=== PATIENT | female | born 1995 | race Caucasian/White ===

== ENCOUNTER → 2016-12-17 | Outpatient (REF) ==
[~2016-12-17] MED LIST: ALBUTEROL 90 MCG; ATARAX50 MG PO; CATAPRES0.2 MG PO; COLACE 100100 MG/CAP PO; COMPAZINE 110 MG/TAB PO; COREG 6.256.25 MG/TA PO; DESYREL 100MG100 MG PO; DESYREL 50MG50 MG PO; INVEGA INJ; INVEGA6 MG PO; LATUDA40 MG PO; LATUDA60 MG PO; LITHIUM 30300 MG/CAP PO; LITHIUM 60600 MG/CAP PO; LOXAPINE PO; MINIPRESS2 MG PO; NICORETTE GUM2 MG PO; PERI-COLACE 501 TAB PO; PRILOSEC 20MG20 MG PO; PROAIR HFA0.09 MG/AC IH; PROPYLTHIOURACI50 M1 PO; PROTONIX 40MG T40 MG PO; PROZAC40 MG PO; THORAZINE 550 MG/TAB PO; TRILAFON4 MG PO; TRILEPTAL 300M300 MG PO; VISTARIL 2525 MG/CAP PO; ZANTAC 150MG T150 MG PO
[2016-12-17 09:26] LABS: THYROID STIMULATING HORMONE < 0.015 uIU/mL (0.465-4.680)
== END ==
LOC: ZLAB.WCH 08:35
DX: Z01.89 Encounter for other specified special examinations (principal)

== ENCOUNTER 2016-12-18 12:25 | Emergency (ER) | payer MEDICAID ==
[~2016-12-18] VITALS: Ht 160 cm; Wt 104.5 kg
[~2016-12-18 12:25] MED LIST changes: -ATARAX50 MG PO; -CATAPRES0.2 MG PO; -COREG 6.256.25 MG/TA PO; -INVEGA INJ; -INVEGA6 MG PO; -PROAIR HFA0.09 MG/AC IH; -PROPYLTHIOURACI50 M1 PO; -PROTONIX 40MG T40 MG PO; -VISTARIL 2525 MG/CAP PO
[2016-12-18 12:26] VITALS: TEMP 97.9
[2016-12-18 13:42] LABS: BASO % 0.5 % (0.0-2.0); EOS # 0.5 (0.0-0.7); EOS % 6.5 % (0-4.0); GRAN # 3.9 (1.4-6.5); LYMPH # 2.8 (1.2-3.4); LYMPH % 36.2 % (20.0-51.0); MEAN CELL VOLUME 78 fl (80.0-100.0); MEAN CORPUSCULAR HGB CONC 31 g/dl (33.0-37.0); MEAN PLATELET VOLUME 9.1 fl (7.4-10.4); MONO # 0.5 (0.1-0.6); MONO % 6.5 % (1.7-9.3); PLATELET COUNT 395 K/mm3 (130-400); RED BLOOD COUNT 4.41 M/mm3 (4.10-5.30); REDCELL DISTRIBUTION WIDTH-CV 16.5 % (11.5-14.5); WHITE BLOOD COUNT 7.8 K/mm3 (4.8-10.8)
[2016-12-18 13:46] LABS: HEMATOCRIT 34.4 % (37.0-47.0); HEMOGLOBIN 10.8 g/dl (12.5-16.0); MEAN CORPUSCULAR HEMOGLOBIN 24 pg (27.0-31.0)
[2016-12-18 13:52] LABS: ADJUSTED CALCIUM 9.5 mg/dL (8.4-10.2); ALANINE AMINOTRANSFERASE 55 U/L (9-52); ALBUMIN 3.8 gm/dL (3.5-5.0); ALKALINE PHOSPHATASE 135 U/L (50-136); ANION GAP 10 mmol/L (7-16); BILIRUBIN,TOTAL 0.5 mg/dL (0.0-1.0); BLOOD UREA NITROGEN 8 mg/dL (7-17); CALCIUM 9.3 mg/dL (8.4-10.2); CARBON DIOXIDE 23 mmol/L (22-30); CHLORIDE 107 mmol/L (98-107); CREATININE, serum 0.53 mg/dL (0.52-1.25); GLUCOSE 81 mg/dL (74-106); POTASSIUM 4.1 mmol/L (3.4-5.0); SODIUM 139 mmol/L (137-145); TOTAL PROTEIN 6.7 gm/dL (6.4-8.2)
[2016-12-18 14:05] LABS: TROPONIN-I < 0.012 ng/mL (0.000-0.034)
[2016-12-18 14:08] LABS: PROLACTIN 34.4 ng/mL (3.0-18.6)
[2016-12-18 16:52] VITALS: BP 107/74; PULSE 87
[2016-12-19] MEDS ORDERED: DESYREL 100MG100 MG PO (04:22)
[2016-12-19] MEDS ORDERED: VISTARIL 2525 MG/CAP PO (04:24)
[2016-12-19] MEDS ORDERED: CATAPRES0.2 MG PO (04:25)
[2016-12-19] MEDS ORDERED: INVEGA INJ (04:26)
== END 2016-12-18 16:48 | disposition home or self-care (01) ==
LOC: COL.ER 12:25
PROVIDERS: Emergency Medicine
DX: R55 Syncope and collapse (principal); S09.90XA Unspecified injury of head, initial encounter; S19.9XXA Unspecified injury of neck, initial encounter; W18.39XA Other fall on same level, initial encounter; Y92.009 Unspecified place in unspecified non-institutional (private) residence as the place of occurrence of the external cause
CPT/HCPCS: J7030

== ENCOUNTER 2016-12-18 23:05 | Observation (INO) | payer MEDICAID ==
[~2016-12-18] VITALS: Ht 154.9 cm; Wt 104.8 kg
[2016-12-19 00:27] LABS: INR 0.9 (0.8-3.0); PROTHROMBIN TIME 10.3 SECONDS (9.7-12.8)
[2016-12-19 00:29] LABS: PARTIAL THROMBOPLASTIN TIME 17.7 SECONDS (26.0-37.0)
[2016-12-19 00:33] LABS: ADJUSTED CALCIUM 9.5 mg/dL (8.4-10.2); ALANINE AMINOTRANSFERASE 51 U/L (9-52); ALBUMIN 3.7 gm/dL (3.5-5.0); ALKALINE PHOSPHATASE 120 U/L (50-136); ANION GAP 9 mmol/L (7-16); BILIRUBIN,TOTAL 0.3 mg/dL (0.0-1.0); BLOOD UREA NITROGEN 12 mg/dL (7-17); CALCIUM 9.3 mg/dL (8.4-10.2); CARBON DIOXIDE 24 mmol/L (22-30); CHLORIDE 108 mmol/L (98-107); GLUCOSE 82 mg/dL (74-106); LIPASE 86 U/L (23-300); POTASSIUM 3.9 mmol/L (3.4-5.0); SODIUM 141 mmol/L (137-145); TOTAL PROTEIN 6.5 gm/dL (6.4-8.2)
[2016-12-19 00:37] LABS: ACETAMINOPHEN < 10 ug/mL (10-30); SALICYLATE < 1.0 mg/dL
[2016-12-19 00:49] LABS: BASO # 0.1 (0.0-0.2); BASO % 0.7 % (0.0-2.0); EOS # 0.5 (0.0-0.7); EOS % 5.3 % (0-4.0); GRAN # 4.4 (1.4-6.5); GRAN % 44.4 % (42.2-75.2); HEMATOCRIT 34.9 % (37.0-47.0); HEMOGLOBIN 10.8 g/dl (12.5-16.0); LYMPH # 4.3 (1.2-3.4); LYMPH % 43.3 % (20.0-51.0); MEAN CELL VOLUME 78 fl (80.0-100.0); MEAN CORPUSCULAR HEMOGLOBIN 24 pg (27.0-31.0); MEAN CORPUSCULAR HGB CONC 31 g/dl (33.0-37.0); MEAN PLATELET VOLUME 9.2 fl (7.4-10.4); MONO # 0.6 (0.1-0.6); PLATELET COUNT 425 K/mm3 (130-400); RED BLOOD COUNT 4.46 M/mm3 (4.10-5.30); REDCELL DISTRIBUTION WIDTH-CV 16.6 % (11.5-14.5)
[2016-12-19] MEDS ORDERED: DESYREL 100MG100 MG PO (04:22)
[2016-12-19] MEDS ORDERED: VISTARIL 2525 MG/CAP PO (04:24)
[2016-12-19] MEDS ORDERED: CATAPRES0.2 MG PO (04:25)
[2016-12-19] MEDS ORDERED: INVEGA INJ (04:26)
[2016-12-19 04:37] VITALS: BP 113/50; PULSE 83; TEMP 98.1
[2016-12-19 09:57] VITALS: BP 119/36; PULSE 91; TEMP 98.2
[2016-12-19 13:59] VITALS: BP 149/75; PULSE 75; TEMP 98.8
[2016-12-19 14:00] VITALS: BP 129/71; PULSE 103; TEMP 98.9
[2016-12-19 15:37] LABS: AMPHETAMINE URINE NEGATIVE; BARBITURATES URINE NEGATIVE; BENZODIAZEPINES URINE NEGATIVE; BUPRENORPHINE URINE NEGATIVE; METHADONE URINE NEGATIVE; OPIATES URINE NEGATIVE; OXYCODONE URINE NEGATIVE; PHENCYCLIDINE URINE NEGATIVE; PROPOXYPHENE URINE NEGATIVE; THC CANNABINOIDS URINE NEGATIVE
[2016-12-19 18:20] VITALS: BP 108/47; PULSE 99; TEMP 98.4
[2016-12-19 20:31] VITALS: BP 121/55; PULSE 96; TEMP 98.7
[2016-12-20 00:21] VITALS: BP 87/39; PULSE 96; TEMP 97.5
[2016-12-20 05:23] VITALS: BP 99/43; PULSE 76; TEMP 98.1
[2016-12-20 09:58] VITALS: BP 123/68; PULSE 77
[2016-12-20 14:31] VITALS: BP 104/51; PULSE 89; TEMP 98.7
[2016-12-20 18:07] VITALS: BP 144/66; PULSE 98; TEMP 98.5
[2016-12-21 00:11] VITALS: BP 108/67; PULSE 108; TEMP 98.4
[2016-12-21 06:15] VITALS: BP 94/41; PULSE 0
[2016-12-21 10:31] VITALS: BP 91/45; PULSE 83; TEMP 98.6
[2016-12-21 14:15] VITALS: BP 139/78; PULSE 100; TEMP 98.5
== END 2016-12-21 17:55 | disposition home or self-care (01) ==
LOC: COL.ER 23:05 → SDCO 12-19 00:38 → SURG 12-19 02:49
PROVIDERS: Emergency Medicine
DX: T18.4XXA Foreign body in colon, initial encounter (principal); K31.89 Other diseases of stomach and duodenum; K21.9 Gastro-esophageal reflux disease without esophagitis; F29 Unspecified psychosis not due to a substance or known physiological condition; E28.2 Polycystic ovarian syndrome; J45.909 Unspecified asthma, uncomplicated; F17.210 Nicotine dependence, cigarettes, uncomplicated; Z90.49 Acquired absence of other specified parts of digestive tract; Z86.59 Personal history of other mental and behavioral disorders; Z81.8 Family history of other mental and behavioral disorders
CPT/HCPCS: G0378; J2250; J3010; J7120

== ENCOUNTER 2017-01-08 15:20 | Observation (INO) | payer MEDICAID ==
[~2017-01-08] VITALS: Ht 157.5 cm; Wt 104.2 kg
[~2017-01-08 15:20] MED LIST changes: +CATAPRES0.2 MG PO; +INVEGA INJ; +VISTARIL 2525 MG/CAP PO
[2017-01-08 17:18] LABS: BASO # 0.1 (0.0-0.2); BASO % 0.6 % (0.0-2.0); EOS # 0.3 (0.0-0.7); EOS % 2.9 % (0-4.0); GRAN # 6.4 (1.4-6.5); GRAN % 60.3 % (42.2-75.2); HEMATOCRIT 37.9 % (37.0-47.0); LYMPH # 3.2 (1.2-3.4); LYMPH % 30.4 % (20.0-51.0); MEAN CELL VOLUME 78 fl (80.0-100.0); MEAN CORPUSCULAR HEMOGLOBIN 25 pg (27.0-31.0); MEAN CORPUSCULAR HGB CONC 31 g/dl (33.0-37.0); MEAN PLATELET VOLUME 9.3 fl (7.4-10.4); MONO # 0.6 (0.1-0.6); MONO % 5.6 % (1.7-9.3); PLATELET COUNT 407 K/mm3 (130-400); RED BLOOD COUNT 4.85 M/mm3 (4.10-5.30); REDCELL DISTRIBUTION WIDTH-CV 16.6 % (11.5-14.5); WHITE BLOOD COUNT 10.6 K/mm3 (4.8-10.8)
[2017-01-08 17:19] LABS: HEMOGLOBIN 11.9 g/dl (12.5-16.0)
[2017-01-08 17:38] LABS: PH 5 (5-8); URINE APPEARANCE Cloudy; URINE BACTERIA Rare /hpf; URINE BILIRUBIN Negative (NEGATIVE); URINE BLOOD Negative (NEGATIVE); URINE COLOR Yellow; URINE GLUCOSE Negative (NEGATIVE); URINE KETONE Negative (NEGATIVE); URINE UROBILINOGEN Negative (NEGATIVE)
[2017-01-08 17:42] LABS: ADJUSTED CALCIUM 9.6 mg/dL (8.4-10.2); ALANINE AMINOTRANSFERASE 25 U/L (9-52); ALBUMIN 4.5 gm/dL (3.5-5.0); ALKALINE PHOSPHATASE 135 U/L (50-136); ANION GAP 12 mmol/L (7-16); BILIRUBIN,TOTAL 0.5 mg/dL (0.0-1.0); BLOOD UREA NITROGEN 14 mg/dL (7-17); CARBON DIOXIDE 25 mmol/L (22-30); CHLORIDE 104 mmol/L (98-107); GLUCOSE 83 mg/dL (74-106); LIPASE 49 U/L (23-300); POTASSIUM 3.8 mmol/L (3.4-5.0); SODIUM 141 mmol/L (137-145)
[2017-01-08 17:43] LABS: ACETAMINOPHEN < 10 ug/mL (10-30); SALICYLATE < 1.0 mg/dL
[2017-01-08 17:47] LABS: AMPHETAMINE URINE NEGATIVE; BARBITURATES URINE NEGATIVE; BENZODIAZEPINES URINE NEGATIVE; BUPRENORPHINE URINE NEGATIVE; METHADONE URINE NEGATIVE; OPIATES URINE NEGATIVE; OXYCODONE URINE NEGATIVE; PHENCYCLIDINE URINE NEGATIVE; PROPOXYPHENE URINE NEGATIVE; THC CANNABINOIDS URINE NEGATIVE
[2017-01-08 20:58] LABS: CHLAMYDIA/TRACH by PCR Female NOT DETECTED; NEISSERIA GON by PCR Female NOT DETECTED
[2017-01-08] MEDS ORDERED: COREG 6.256.25 MG/TA PO (23:03)
[2017-01-09 00:36] VITALS: BP 114/66; PULSE 81; TEMP 98.4
[2017-01-09 01:18] VITALS: BP 114/66; PULSE 81; TEMP 98.4
[2017-01-09 07:46] VITALS: BP 99/52; PULSE 56; TEMP 97.9
[2017-01-09 20:45] VITALS: BP 106/54; PULSE 86; TEMP 99.6
== END 2017-01-10 16:55 ==
LOC: COL.ER 15:20 → ICU 23:35
PROVIDERS: Emergency Medicine
DX: F43.10 Post-traumatic stress disorder, unspecified (principal); F32.9 Major depressive disorder, single episode, unspecified; R45.851 Suicidal ideations; F51.04 Psychophysiologic insomnia; K21.9 Gastro-esophageal reflux disease without esophagitis; J45.909 Unspecified asthma, uncomplicated; E28.2 Polycystic ovarian syndrome; R10.30 Lower abdominal pain, unspecified; Z90.49 Acquired absence of other specified parts of digestive tract
CPT/HCPCS: 90791-AI; G0378

== ENCOUNTER 2017-01-13 17:26 | Emergency (ER) | payer MEDICAID ==
[~2017-01-13] VITALS: Ht 157.5 cm; Wt 104.5 kg
[~2017-01-13 17:26] MED LIST changes: +COREG 6.256.25 MG/TA PO
[2017-01-13 17:28] VITALS: TEMP 98.1
[2017-01-13 18:15] LABS: BASO % 0.4 % (0.0-2.0); EOS # 0.4 (0.0-0.7); EOS % 3.5 % (0-4.0); GRAN # 6.5 (1.4-6.5); GRAN % 58.8 % (42.2-75.2); LYMPH # 3.4 (1.2-3.4); LYMPH % 30.7 % (20.0-51.0); MEAN CELL VOLUME 78 fl (80.0-100.0); MEAN CORPUSCULAR HGB CONC 32 g/dl (33.0-37.0); MEAN PLATELET VOLUME 9.1 fl (7.4-10.4); MONO # 0.7 (0.1-0.6); MONO % 6.4 % (1.7-9.3); PLATELET COUNT 358 K/mm3 (130-400); RED BLOOD COUNT 4.55 M/mm3 (4.10-5.30); REDCELL DISTRIBUTION WIDTH-CV 16.8 % (11.5-14.5)
[2017-01-13 18:16] LABS: HEMATOCRIT 35.4 % (37.0-47.0); HEMOGLOBIN 11.2 g/dl (12.5-16.0); MEAN CORPUSCULAR HEMOGLOBIN 25 pg (27.0-31.0)
[2017-01-13 18:23] LABS: ADJUSTED CALCIUM 9.4 mg/dL (8.4-10.2); ALBUMIN 4.2 gm/dL (3.5-5.0); BILIRUBIN,TOTAL 0.4 mg/dL (0.0-1.0); CALCIUM 9.6 mg/dL (8.4-10.2); CREATININE, serum 0.61 mg/dL (0.52-1.25); TOTAL PROTEIN 7.3 gm/dL (6.4-8.2)
[2017-01-13] MEDS ORDERED: INVEGA6 MG PO (19:13)
[2017-01-13 19:14] VITALS: BP 117/67; PULSE 101
[2017-01-14] MEDS ORDERED: ATARAX50 MG PO (15:17)
[2017-01-14] MEDS ORDERED: PROPYLTHIOURACI50 M1 PO (15:24)
== END 2017-01-13 19:47 | disposition home or self-care (01) ==
LOC: COL.ER 17:26
PROVIDERS: Nurse Practitioner
DX: S99.912A Unspecified injury of left ankle, initial encounter (principal); S93.402A Sprain of unspecified ligament of left ankle, initial encounter; S83.92XA Sprain of unspecified site of left knee, initial encounter; R42 Dizziness and giddiness; F31.9 Bipolar disorder, unspecified; F43.10 Post-traumatic stress disorder, unspecified; F41.9 Anxiety disorder, unspecified; J45.909 Unspecified asthma, uncomplicated; F17.210 Nicotine dependence, cigarettes, uncomplicated; W18.39XA Other fall on same level, initial encounter; Y92.009 Unspecified place in unspecified non-institutional (private) residence as the place of occurrence of the external cause

== ENCOUNTER 2017-01-14 13:36 | Observation (INO) | payer MEDICAID ==
[~2017-01-14] VITALS: Ht 157.5 cm; Wt 102.7 kg
[~2017-01-14 13:36] MED LIST changes: +INVEGA6 MG PO
[2017-01-14 14:45] LABS: PH 6 (5-8); SQUAMOUS EPITHELIAL 0-2 /hpf; URINE APPEARANCE Clear; URINE BACTERIA None Seen /hpf; URINE BILIRUBIN Negative (NEGATIVE); URINE BLOOD Negative (NEGATIVE); URINE COLOR Yellow; URINE GLUCOSE Negative (NEGATIVE); URINE KETONE Negative (NEGATIVE); URINE RBC 0-2 /hpf; URINE UROBILINOGEN Negative (NEGATIVE)
[2017-01-14 15:01] LABS: AMPHETAMINE URINE NEGATIVE; BARBITURATES URINE NEGATIVE; BENZODIAZEPINES URINE NEGATIVE; BUPRENORPHINE URINE NEGATIVE; METHADONE URINE NEGATIVE; OPIATES URINE NEGATIVE; OXYCODONE URINE NEGATIVE; PHENCYCLIDINE URINE NEGATIVE; PROPOXYPHENE URINE NEGATIVE; THC CANNABINOIDS URINE NEGATIVE
[2017-01-14 15:03] LABS: BASO # 0.1 (0.0-0.2); BASO % 0.5 % (0.0-2.0); EOS # 0.4 (0.0-0.7); GRAN # 8.4 (1.4-6.5); GRAN % 65.1 % (42.2-75.2); LYMPH # 3.2 (1.2-3.4); MEAN CELL VOLUME 78 fl (80.0-100.0); MEAN CORPUSCULAR HGB CONC 32 g/dl (33.0-37.0); MEAN PLATELET VOLUME 9.2 fl (7.4-10.4); MONO # 0.8 (0.1-0.6); MONO % 6.2 % (1.7-9.3); PLATELET COUNT 366 K/mm3 (130-400); REDCELL DISTRIBUTION WIDTH-CV 17.2 % (11.5-14.5); WHITE BLOOD COUNT 12.9 K/mm3 (4.8-10.8)
[2017-01-14 15:04] LABS: HEMOGLOBIN 11.4 g/dl (12.5-16.0); MEAN CORPUSCULAR HEMOGLOBIN 25 pg (27.0-31.0)
[2017-01-14] MEDS ORDERED: ATARAX50 MG PO (15:17)
[2017-01-14 15:24] LABS: ADJUSTED CALCIUM 9.3 mg/dL (8.4-10.2); ALANINE AMINOTRANSFERASE 27 U/L (9-52); ALBUMIN 4.3 gm/dL (3.5-5.0); ALKALINE PHOSPHATASE 119 U/L (50-136); ANION GAP 10 mmol/L (7-16); BILIRUBIN,TOTAL 0.4 mg/dL (0.0-1.0); BLOOD UREA NITROGEN 17 mg/dL (7-17); CALCIUM 9.5 mg/dL (8.4-10.2); CARBON DIOXIDE 24 mmol/L (22-30); CHLORIDE 105 mmol/L (98-107); CREATININE, serum 0.66 mg/dL (0.52-1.25); GLUCOSE 68 mg/dL (74-106); LIPASE 78 U/L (23-300); POTASSIUM 3.6 mmol/L (3.4-5.0); SODIUM 139 mmol/L (137-145); TOTAL PROTEIN 7.4 gm/dL (6.4-8.2)
[2017-01-14] MEDS ORDERED: PROPYLTHIOURACI50 M1 PO (15:24)
[2017-01-14 15:29] LABS: ACETAMINOPHEN < 10 ug/mL (10-30); SALICYLATE < 1.0 mg/dL
[2017-01-14 15:35] LABS: TROPONIN-I < 0.012 ng/mL (0.000-0.034)
[2017-01-14 23:56] VITALS: BP 109/57; PULSE 77; TEMP 98.4
[2017-01-15 00:26] VITALS: BP 109/57; PULSE 77; TEMP 98.4
[2017-01-15 18:08] LABS: PH 7 (5-8); SQUAMOUS EPITHELIAL 0-2 /hpf; URINE APPEARANCE Cloudy; URINE BACTERIA Rare /hpf; URINE BILIRUBIN Negative (NEGATIVE); URINE BLOOD Negative (NEGATIVE); URINE COLOR Yellow; URINE GLUCOSE Negative (NEGATIVE); URINE KETONE Negative (NEGATIVE); URINE RBC 0-2 /hpf; URINE UROBILINOGEN Negative (NEGATIVE)
[2017-01-15 20:19] VITALS: BP 129/74; PULSE 95; TEMP 99.2
[2017-01-16 10:35] VITALS: BP 122/69; PULSE 82; TEMP 98.6
[2017-01-16 15:12] LABS: BASO # 0.1 (0.0-0.2); BASO % 0.5 % (0.0-2.0); EOS # 0.6 (0.0-0.7); EOS % 4.5 % (0-4.0); GRAN # 7.4 (1.4-6.5); GRAN % 59.6 % (42.2-75.2); LYMPH # 3.6 (1.2-3.4); LYMPH % 28.8 % (20.0-51.0); MEAN CELL VOLUME 77 fl (80.0-100.0); MEAN CORPUSCULAR HGB CONC 32 g/dl (33.0-37.0); MEAN PLATELET VOLUME 9.3 fl (7.4-10.4); MONO # 0.8 (0.1-0.6); MONO % 6.4 % (1.7-9.3); PLATELET COUNT 344 K/mm3 (130-400); WHITE BLOOD COUNT 12.4 K/mm3 (4.8-10.8)
[2017-01-16 15:19] LABS: HEMATOCRIT 36.4 % (37.0-47.0); HEMOGLOBIN 11.6 g/dl (12.5-16.0); MEAN CORPUSCULAR HEMOGLOBIN 25 pg (27.0-31.0)
== END 2017-01-16 21:05 ==
LOC: COL.ER 13:36 → ICU 23:07
PROVIDERS: Physician Assistant; Psychiatry & Neurology Psychiatry
DX: F31.9 Bipolar disorder, unspecified (principal); F43.10 Post-traumatic stress disorder, unspecified; F60.3 Borderline personality disorder; R41.83 Borderline intellectual functioning; R45.1 Restlessness and agitation; R07.9 Chest pain, unspecified
CPT/HCPCS: 90791-AI; G0378

== ENCOUNTER 2017-01-24 23:17 | Emergency (ER) | payer MEDICAID ==
[~2017-01-24] VITALS: Ht 157.5 cm; Wt 109.1 kg
[~2017-01-24 23:17] MED LIST changes: +ATARAX50 MG PO; +PROPYLTHIOURACI50 M1 PO
[2017-01-24 23:18] VITALS: TEMP 99.3
[2017-01-24] MEDS ORDERED: PROAIR HFA0.09 MG/AC IH (23:24)
[2017-01-24 23:47] LABS: BASO # 0.1 (0.0-0.2); BASO % 0.5 % (0.0-2.0); EOS # 0.5 (0.0-0.7); EOS % 3.5 % (0-4.0); GRAN # 7.6 (1.4-6.5); GRAN % 58.9 % (42.2-75.2); LYMPH % 30.9 % (20.0-51.0); MEAN CELL VOLUME 77 fl (80.0-100.0); MEAN CORPUSCULAR HGB CONC 32 g/dl (33.0-37.0); MEAN PLATELET VOLUME 9.1 fl (7.4-10.4); MONO # 0.7 (0.1-0.6); MONO % 5.6 % (1.7-9.3); PLATELET COUNT 384 K/mm3 (130-400); RED BLOOD COUNT 4.31 M/mm3 (4.10-5.30)
[2017-01-24 23:50] LABS: HEMATOCRIT 33.3 % (37.0-47.0); HEMOGLOBIN 10.6 g/dl (12.5-16.0); MEAN CORPUSCULAR HEMOGLOBIN 25 pg (27.0-31.0)
[2017-01-24 23:59] LABS: ALANINE AMINOTRANSFERASE 49 U/L (9-52); ALKALINE PHOSPHATASE 141 U/L (50-136); ANION GAP 13 mmol/L (7-16); AST,SGOT 54 U/L (15-37); BILIRUBIN,TOTAL 0.3 mg/dL (0.0-1.0); BLOOD UREA NITROGEN 14 mg/dL (7-17); CALCIUM 9.3 mg/dL (8.4-10.2); CARBON DIOXIDE 19 mmol/L (22-30); CHLORIDE 110 mmol/L (98-107); CREATININE, serum 0.59 mg/dL (0.52-1.25); GLUCOSE 118 mg/dL (74-106); LIPASE 125 U/L (23-300); POTASSIUM 3.9 mmol/L (3.4-5.0); SODIUM 143 mmol/L (137-145); TOTAL PROTEIN 7.1 gm/dL (6.4-8.2)
[2017-01-25] LABS: C-REACTIVE PROTEIN < 0.5 mg/dL (0.0-0.9)
[2017-01-25 00:08] LABS: TROPONIN-I < 0.012 ng/mL (0.000-0.034)
[2017-01-25 00:09] LABS: COLLECTION METHOD CLEAN CATCH
[2017-01-25 00:14] LABS: MUCOUS Present /lpf; PH 5 (5-8); SQUAMOUS EPITHELIAL 0-2 /hpf; URINE APPEARANCE Clear; URINE BACTERIA None Seen /hpf; URINE BILIRUBIN Negative (NEGATIVE); URINE BLOOD 2+ (NEGATIVE); URINE COLOR Yellow; URINE GLUCOSE Negative (NEGATIVE); URINE KETONE Trace (NEGATIVE); URINE LEUKOCYTE ESTERASE Negative (NEGATIVE); URINE NITRATE Negative (NEGATIVE); URINE PROTEIN(semi-quant) Negative (NEGATIVE); URINE RBC 0-2 /hpf; URINE UROBILINOGEN Negative (NEGATIVE)
[2017-01-25 00:21] LABS: TRICYCLIC ANTIDEPRESS URINE NEGATIVE
[2017-01-25 02:36] VITALS: BP 129/59
[2017-01-25] MEDS ORDERED: PROTONIX 40MG T40 MG PO (02:37)
[2017-01-25 02:55] VITALS: PULSE 103
[2017-05-20] MEDS ORDERED: COREG 25MG25 MG/TAB PO (18:20)
[2017-07-27] MEDS ORDERED: FLEXERIL 1010 MG/TAB PO (03:35)
[2018-10-03] MEDS ORDERED: BUSPAR DIVIDOSE15 MG PO (00:22)
== END 2017-01-25 02:56 | disposition home or self-care (01) ==
LOC: COL.ER 23:17
PROVIDERS: Emergency Medicine
DX: K21.9 Gastro-esophageal reflux disease without esophagitis (principal); K59.00 Constipation, unspecified; F17.210 Nicotine dependence, cigarettes, uncomplicated; Z90.49 Acquired absence of other specified parts of digestive tract
CPT/HCPCS: J7030

== ENCOUNTER 2017-02-02 18:20 | Emergency (ER) | payer MEDICAID ==
[~2017-02-02] VITALS: Ht 157.5 cm; Wt 104.5 kg
[~2017-02-02 18:20] MED LIST changes: +PROAIR HFA0.09 MG/AC IH; +PROTONIX 40MG T40 MG PO
[2017-02-02 18:21] VITALS: TEMP 100.1
[2017-02-02 19:16] LABS: BASO # 0.1 (0.0-0.2); BASO % 0.5 % (0.0-2.0); EOS # 0.2 (0.0-0.7); EOS % 2.5 % (0-4.0); GRAN # 5.6 (1.4-6.5); GRAN % 58.7 % (42.2-75.2); LYMPH % 31.9 % (20.0-51.0); MEAN CELL VOLUME 79 fl (80.0-100.0); MEAN CORPUSCULAR HGB CONC 32 g/dl (33.0-37.0); MEAN PLATELET VOLUME 8.7 fl (7.4-10.4); MONO # 0.6 (0.1-0.6); MONO % 6.2 % (1.7-9.3); PLATELET COUNT 416 K/mm3 (130-400); RED BLOOD COUNT 4.58 M/mm3 (4.10-5.30); REDCELL DISTRIBUTION WIDTH-CV 18.3 % (11.5-14.5); WHITE BLOOD COUNT 9.5 K/mm3 (4.8-10.8)
[2017-02-02 19:20] LABS: HEMATOCRIT 36.1 % (37.0-47.0); HEMOGLOBIN 11.4 g/dl (12.5-16.0); MEAN CORPUSCULAR HEMOGLOBIN 25 pg (27.0-31.0)
[2017-02-02 19:33] LABS: ADJUSTED CALCIUM 9.5 mg/dL (8.4-10.2); ALBUMIN 4.4 gm/dL (3.5-5.0); BILIRUBIN,TOTAL 0.5 mg/dL (0.0-1.0); CALCIUM 9.8 mg/dL (8.4-10.2); CREATININE, serum 0.59 mg/dL (0.52-1.25); POTASSIUM 4.1 mmol/L (3.4-5.0); TOTAL PROTEIN 7.8 gm/dL (6.4-8.2)
[2017-02-02 20:51] VITALS: BP 134/89; PULSE 95
== END 2017-02-02 20:52 | disposition home or self-care (01) ==
LOC: COL.ER 18:20
PROVIDERS: Emergency Medicine
DX: E05.90 Thyrotoxicosis, unspecified without thyrotoxic crisis or storm (principal); F41.9 Anxiety disorder, unspecified; R06.00 Dyspnea, unspecified; R10.9 Unspecified abdominal pain; R07.9 Chest pain, unspecified; F31.9 Bipolar disorder, unspecified; F43.10 Post-traumatic stress disorder, unspecified; I10 Essential (primary) hypertension; F17.210 Nicotine dependence, cigarettes, uncomplicated
CPT/HCPCS: J7030

== ENCOUNTER → 2017-02-25 | Outpatient (REF) | LOC: ZLAB.WCH 08:37 | DX: Z01.89 Encounter for other specified special examinations (principal) ==

== ENCOUNTER 2017-03-02 21:46 | Emergency (ER) | payer MEDICAID ==
[~2017-03-02] VITALS: Ht 157.5 cm; Wt 109.1 kg
[2017-03-02 21:50] VITALS: TEMP 98.4
[2017-03-02 22:13] LABS: BASO # 0.1 (0.0-0.2); BASO % 0.5 % (0.0-2.0); EOS # 0.3 (0.0-0.7); EOS % 3.5 % (0-4.0); GRAN # 5.5 (1.4-6.5); GRAN % 59.1 % (42.2-75.2); HEMATOCRIT 41.4 % (37.0-47.0); HEMOGLOBIN 12.8 g/dl (12.5-16.0); LYMPH # 2.9 (1.2-3.4); LYMPH % 31.6 % (20.0-51.0); MEAN CELL VOLUME 82 fl (80.0-100.0); MEAN CORPUSCULAR HEMOGLOBIN 25 pg (27.0-31.0); MEAN CORPUSCULAR HGB CONC 31 g/dl (33.0-37.0); MONO # 0.5 (0.1-0.6); MONO % 5.1 % (1.7-9.3); PLATELET COUNT 373 K/mm3 (130-400); RED BLOOD COUNT 5.05 M/mm3 (4.10-5.30); WHITE BLOOD COUNT 9.2 K/mm3 (4.8-10.8)
[2017-03-02 22:28] LABS: ADJUSTED CALCIUM 9.7 mg/dL (8.4-10.2); ALANINE AMINOTRANSFERASE 33 U/L (9-52); ALBUMIN 4.4 gm/dL (3.5-5.0); ALKALINE PHOSPHATASE 138 U/L (50-136); ANION GAP 13 mmol/L (7-16); BILIRUBIN,TOTAL 0.5 mg/dL (0.0-1.0); BLOOD UREA NITROGEN 7 mg/dL (7-17); C-REACTIVE PROTEIN 0.6 mg/dL (0.0-0.9); CARBON DIOXIDE 23 mmol/L (22-30); CHLORIDE 106 mmol/L (98-107); CREATININE, serum 0.59 mg/dL (0.52-1.25); GLUCOSE 91 mg/dL (74-106); POTASSIUM 3.7 mmol/L (3.4-5.0); SODIUM 142 mmol/L (137-145); TOTAL PROTEIN 7.8 gm/dL (6.4-8.2)
[2017-03-02 22:48] LABS: TROPONIN-I < 0.012 ng/mL (0.000-0.034)
[2017-03-02 23:30] VITALS: BP 127/92; PULSE 104
== END 2017-03-02 23:30 | disposition home or self-care (01) ==
LOC: COL.ER 21:46
PROVIDERS: Emergency Medicine
DX: R07.89 Other chest pain (principal); R00.0 Tachycardia, unspecified; E05.00 Thyrotoxicosis with diffuse goiter without thyrotoxic crisis or storm
CPT/HCPCS: J1885

== ENCOUNTER 2017-03-03 23:51 | Emergency (ER) | payer MEDICAID ==
[2017-03-03 23:55] VITALS: TEMP 98.7
[2017-03-04 00:28] LABS: BASO # 0.1 (0.0-0.2); BASO % 0.9 % (0.0-2.0); EOS # 0.3 (0.0-0.7); EOS % 3.7 % (0-4.0); GRAN # 4.1 (1.4-6.5); GRAN % 49.7 % (42.2-75.2); HEMATOCRIT 38.3 % (37.0-47.0); HEMOGLOBIN 12.1 g/dl (12.5-16.0); LYMPH # 3.2 (1.2-3.4); LYMPH % 39.1 % (20.0-51.0); MEAN CELL VOLUME 82 fl (80.0-100.0); MEAN CORPUSCULAR HEMOGLOBIN 26 pg (27.0-31.0); MEAN CORPUSCULAR HGB CONC 32 g/dl (33.0-37.0); MEAN PLATELET VOLUME 8.9 fl (7.4-10.4); MONO # 0.5 (0.1-0.6); MONO % 6.4 % (1.7-9.3); PLATELET COUNT 380 K/mm3 (130-400); WHITE BLOOD COUNT 8.2 K/mm3 (4.8-10.8)
[2017-03-04 00:40] LABS: ADJUSTED CALCIUM 9.6 mg/dL (8.4-10.2); ALBUMIN 4.1 gm/dL (3.5-5.0); BILIRUBIN,TOTAL 0.4 mg/dL (0.0-1.0); CALCIUM 9.7 mg/dL (8.4-10.2); CREATININE, serum 0.66 mg/dL (0.52-1.25); POTASSIUM 3.9 mmol/L (3.4-5.0); TOTAL PROTEIN 7.6 gm/dL (6.4-8.2)
[2017-03-04 02:59] VITALS: BP 136/89; PULSE 93
[2017-03-04] MEDS ORDERED: PROPYLTHIOURACI50 M1 (22:16)
[2017-03-04] MEDS ORDERED: REVIA 50MG TABL50 MG PO (22:18)
[2017-03-04] MEDS ORDERED: FIORICET 325 MG1 TA1 PO (22:44)
== END 2017-03-04 03:03 | disposition home or self-care (01) ==
LOC: COL.ER 23:51
PROVIDERS: Emergency Medicine
DX: R00.2 Palpitations (principal); R51 Headache; R11.12 Projectile vomiting; F31.9 Bipolar disorder, unspecified; F41.9 Anxiety disorder, unspecified; F43.10 Post-traumatic stress disorder, unspecified; E05.00 Thyrotoxicosis with diffuse goiter without thyrotoxic crisis or storm
CPT/HCPCS: J1200; J3230; J7030

== ENCOUNTER 2017-03-04 19:08 | Emergency (ER) | payer MEDICAID ==
[~2017-03-04] VITALS: Ht 157.5 cm; Wt 110.9 kg
[2017-03-04 19:13] VITALS: TEMP 98.9
[2017-03-04 20:46] LABS: BASO # 0.1 (0.0-0.2); BASO % 0.6 % (0.0-2.0); EOS # 0.3 (0.0-0.7); EOS % 3.1 % (0-4.0); GRAN # 6.5 (1.4-6.5); GRAN % 63.3 % (42.2-75.2); HEMATOCRIT 39.8 % (37.0-47.0); HEMOGLOBIN 12.5 g/dl (12.5-16.0); LYMPH # 2.8 (1.2-3.4); LYMPH % 27.4 % (20.0-51.0); MEAN CELL VOLUME 82 fl (80.0-100.0); MEAN CORPUSCULAR HEMOGLOBIN 26 pg (27.0-31.0); MEAN CORPUSCULAR HGB CONC 31 g/dl (33.0-37.0); MEAN PLATELET VOLUME 9.1 fl (7.4-10.4); MONO # 0.6 (0.1-0.6); MONO % 5.4 % (1.7-9.3); PLATELET COUNT 390 K/mm3 (130-400); RED BLOOD COUNT 4.86 M/mm3 (4.10-5.30); WHITE BLOOD COUNT 10.3 K/mm3 (4.8-10.8)
[2017-03-04 20:56] LABS: ADJUSTED CALCIUM 9.7 mg/dL (8.4-10.2); ALANINE AMINOTRANSFERASE 39 U/L (9-52); ALBUMIN 4.3 gm/dL (3.5-5.0); ALKALINE PHOSPHATASE 127 U/L (50-136); ANION GAP 11 mmol/L (7-16); BILIRUBIN,TOTAL 0.5 mg/dL (0.0-1.0); BLOOD UREA NITROGEN 12 mg/dL (7-17); CALCIUM 9.9 mg/dL (8.4-10.2); CARBON DIOXIDE 26 mmol/L (22-30); CHLORIDE 105 mmol/L (98-107); CREATININE, serum 0.71 mg/dL (0.52-1.25); GLUCOSE 78 mg/dL (74-106); POTASSIUM 3.9 mmol/L (3.4-5.0); SODIUM 142 mmol/L (137-145)
[2017-03-04 21:01] LABS: ALCOHOL(ethanol),MEDICAL < 10 mg/dL
[2017-03-04] MEDS ORDERED: PROPYLTHIOURACI50 M1 (22:16)
[2017-03-04] MEDS ORDERED: REVIA 50MG TABL50 MG PO (22:18)
[2017-03-04] MEDS ORDERED: FIORICET 325 MG1 TA1 PO (22:44)
[2017-03-04 22:52] VITALS: BP 106/87; PULSE 98
== END 2017-03-04 22:53 | disposition home or self-care (01) ==
LOC: COL.ER 19:08
PROVIDERS: Emergency Medicine
DX: G43.909 Migraine, unspecified, not intractable, without status migrainosus (principal); E05.00 Thyrotoxicosis with diffuse goiter without thyrotoxic crisis or storm; F43.10 Post-traumatic stress disorder, unspecified; F60.9 Personality disorder, unspecified; J45.909 Unspecified asthma, uncomplicated; F17.210 Nicotine dependence, cigarettes, uncomplicated; Z90.49 Acquired absence of other specified parts of digestive tract
CPT/HCPCS: J7030

== ENCOUNTER → 2017-03-06 | Outpatient (REF) ==
[~2017-03-06] MED LIST changes: +FIORICET 325 MG1 TA1 PO; +PROPYLTHIOURACI50 M1; +REVIA 50MG TABL50 MG PO
[2017-03-06 11:56] LABS: CHLAMYDIA/TRACH by PCR Female NOT DETECTED; NEISSERIA GON by PCR Female NOT DETECTED
== END ==
LOC: ZLAB.WCH 08:56
PROVIDERS: Nurse Practitioner Primary Care
DX: Z01.89 Encounter for other specified special examinations (principal)

== ENCOUNTER 2017-05-14 13:51 | Emergency (ER) | payer MEDICAID ==
[~2017-05-14] VITALS: Ht 160 cm; Wt 113.6 kg
[2017-05-14 14:13] VITALS: TEMP 99
[2017-05-14 16:18] LABS: BASO # 0.1 (0.0-0.2); BASO % 0.5 % (0.0-2.0); EOS # 0.5 (0.0-0.7); EOS % 3.8 % (0-4.0); GRAN # 8.6 (1.4-6.5); GRAN % 64.3 % (42.2-75.2); HEMATOCRIT 44.7 % (37.0-47.0); HEMOGLOBIN 14.3 g/dl (12.5-16.0); LYMPH # 3.5 (1.2-3.4); LYMPH % 26.2 % (20.0-51.0); MEAN CELL VOLUME 85 fl (80.0-100.0); MEAN CORPUSCULAR HEMOGLOBIN 27 pg (27.0-31.0); MEAN CORPUSCULAR HGB CONC 32 g/dl (33.0-37.0); MEAN PLATELET VOLUME 9.2 fl (7.4-10.4); MONO # 0.6 (0.1-0.6); MONO % 4.7 % (1.7-9.3); PLATELET COUNT 399 K/mm3 (130-400); RED BLOOD COUNT 5.28 M/mm3 (4.10-5.30); WHITE BLOOD COUNT 13.3 K/mm3 (4.8-10.8)
[2017-05-14 16:30] LABS: ADJUSTED CALCIUM 9.3 mg/dL (8.4-10.2); ALANINE AMINOTRANSFERASE 36 U/L (9-52); ALBUMIN 4.6 gm/dL (3.5-5.0); ALKALINE PHOSPHATASE 128 U/L (50-136); ANION GAP 9 mmol/L (7-16); BILIRUBIN,TOTAL 0.3 mg/dL (0.0-1.0); BLOOD UREA NITROGEN 7 mg/dL (7-17); CALCIUM 9.8 mg/dL (8.4-10.2); CARBON DIOXIDE 26 mmol/L (22-30); CHLORIDE 106 mmol/L (98-107); CREATININE, serum 0.61 mg/dL (0.52-1.25); GLUCOSE 86 mg/dL (74-106); POTASSIUM 4.3 mmol/L (3.4-5.0); SODIUM 141 mmol/L (137-145); TOTAL PROTEIN 8.1 gm/dL (6.4-8.2)
[2017-05-14 16:31] LABS: ACETAMINOPHEN < 10 ug/mL (10-30); ALCOHOL(ethanol),MEDICAL < 10 mg/dL; SALICYLATE < 1.0 mg/dL
[2017-05-14 16:33] LABS: INFLUENZA A NEGATIVE; INFLUENZA B NEGATIVE
[2017-05-14 16:34] LABS: AMPHETAMINE URINE NEGATIVE; BARBITURATES URINE NEGATIVE; BENZODIAZEPINES URINE NEGATIVE; BUPRENORPHINE URINE NEGATIVE; METHADONE URINE NEGATIVE; OPIATES URINE NEGATIVE; OXYCODONE URINE NEGATIVE; PHENCYCLIDINE URINE NEGATIVE; PROPOXYPHENE URINE NEGATIVE; THC CANNABINOIDS URINE NEGATIVE; TRICYCLIC ANTIDEPRESS URINE NEGATIVE
[2017-05-14 17:45] VITALS: BP 119/79
[2017-05-14] MEDS ORDERED: ZITHROMAX Z PA250 MG PO (18:33)
[2017-05-14 19:10] VITALS: PULSE 101
[2017-05-20] MEDS ORDERED: COREG 25MG25 MG/TAB PO (18:20)
== END 2017-05-14 19:10 | disposition home or self-care (01) ==
LOC: COL.ER 13:51
PROVIDERS: Family Medicine
DX: F32.9 Major depressive disorder, single episode, unspecified (principal); J20.9 Acute bronchitis, unspecified

== ENCOUNTER 2017-06-05 13:12 | Emergency (ER) | payer MEDICAID ==
[~2017-06-05] VITALS: Ht 157.5 cm; Wt 115.0 kg
[~2017-06-05 13:12] MED LIST changes: +COREG 25MG25 MG/TAB PO; +ZITHROMAX Z PA250 MG PO
[2017-06-05 13:13] VITALS: TEMP 98.3
[2017-06-05 13:39] LABS: COLLECTION METHOD CLEAN CATCH
[2017-06-05 13:47] LABS: PH 6 (5-8); SQUAMOUS EPITHELIAL 0-2 /hpf; URINE APPEARANCE Clear; URINE BACTERIA None Seen /hpf; URINE BILIRUBIN Negative (NEGATIVE); URINE BLOOD Negative (NEGATIVE); URINE COLOR Straw; URINE GLUCOSE Negative (NEGATIVE); URINE KETONE Negative (NEGATIVE); URINE LEUKOCYTE ESTERASE Negative (NEGATIVE); URINE NITRATE Negative (NEGATIVE); URINE PROTEIN(semi-quant) Negative (NEGATIVE); URINE RBC 0-2 /hpf; URINE UROBILINOGEN Negative (NEGATIVE)
[2017-06-05 13:58] LABS: TRICYCLIC ANTIDEPRESS URINE NEGATIVE
[2017-06-05 14:12] LABS: BASO # 0.1 (0.0-0.2); BASO % 0.6 % (0.0-2.0); EOS # 0.6 (0.0-0.7); EOS % 5.6 % (0-4.0); GRAN # 6.4 (1.4-6.5); GRAN % 56.7 % (42.2-75.2); HEMATOCRIT 38.9 % (37.0-47.0); HEMOGLOBIN 12.7 g/dl (12.5-16.0); LYMPH # 3.5 (1.2-3.4); LYMPH % 31.1 % (20.0-51.0); MEAN CELL VOLUME 83 fl (80.0-100.0); MEAN CORPUSCULAR HEMOGLOBIN 27 pg (27.0-31.0); MEAN CORPUSCULAR HGB CONC 33 g/dl (33.0-37.0); MEAN PLATELET VOLUME 9.3 fl (7.4-10.4); MONO # 0.6 (0.1-0.6); MONO % 5.6 % (1.7-9.3); PLATELET COUNT 360 K/mm3 (130-400); REDCELL DISTRIBUTION WIDTH-CV 14.8 % (11.5-14.5)
[2017-06-05 14:15] LABS: ALANINE AMINOTRANSFERASE 31 U/L (9-52); ALBUMIN 3.9 gm/dL (3.5-5.0); ALKALINE PHOSPHATASE 100 U/L (50-136); ANION GAP 6 mmol/L (7-16); AST,SGOT 17 U/L (15-37); BILIRUBIN,TOTAL 0.2 mg/dL (0.0-1.0); BLOOD UREA NITROGEN 7 mg/dL (7-17); CALCIUM 9.3 mg/dL (8.4-10.2); CARBON DIOXIDE 23 mmol/L (22-30); CHLORIDE 109 mmol/L (98-107); CREATININE, serum 0.53 mg/dL (0.52-1.25); GLUCOSE 100 mg/dL (74-106); POTASSIUM 3.8 mmol/L (3.4-5.0); SODIUM 138 mmol/L (137-145)
[2017-06-05 14:24] LABS: ACETAMINOPHEN < 10 ug/mL (10-30); ALCOHOL(ethanol),MEDICAL < 10 mg/dL; SALICYLATE < 1.0 mg/dL
[2017-06-05 14:58] VITALS: BP 133/94; PULSE 99
== END 2017-06-05 14:59 | disposition other institution (70) ==
LOC: COL.ER 13:12
PROVIDERS: Physician Assistant
DX: T18.2XXA Foreign body in stomach, initial encounter (principal); F31.9 Bipolar disorder, unspecified; E05.00 Thyrotoxicosis with diffuse goiter without thyrotoxic crisis or storm; F17.210 Nicotine dependence, cigarettes, uncomplicated

== ENCOUNTER 2017-06-05 20:12 | Inpatient (IN) | payer MEDICAID ==
[~2017-06-05] VITALS: Ht 157.5 cm; Wt 111.4 kg
[2017-06-05 20:35] LABS: TRICYCLIC ANTIDEPRESS URINE NEGATIVE
[2017-06-05 20:36] LABS: COLLECTION METHOD CLEAN CATCH
[2017-06-05 20:42] LABS: BASO # 0.1 (0.0-0.2); BASO % 0.6 % (0.0-2.0); EOS # 0.5 (0.0-0.7); EOS % 4.2 % (0-4.0); GRAN # 8.3 (1.4-6.5); GRAN % 64.4 % (42.2-75.2); HEMATOCRIT 41.4 % (37.0-47.0); HEMOGLOBIN 13.6 g/dl (12.5-16.0); LYMPH # 3.3 (1.2-3.4); LYMPH % 25.3 % (20.0-51.0); MEAN CELL VOLUME 83 fl (80.0-100.0); MEAN CORPUSCULAR HEMOGLOBIN 27 pg (27.0-31.0); MEAN CORPUSCULAR HGB CONC 33 g/dl (33.0-37.0); MEAN PLATELET VOLUME 10.1 fl (7.4-10.4); MONO # 0.7 (0.1-0.6); RED BLOOD COUNT 4.98 M/mm3 (4.10-5.30)
[2017-06-05 20:46] LABS: PH 6 (5-8); SQUAMOUS EPITHELIAL None Seen /hpf; URINE APPEARANCE Clear; URINE BACTERIA None Seen /hpf; URINE BILIRUBIN Negative (NEGATIVE); URINE BLOOD Negative (NEGATIVE); URINE COLOR Straw; URINE GLUCOSE Negative (NEGATIVE); URINE KETONE Negative (NEGATIVE); URINE LEUKOCYTE ESTERASE Negative (NEGATIVE); URINE NITRATE Negative (NEGATIVE); URINE PROTEIN(semi-quant) Negative (NEGATIVE); URINE RBC None Seen /hpf; URINE UROBILINOGEN Negative (NEGATIVE)
[2017-06-05 20:52] LABS: ACETAMINOPHEN < 10 ug/mL (10-30); ALANINE AMINOTRANSFERASE 30 U/L (9-52); ALBUMIN 4.2 gm/dL (3.5-5.0); ALCOHOL(ethanol),MEDICAL < 10 mg/dL; ALKALINE PHOSPHATASE 103 U/L (50-136); ANION GAP 9 mmol/L (7-16); AST,SGOT 22 U/L (15-37); BILIRUBIN,TOTAL 0.3 mg/dL (0.0-1.0); BLOOD UREA NITROGEN 6 mg/dL (7-17); CALCIUM 9.7 mg/dL (8.4-10.2); CARBON DIOXIDE 24 mmol/L (22-30); CHLORIDE 107 mmol/L (98-107); CREATININE, serum 0.56 mg/dL (0.52-1.25); GLUCOSE 107 mg/dL (74-106); PLATELET COUNT 266 K/mm3 (130-400); POTASSIUM 3.9 mmol/L (3.4-5.0); SALICYLATE < 1.0 mg/dL; SODIUM 140 mmol/L (137-145); TOTAL PROTEIN 7.4 gm/dL (6.4-8.2)
[2017-06-06 11:40] VITALS: BP 113/71; PULSE 81; TEMP 98.2
[2017-06-06 11:48] VITALS: BP 113/71; PULSE 81; TEMP 98.2
[2017-06-06 16:12] VITALS: BP 116/62; PULSE 101; TEMP 98.8
[2017-06-06 20:12] VITALS: BP 118/56; PULSE 97; TEMP 98.1
[2017-06-06 23:53] VITALS: BP 118/58; PULSE 94; TEMP 99.6
[2017-06-07 04:21] VITALS: BP 108/54; PULSE 95; TEMP 97.9
[2017-06-07 08:54] VITALS: BP 110/53; PULSE 81; TEMP 98
[2017-06-07 12:42] VITALS: BP 112/59; PULSE 81; TEMP 79.5
[2017-06-07 16:09] VITALS: BP 114/59; PULSE 115; TEMP 97.6
[2017-06-07 20:21] VITALS: BP 119/67; PULSE 110; TEMP 99
[2017-06-08 03:56] VITALS: BP 114/51; PULSE 101; TEMP 98.3
[2017-06-08 07:21] LABS: BASO # 0.1 (0.0-0.2); BASO % 0.6 % (0.0-2.0); EOS # 0.6 (0.0-0.7); GRAN # 5.7 (1.4-6.5); GRAN % 50.4 % (42.2-75.2); HEMATOCRIT 37.4 % (37.0-47.0); HEMOGLOBIN 12.1 g/dl (12.5-16.0); LYMPH # 4.3 (1.2-3.4); LYMPH % 37.5 % (20.0-51.0); MEAN CELL VOLUME 84 fl (80.0-100.0); MEAN CORPUSCULAR HEMOGLOBIN 27 pg (27.0-31.0); MEAN CORPUSCULAR HGB CONC 32 g/dl (33.0-37.0); MEAN PLATELET VOLUME 9.4 fl (7.4-10.4); MONO # 0.7 (0.1-0.6); MONO % 6.1 % (1.7-9.3); PLATELET COUNT 349 K/mm3 (130-400); RED BLOOD COUNT 4.46 M/mm3 (4.10-5.30); REDCELL DISTRIBUTION WIDTH-CV 15.1 % (11.5-14.5)
[2017-06-08 07:26] LABS: CALCIUM 9.8 mg/dL (8.4-10.2); CREATININE, serum 0.63 mg/dL (0.52-1.25)
[2017-06-08 13:27] VITALS: BP 124/66; PULSE 95; TEMP 98.1
[2017-06-08 17:00] VITALS: BP 108/53; PULSE 101
[2017-06-08 19:45] VITALS: BP 118/70; PULSE 111; TEMP 98.6
[2017-06-08 23:15] VITALS: BP 103/54; PULSE 105; TEMP 98.2
[2017-06-09 06:01] VITALS: BP 93/48; PULSE 90; TEMP 97.5
[2017-06-09 08:04] VITALS: BP 11/58; BP 110/58; PULSE 88; TEMP 97.6
[2017-06-09 11:18] VITALS: BP 116/51; PULSE 79; TEMP 98.5
[2017-06-09 16:13] VITALS: BP 120/66; PULSE 109; TEMP 98.8
[2017-06-09 20:19] VITALS: BP 103/53; PULSE 103; TEMP 98.4
[2017-06-09 23:46] VITALS: BP 119/59; PULSE 106; TEMP 97.4
[2017-06-10 04:41] VITALS: BP 113/55; PULSE 106; TEMP 98.5
[2017-06-10 08:00] VITALS: BP 114/62; PULSE 87; TEMP 98.1
[2017-06-10 11:06] VITALS: BP 113/67; PULSE 102; TEMP 98.2
[2017-06-10 15:38] VITALS: BP 110/60; BP 99/39; PULSE 84; TEMP 98.3
[2017-06-10 20:15] VITALS: BP 94/50; PULSE 100; TEMP 98.1
[2017-06-10 23:52] VITALS: BP 108/68; PULSE 102; TEMP 98
[2017-06-11 03:08] VITALS: BP 100/54; PULSE 90; TEMP 97.7
[2017-06-11 12:04] VITALS: BP 103/48; PULSE 88; TEMP 97.3
[2017-06-11] MEDS ORDERED: RISPERDAL 1M1 MG/TAB PO (15:56)
== END 2017-06-11 16:47 | disposition home or self-care (01) | DRG 394 ==
LOC: COL.ER 20:12 → MEDICAL 06-06 09:37
PROVIDERS: Family Medicine; Nurse Practitioner Family
DX: T18.2XXA Foreign body in stomach, initial encounter (principal); Z68.41 Body mass index [BMI] 40.0-44.9, adult; F31.9 Bipolar disorder, unspecified; F25.9 Schizoaffective disorder, unspecified; M25.562 Pain in left knee; R33.9 Retention of urine, unspecified; F50.89 Other specified eating disorder; F41.9 Anxiety disorder, unspecified; R07.89 Other chest pain; F17.210 Nicotine dependence, cigarettes, uncomplicated; X58.XXXA Exposure to other specified factors, initial encounter
CPT/HCPCS: 99222-AI; 99231-AI; 99232-AI; 99239; J1885; J2405; J7030

== ENCOUNTER → 2017-06-19 | Outpatient (REF) ==
[~2017-06-19] MED LIST changes: +FLAGYL500 MG PO; +RISPERDAL 1M1 MG/TAB PO; +SEROQUEL 2525 MG/TAB PO
== END ==
LOC: ZLAB.WCH 18:03
DX: Z01.89 Encounter for other specified special examinations (principal)

== ENCOUNTER 2017-06-21 00:20 | Emergency (ER) | payer MEDICAID ==
[~2017-06-21] VITALS: Ht 157.5 cm; Wt 116.4 kg
[~2017-06-21 00:20] MED LIST changes: -FLAGYL500 MG PO; -SEROQUEL 2525 MG/TAB PO
[2017-06-21] MEDS ORDERED: SEROQUEL 2525 MG/TAB PO (00:32)
[2017-06-21] MEDS ORDERED: FLAGYL500 MG PO (00:32)
[2017-06-21 00:48] LABS: BASO # 0.1 (0.0-0.2); BASO % 0.7 % (0.0-2.0); EOS # 0.5 (0.0-0.7); EOS % 4.7 % (0-4.0); GRAN # 5.2 (1.4-6.5); GRAN % 49.4 % (42.2-75.2); HEMATOCRIT 38.4 % (37.0-47.0); HEMOGLOBIN 12.6 g/dl (12.5-16.0); LYMPH % 38.5 % (20.0-51.0); MEAN CELL VOLUME 84 fl (80.0-100.0); MEAN CORPUSCULAR HEMOGLOBIN 28 pg (27.0-31.0); MEAN CORPUSCULAR HGB CONC 33 g/dl (33.0-37.0); MEAN PLATELET VOLUME 9.4 fl (7.4-10.4); MONO # 0.7 (0.1-0.6); MONO % 6.4 % (1.7-9.3); PLATELET COUNT 336 K/mm3 (130-400); RED BLOOD COUNT 4.57 M/mm3 (4.10-5.30); REDCELL DISTRIBUTION WIDTH-CV 14.9 % (11.5-14.5)
[2017-06-21 01:19] LABS: ACETAMINOPHEN < 10 ug/mL (10-30); ALANINE AMINOTRANSFERASE 38 U/L (9-52); ALCOHOL(ethanol),MEDICAL < 10 mg/dL; ALKALINE PHOSPHATASE 100 U/L (50-136); ANION GAP 9 mmol/L (7-16); AST,SGOT 26 U/L (15-37); BILIRUBIN,TOTAL 0.4 mg/dL (0.0-1.0); BLOOD UREA NITROGEN 10 mg/dL (7-17); CALCIUM 9.5 mg/dL (8.4-10.2); CARBON DIOXIDE 26 mmol/L (22-30); CHLORIDE 105 mmol/L (98-107); CREATININE, serum 0.65 mg/dL (0.52-1.25); GLUCOSE 97 mg/dL (74-106); POTASSIUM 3.7 mmol/L (3.4-5.0); SALICYLATE < 1.0 mg/dL; SODIUM 140 mmol/L (137-145); TOTAL PROTEIN 7.1 gm/dL (6.4-8.2)
[2017-06-21 01:47] LABS: COLLECTION METHOD CLEAN CATCH
[2017-06-21 02:04] LABS: MUCOUS Present /lpf; PH 5 (5-8); SQUAMOUS EPITHELIAL 0-2 /hpf; URINE APPEARANCE Clear; URINE BACTERIA None Seen /hpf; URINE BILIRUBIN Negative (NEGATIVE); URINE BLOOD Negative (NEGATIVE); URINE COLOR Yellow; URINE GLUCOSE Negative (NEGATIVE); URINE KETONE Negative (NEGATIVE); URINE LEUKOCYTE ESTERASE Negative (NEGATIVE); URINE NITRATE Negative (NEGATIVE); URINE PROTEIN(semi-quant) Negative (NEGATIVE); URINE RBC 0-2 /hpf; URINE UROBILINOGEN Negative (NEGATIVE)
[2017-06-21 02:06] LABS: TRICYCLIC ANTIDEPRESS URINE NEGATIVE
[2017-06-22 08:46] LABS: BASO # 0.1 (0.0-0.2); BASO % 0.5 % (0.0-2.0); EOS # 0.5 (0.0-0.7); GRAN # 4.7 (1.4-6.5); GRAN % 50.1 % (42.2-75.2); HEMATOCRIT 40.4 % (37.0-47.0); HEMOGLOBIN 12.9 g/dl (12.5-16.0); LYMPH # 3.5 (1.2-3.4); MEAN CELL VOLUME 85 fl (80.0-100.0); MEAN CORPUSCULAR HEMOGLOBIN 27 pg (27.0-31.0); MEAN CORPUSCULAR HGB CONC 32 g/dl (33.0-37.0); MEAN PLATELET VOLUME 9.1 fl (7.4-10.4); MONO # 0.6 (0.1-0.6); MONO % 6.1 % (1.7-9.3); PLATELET COUNT 323 K/mm3 (130-400); RED BLOOD COUNT 4.73 M/mm3 (4.10-5.30); REDCELL DISTRIBUTION WIDTH-CV 14.9 % (11.5-14.5)
[2017-06-22 08:58] LABS: BILIRUBIN,TOTAL 0.3 mg/dL (0.0-1.0); CALCIUM 9.6 mg/dL (8.4-10.2); CREATININE, serum 0.64 mg/dL (0.52-1.25); POTASSIUM 4.1 mmol/L (3.4-5.0); TOTAL PROTEIN 7.1 gm/dL (6.4-8.2)
[2017-06-22 16:04] VITALS: TEMP 99.3
[2017-06-23 09:34] LABS: BASO # 0.1 (0.0-0.2); BASO % 0.5 % (0.0-2.0); EOS # 0.5 (0.0-0.7); GRAN # 5.1 (1.4-6.5); HEMATOCRIT 40.4 % (37.0-47.0); LYMPH # 3.7 (1.2-3.4); LYMPH % 37.5 % (20.0-51.0); MEAN CELL VOLUME 86 fl (80.0-100.0); MEAN CORPUSCULAR HEMOGLOBIN 28 pg (27.0-31.0); MEAN CORPUSCULAR HGB CONC 32 g/dl (33.0-37.0); MEAN PLATELET VOLUME 8.9 fl (7.4-10.4); MONO # 0.6 (0.1-0.6); MONO % 5.6 % (1.7-9.3); PLATELET COUNT 336 K/mm3 (130-400); RED BLOOD COUNT 4.69 M/mm3 (4.10-5.30); REDCELL DISTRIBUTION WIDTH-CV 14.7 % (11.5-14.5)
[2017-06-23 09:43] LABS: ALBUMIN 3.7 gm/dL (3.5-5.0); BILIRUBIN,TOTAL 0.2 mg/dL (0.0-1.0); CALCIUM 9.3 mg/dL (8.4-10.2); CREATININE, serum 0.74 mg/dL (0.52-1.25); POTASSIUM 4.4 mmol/L (3.4-5.0); TOTAL PROTEIN 6.7 gm/dL (6.4-8.2)
[2017-06-23 17:49] VITALS: PULSE 128
[2017-06-23 19:50] VITALS: BP 109/74
== END 2017-06-23 19:52 | disposition home or self-care (01) ==
LOC: COL.ER 00:20
PROVIDERS: Emergency Medicine; Family Medicine
DX: T14.91XA Suicide attempt, initial encounter (principal); T18.2XXA Foreign body in stomach, initial encounter; F32.9 Major depressive disorder, single episode, unspecified; I10 Essential (primary) hypertension; F20.9 Schizophrenia, unspecified; X83.8XXA Intentional self-harm by other specified means, initial encounter

== ENCOUNTER 2017-07-22 00:58 | Outpatient (CLI) | payer MEDICAID ==
[~2017-07-22 00:58] MED LIST changes: -ATARAX 25MG25 MG/TAB PO; -CARDIZEM 30MG T30 MG
[2017-07-22] MEDS ORDERED: CARDIZEM 30MG T30 MG (05:40)
[2017-07-22] MEDS ORDERED: DESYREL 100MG100 MG PO (23:20)
[2017-07-27] MEDS ORDERED: FLEXERIL 1010 MG/TAB PO (03:35)
== END 2017-07-22 04:47 | disposition home or self-care (01) ==
LOC: LDRO 00:58
DX: Z04.41 Encounter for examination and observation following alleged adult rape (principal)

== ENCOUNTER 2017-07-22 05:06 | Emergency (ER) | payer MEDICAID ==
[~2017-07-22] VITALS: Ht 160 cm; Wt 116.4 kg
[2017-07-22 05:25] VITALS: BP 129/84; TEMP 97.2
[2017-07-22] MEDS ORDERED: CARDIZEM 30MG T30 MG (05:40)
[2017-07-22 06:26] VITALS: PULSE 120
[2017-07-22] MEDS ORDERED: DESYREL 100MG100 MG PO (23:20)
== END 2017-07-22 06:26 | disposition home or self-care (01) ==
LOC: COL.ER 05:06
DX: S10.93XA Contusion of unspecified part of neck, initial encounter (principal); J45.909 Unspecified asthma, uncomplicated; F29 Unspecified psychosis not due to a substance or known physiological condition; F17.210 Nicotine dependence, cigarettes, uncomplicated; Y04.8XXA Assault by other bodily force, initial encounter; Y92.039 Unspecified place in apartment as the place of occurrence of the external cause

== ENCOUNTER 2017-07-22 21:09 | Emergency (ER) | payer MEDICAID ==
[~2017-07-22] VITALS: Ht 160 cm; Wt 116.4 kg
[~2017-07-22 21:09] MED LIST changes: +CARDIZEM 30MG T30 MG
[2017-07-22 21:11] VITALS: BP 123/66; TEMP 98.8
[2017-07-22] MEDS ORDERED: DESYREL 100MG100 MG PO (23:20)
[2017-07-22 23:39] VITALS: PULSE 87
== END 2017-07-22 23:39 | disposition home or self-care (01) ==
LOC: COL.ER 21:09
DX: F43.0 Acute stress reaction (principal)
CPT/HCPCS: J1885

== ENCOUNTER → 2017-07-22 | Outpatient (REF) ==
[~2017-07-22] MED LIST changes: +ATARAX 25MG25 MG/TAB PO; +CARDIZEM 30MG T30 MG; +FLAGYL500 MG PO; +SEROQUEL 2525 MG/TAB PO
== END ==
LOC: LDRO 01:07
DX: Z04.41 Encounter for examination and observation following alleged adult rape (principal)

== ENCOUNTER 2017-07-24 14:28 | Emergency (ER) | payer MEDICAID ==
[~2017-07-24] VITALS: Ht 160 cm; Wt 116.4 kg
[2017-07-24 14:31] VITALS: TEMP 99.1
[2017-07-24 15:29] LABS: BASO # 0.1 (0.0-0.2); BASO % 0.5 % (0.0-2.0); EOS # 0.5 (0.0-0.7); EOS % 4.5 % (0-4.0); GRAN # 6.9 (1.4-6.5); HEMATOCRIT 40.5 % (37.0-47.0); HEMOGLOBIN 13.1 g/dl (12.5-16.0); LYMPH # 3.5 (1.2-3.4); LYMPH % 30.2 % (20.0-51.0); MEAN CELL VOLUME 86 fl (80.0-100.0); MEAN CORPUSCULAR HEMOGLOBIN 28 pg (27.0-31.0); MEAN CORPUSCULAR HGB CONC 32 g/dl (33.0-37.0); MEAN PLATELET VOLUME 9.1 fl (7.4-10.4); MONO # 0.5 (0.1-0.6); MONO % 4.5 % (1.7-9.3); PLATELET COUNT 348 K/mm3 (130-400); RED BLOOD COUNT 4.73 M/mm3 (4.10-5.30); REDCELL DISTRIBUTION WIDTH-CV 14.9 % (11.5-14.5)
[2017-07-24 15:36] LABS: ALANINE AMINOTRANSFERASE 32 U/L (9-52); ALKALINE PHOSPHATASE 91 U/L (50-136); ANION GAP 9 mmol/L (7-16); AST,SGOT 25 U/L (15-37); BILIRUBIN,TOTAL 0.2 mg/dL (0.0-1.0); BLOOD UREA NITROGEN 8 mg/dL (7-17); CALCIUM 9.4 mg/dL (8.4-10.2); CARBON DIOXIDE 28 mmol/L (22-30); CHLORIDE 108 mmol/L (98-107); CREATININE, serum 0.74 mg/dL (0.52-1.25); GLUCOSE 101 mg/dL (74-106); SODIUM 145 mmol/L (137-145); TOTAL PROTEIN 7.2 gm/dL (6.4-8.2)
[2017-07-24 15:37] LABS: ACETAMINOPHEN < 10 ug/mL (10-30); ALCOHOL(ethanol),MEDICAL < 10 mg/dL; SALICYLATE < 1.0 mg/dL
[2017-07-24 16:05] LABS: COLLECTION METHOD CLEAN CATCH
[2017-07-24 16:35] LABS: AMORPHOUS CRYSTAL Present /uL; MUCOUS Present /lpf; PH 8 (5-8); URINE APPEARANCE Cloudy; URINE BACTERIA None Seen /hpf; URINE BILIRUBIN Negative (NEGATIVE); URINE BLOOD Negative (NEGATIVE); URINE COLOR Yellow; URINE GLUCOSE Negative (NEGATIVE); URINE KETONE Negative (NEGATIVE); URINE LEUKOCYTE ESTERASE Negative (NEGATIVE); URINE NITRATE Negative (NEGATIVE); URINE PROTEIN(semi-quant) Negative (NEGATIVE); URINE UROBILINOGEN Negative (NEGATIVE)
[2017-07-24 16:36] LABS: TRICYCLIC ANTIDEPRESS URINE NEGATIVE
[2017-07-24] MEDS ORDERED: ATARAX 25MG25 MG/TAB PO (17:28)
[2017-07-24] MEDS ORDERED: ATARAX50 MG PO (17:39)
[2017-07-24 17:53] VITALS: BP 122/67; PULSE 94
[2017-07-25] MEDS ORDERED: ATIVAN 0.50.5 MG/TAB PO (22:27)
[2017-07-25] MEDS ORDERED: VISTARIL50 MG PO (22:28)
[2017-07-25] MEDS ORDERED: ASPERCREME1 EACH TP (22:52)
[2017-07-27] MEDS ORDERED: FLEXERIL 1010 MG/TAB PO (03:35)
== END 2017-07-24 18:42 | disposition home or self-care (01) ==
LOC: COL.ER 14:28
PROVIDERS: Emergency Medicine
DX: F41.9 Anxiety disorder, unspecified (principal); R45.851 Suicidal ideations; F31.9 Bipolar disorder, unspecified; F25.9 Schizoaffective disorder, unspecified; Z91.410 Personal history of adult physical and sexual abuse

== ENCOUNTER 2017-07-25 22:24 | Emergency (ER) | payer MEDICAID ==
[~2017-07-25] VITALS: Ht 160 cm; Wt 116.4 kg
[~2017-07-25 22:24] MED LIST changes: +ATARAX 25MG25 MG/TAB PO
[2017-07-25] MEDS ORDERED: ATIVAN 0.50.5 MG/TAB PO (22:27)
[2017-07-25] MEDS ORDERED: VISTARIL50 MG PO (22:28)
[2017-07-25] MEDS ORDERED: ASPERCREME1 EACH TP (22:52)
[2017-07-25 23:14] VITALS: BP 129/78; PULSE 117
[2017-07-26] MEDS ORDERED: FLEXERIL 1010 MG/TAB PO (23:29)
[2017-07-27] MEDS ORDERED: FLEXERIL 1010 MG/TAB PO (03:35)
== END 2017-07-26 00:01 | disposition home or self-care (01) ==
LOC: COL.ER 22:24
DX: S16.1XXA Strain of muscle, fascia and tendon at neck level, initial encounter (principal); F43.10 Post-traumatic stress disorder, unspecified; Y09 Assault by unspecified means

== ENCOUNTER 2017-07-26 20:35 | Emergency (ER) | payer MEDICAID ==
[~2017-07-26] VITALS: Ht 160 cm; Wt 116.4 kg
[~2017-07-26 20:35] MED LIST changes: +ASPERCREME1 EACH TP; +ATIVAN 0.50.5 MG/TAB PO; +VISTARIL50 MG PO
[2017-07-26 20:36] VITALS: TEMP 97.9
[2017-07-26] MEDS ORDERED: FLEXERIL 1010 MG/TAB PO (23:29)
[2017-07-27 00:12] VITALS: BP 100/74; PULSE 98
[2017-07-27] MEDS ORDERED: FLEXERIL 1010 MG/TAB PO (03:35)
== END 2017-07-26 23:45 | disposition home or self-care (01) ==
LOC: COL.ER 20:35
DX: M54.2 Cervicalgia (principal); F25.9 Schizoaffective disorder, unspecified; Y04.8XXA Assault by other bodily force, initial encounter

== ENCOUNTER 2017-07-28 23:49 | Emergency (ER) | payer MEDICAID ==
[~2017-07-28] VITALS: Ht 160 cm; Wt 116.4 kg
[~2017-07-28 23:49] MED LIST changes: +FLEXERIL 1010 MG/TAB PO
[2017-07-28 23:51] VITALS: BP 129/96; TEMP 99
[2017-07-29 02:11] VITALS: PULSE 113
== END 2017-07-29 02:10 | disposition home or self-care (01) ==
LOC: COL.ER 23:49
DX: F60.3 Borderline personality disorder (principal); R45.851 Suicidal ideations; F31.9 Bipolar disorder, unspecified; F17.210 Nicotine dependence, cigarettes, uncomplicated

== ENCOUNTER 2017-08-07 21:43 | Emergency (ER) | payer MEDICAID ==
[~2017-08-07] VITALS: Ht 157.5 cm; Wt 120.9 kg
[2017-08-07 21:46] VITALS: TEMP 99.5
[2017-08-07 21:59] LABS: BASO # 0.1 (0.0-0.2); BASO % 0.7 % (0.0-2.0); EOS # 0.4 (0.0-0.7); EOS % 2.9 % (0-4.0); GRAN # 9.7 (1.4-6.5); GRAN % 64.6 % (42.2-75.2); HEMATOCRIT 40.3 % (37.0-47.0); HEMOGLOBIN 13.6 g/dl (12.5-16.0); LYMPH # 4.1 (1.2-3.4); MEAN CELL VOLUME 84 fl (80.0-100.0); MEAN CORPUSCULAR HEMOGLOBIN 28 pg (27.0-31.0); MEAN CORPUSCULAR HGB CONC 34 g/dl (33.0-37.0); MEAN PLATELET VOLUME 8.8 fl (7.4-10.4); MONO # 0.7 (0.1-0.6); MONO % 4.5 % (1.7-9.3); PLATELET COUNT 347 K/mm3 (130-400); RED BLOOD COUNT 4.81 M/mm3 (4.10-5.30); REDCELL DISTRIBUTION WIDTH-CV 14.4 % (11.5-14.5)
[2017-08-07] MEDS ORDERED: CARDIZEM CD 12120 MG PO (22:08)
[2017-08-07 22:09] LABS: ACETAMINOPHEN < 10 ug/mL (10-30); ALANINE AMINOTRANSFERASE 35 U/L (9-52); ALBUMIN 3.9 gm/dL (3.5-5.0); ALCOHOL(ethanol),MEDICAL < 10 mg/dL; ALKALINE PHOSPHATASE 106 U/L (50-136); ANION GAP 14 mmol/L (7-16); AST,SGOT 23 U/L (15-37); BILIRUBIN,TOTAL 0.2 mg/dL (0.0-1.0); BLOOD UREA NITROGEN 13 mg/dL (7-17); CALCIUM 9.7 mg/dL (8.4-10.2); CARBON DIOXIDE 24 mmol/L (22-30); CHLORIDE 105 mmol/L (98-107); CREATININE, serum 0.68 mg/dL (0.52-1.25); GLUCOSE 145 mg/dL (74-106); POTASSIUM 3.4 mmol/L (3.4-5.0); SALICYLATE < 1.0 mg/dL; SODIUM 144 mmol/L (137-145); TOTAL PROTEIN 7.3 gm/dL (6.4-8.2)
[2017-08-07] MEDS ORDERED: CARDIZEM CD 18180 MG PO (23:21)
[2017-08-07 23:25] VITALS: BP 108/80; PULSE 99
== END 2017-08-07 23:45 | disposition home or self-care (01) ==
LOC: COL.ER 21:43
PROVIDERS: Emergency Medicine
DX: R00.0 Tachycardia, unspecified (principal); R00.2 Palpitations
CPT/HCPCS: J7030

== ENCOUNTER → 2017-08-18 | Outpatient (CLI) | payer MEDICAID ==
[~2017-08-18] MED LIST changes: +CARDIZEM CD 12120 MG PO; +CARDIZEM CD 18180 MG PO
== END ==
LOC: COL.LAB 16:17
DX: J02.9 Acute pharyngitis, unspecified (principal)

== ENCOUNTER 2017-08-19 16:09 | Emergency (ER) | payer MEDICAID ==
[~2017-08-19] VITALS: Ht 160 cm; Wt 119.1 kg
[2017-08-19 16:41] LABS: BASO # 0.1 (0.0-0.2); BASO % 0.5 % (0.0-2.0); EOS # 0.4 (0.0-0.7); GRAN # 8.3 (1.4-6.5); GRAN % 64.5 % (42.2-75.2); HEMATOCRIT 43.9 % (37.0-47.0); HEMOGLOBIN 14.5 g/dl (12.5-16.0); LYMPH # 3.6 (1.2-3.4); LYMPH % 28.1 % (20.0-51.0); MEAN CELL VOLUME 85 fl (80.0-100.0); MEAN CORPUSCULAR HEMOGLOBIN 28 pg (27.0-31.0); MEAN CORPUSCULAR HGB CONC 33 g/dl (33.0-37.0); MONO # 0.5 (0.1-0.6); MONO % 3.7 % (1.7-9.3); PLATELET COUNT 364 K/mm3 (130-400); RED BLOOD COUNT 5.16 M/mm3 (4.10-5.30)
[2017-08-19 16:44] VITALS: TEMP 98.6
[2017-08-19 16:51] LABS: ALANINE AMINOTRANSFERASE 37 U/L (9-52); ALBUMIN 4.2 gm/dL (3.5-5.0); ALKALINE PHOSPHATASE 112 U/L (50-136); ANION GAP 14 mmol/L (7-16); AST,SGOT 23 U/L (15-37); BILIRUBIN,TOTAL 0.3 mg/dL (0.0-1.0); BLOOD UREA NITROGEN 8 mg/dL (7-17); CALCIUM 9.2 mg/dL (8.4-10.2); CARBON DIOXIDE 24 mmol/L (22-30); CHLORIDE 103 mmol/L (98-107); CREATININE, serum 0.56 mg/dL (0.52-1.25); GLUCOSE 102 mg/dL (74-106); POTASSIUM 3.7 mmol/L (3.4-5.0); SODIUM 141 mmol/L (137-145); TOTAL PROTEIN 8.4 gm/dL (6.4-8.2)
[2017-08-19 16:53] LABS: ACETAMINOPHEN < 10 ug/mL (10-30); ALCOHOL(ethanol),MEDICAL < 10 mg/dL; SALICYLATE < 1.0 mg/dL
[2017-08-19 17:11] LABS: TRICYCLIC ANTIDEPRESS URINE NEGATIVE
[2017-08-19 19:44] VITALS: BP 135/69
[2017-08-19 21:01] VITALS: PULSE 110
== END 2017-08-19 21:10 | disposition home or self-care (01) ==
LOC: COL.ER 16:09
PROVIDERS: Emergency Medicine
DX: R45.851 Suicidal ideations (principal); F32.9 Major depressive disorder, single episode, unspecified; I10 Essential (primary) hypertension

== ENCOUNTER → 2017-08-19 | Outpatient (CLI) | payer MEDICAID | LOC: COL.LAB 10:21 | DX: J02.9 Acute pharyngitis, unspecified (principal) ==

== ENCOUNTER 2017-08-20 16:54 | Emergency (ER) | payer MEDICAID ==
[~2017-08-20] VITALS: Ht 157.5 cm; Wt 119.1 kg
[2017-08-20 17:23] VITALS: BP 133/87; TEMP 98.8
[2017-08-20 17:31] LABS: BASO # 0.1 (0.0-0.2); BASO % 0.5 % (0.0-2.0); EOS # 0.5 (0.0-0.7); EOS % 4.8 % (0-4.0); GRAN # 5.3 (1.4-6.5); GRAN % 57.4 % (42.2-75.2); HEMATOCRIT 41.4 % (37.0-47.0); HEMOGLOBIN 13.9 g/dl (12.5-16.0); LYMPH # 3.1 (1.2-3.4); LYMPH % 32.7 % (20.0-51.0); MEAN CELL VOLUME 84 fl (80.0-100.0); MEAN CORPUSCULAR HEMOGLOBIN 28 pg (27.0-31.0); MEAN CORPUSCULAR HGB CONC 34 g/dl (33.0-37.0); MEAN PLATELET VOLUME 8.9 fl (7.4-10.4); MONO # 0.4 (0.1-0.6); MONO % 4.5 % (1.7-9.3); PLATELET COUNT 364 K/mm3 (130-400); RED BLOOD COUNT 4.95 M/mm3 (4.10-5.30)
[2017-08-20 17:41] LABS: ALANINE AMINOTRANSFERASE 32 U/L (9-52); ALBUMIN 3.9 gm/dL (3.5-5.0); ALKALINE PHOSPHATASE 109 U/L (50-136); ANION GAP 13 mmol/L (7-16); AST,SGOT 23 U/L (15-37); BILIRUBIN,TOTAL 0.4 mg/dL (0.0-1.0); BLOOD UREA NITROGEN 7 mg/dL (7-17); CALCIUM 9.3 mg/dL (8.4-10.2); CARBON DIOXIDE 25 mmol/L (22-30); CHLORIDE 104 mmol/L (98-107); GLUCOSE 120 mg/dL (74-106); POTASSIUM 3.6 mmol/L (3.4-5.0); SODIUM 142 mmol/L (137-145)
[2017-08-20 17:50] LABS: ACETAMINOPHEN < 10 ug/mL (10-30); ALCOHOL(ethanol),MEDICAL < 10 mg/dL; SALICYLATE < 1.0 mg/dL
[2017-08-20 18:06] LABS: COLLECTION METHOD CLEAN CATCH
[2017-08-20 18:18] LABS: MUCOUS Present /lpf; PH 5 (5-8); SQUAMOUS EPITHELIAL None Seen /hpf; URINE APPEARANCE Clear; URINE BACTERIA None Seen /hpf; URINE BILIRUBIN Negative (NEGATIVE); URINE BLOOD 2+ (NEGATIVE); URINE COLOR Yellow; URINE GLUCOSE Negative (NEGATIVE); URINE KETONE Negative (NEGATIVE); URINE LEUKOCYTE ESTERASE Negative (NEGATIVE); URINE NITRATE Negative (NEGATIVE); URINE PROTEIN(semi-quant) Negative (NEGATIVE); URINE RBC 0-2 /hpf; URINE UROBILINOGEN Negative (NEGATIVE)
[2017-08-20 18:23] LABS: TRICYCLIC ANTIDEPRESS URINE NEGATIVE
[2017-08-20 22:54] VITALS: PULSE 96
== END 2017-08-20 22:56 ==
LOC: COL.ER 16:54
PROVIDERS: Emergency Medicine
DX: F32.9 Major depressive disorder, single episode, unspecified (principal); R45.851 Suicidal ideations

== ENCOUNTER 2017-08-26 19:02 | Emergency (ER) | payer MEDICAID ==
[~2017-08-26] VITALS: Ht 157.5 cm; Wt 118.2 kg
[2017-08-26 19:10] VITALS: BP 145/73; TEMP 98.8
[2017-08-26 20:25] LABS: BASO # 0.1 (0.0-0.2); BASO % 0.5 % (0.0-2.0); EOS # 0.5 (0.0-0.7); EOS % 4.5 % (0-4.0); GRAN # 5.9 (1.4-6.5); GRAN % 51.4 % (42.2-75.2); HEMATOCRIT 40.6 % (37.0-47.0); HEMOGLOBIN 13.6 g/dl (12.5-16.0); LYMPH # 4.2 (1.2-3.4); MEAN CELL VOLUME 84 fl (80.0-100.0); MEAN CORPUSCULAR HEMOGLOBIN 28 pg (27.0-31.0); MEAN CORPUSCULAR HGB CONC 34 g/dl (33.0-37.0); MEAN PLATELET VOLUME 8.8 fl (7.4-10.4); MONO # 0.7 (0.1-0.6); MONO % 6.3 % (1.7-9.3); PLATELET COUNT 371 K/mm3 (130-400); RED BLOOD COUNT 4.85 M/mm3 (4.10-5.30); REDCELL DISTRIBUTION WIDTH-CV 13.7 % (11.5-14.5)
[2017-08-26 20:38] LABS: ALBUMIN 3.8 gm/dL (3.5-5.0); BILIRUBIN,TOTAL 0.2 mg/dL (0.0-1.0); C-REACTIVE PROTEIN 1.3 mg/dL (0.0-0.9); CALCIUM 9.3 mg/dL (8.4-10.2); CREATININE, serum 0.75 mg/dL (0.52-1.25); POTASSIUM 3.8 mmol/L (3.4-5.0); TOTAL PROTEIN 7.7 gm/dL (6.4-8.2)
[2017-08-26 21:15] VITALS: PULSE 108
== END 2017-08-26 21:16 | disposition home or self-care (01) ==
LOC: COL.ER 19:02
PROVIDERS: Nurse Practitioner
DX: M25.561 Pain in right knee (principal); R10.9 Unspecified abdominal pain; F31.9 Bipolar disorder, unspecified; F41.9 Anxiety disorder, unspecified; F43.10 Post-traumatic stress disorder, unspecified; F60.3 Borderline personality disorder; E05.00 Thyrotoxicosis with diffuse goiter without thyrotoxic crisis or storm; F17.210 Nicotine dependence, cigarettes, uncomplicated; Z90.49 Acquired absence of other specified parts of digestive tract

== ENCOUNTER → 2017-08-26 | Outpatient (CLI) | payer MEDICAID | LOC: COL.LAB 15:34 | DX: R30.0 Dysuria (principal) ==

== ENCOUNTER → 2017-08-28 | Outpatient (CLI) | payer MEDICAID ==
[2017-08-28 16:28] LABS: BASO # 0.1 (0.0-0.2); BASO % 0.7 % (0.0-2.0); EOS # 0.4 (0.0-0.7); EOS % 4.4 % (0-4.0); GRAN # 5.3 (1.4-6.5); GRAN % 53.4 % (42.2-75.2); HEMATOCRIT 42.9 % (37.0-47.0); HEMOGLOBIN 14.1 g/dl (12.5-16.0); LYMPH # 3.4 (1.2-3.4); LYMPH % 34.9 % (20.0-51.0); MEAN CELL VOLUME 85 fl (80.0-100.0); MEAN CORPUSCULAR HEMOGLOBIN 28 pg (27.0-31.0); MEAN CORPUSCULAR HGB CONC 33 g/dl (33.0-37.0); MEAN PLATELET VOLUME 9.4 fl (7.4-10.4); MONO # 0.6 (0.1-0.6); MONO % 6.4 % (1.7-9.3); PLATELET COUNT 381 K/mm3 (130-400); RED BLOOD COUNT 5.03 M/mm3 (4.10-5.30); REDCELL DISTRIBUTION WIDTH-CV 13.8 % (11.5-14.5)
[2017-08-28 16:35] LABS: ALBUMIN 3.8 gm/dL (3.5-5.0); BILIRUBIN,TOTAL 0.4 mg/dL (0.0-1.0); CALCIUM 9.2 mg/dL (8.4-10.2); CREATININE, serum 0.57 mg/dL (0.52-1.25); POTASSIUM 4.1 mmol/L (3.4-5.0); TOTAL PROTEIN 7.6 gm/dL (6.4-8.2)
== END ==
LOC: COL.LAB 10:40
PROVIDERS: Family Medicine
DX: N89.8 Other specified noninflammatory disorders of vagina (principal); Z01.818 Encounter for other preprocedural examination; M25.562 Pain in left knee

== ENCOUNTER → 2017-09-01 | Outpatient (CLI) | payer MEDICAID | LOC: COL.LAB 15:16 | PROVIDERS: Family Medicine | DX: Z01.818 Encounter for other preprocedural examination (principal); M25.562 Pain in left knee; R74.0 Nonspecific elevation of levels of transaminase and lactic acid dehydrogenase [LDH]; Z88.7 Allergy status to serum and vaccine; Z88.8 Allergy status to other drugs, medicaments and biological substances ==

== ENCOUNTER 2017-09-04 16:49 | Emergency (ER) | payer MEDICAID ==
[~2017-09-04] VITALS: Ht 157.5 cm; Wt 118.2 kg
[2017-09-04 16:50] VITALS: BP 128/69; TEMP 96.9
[2017-09-04 17:57] VITALS: PULSE 100
[2017-09-05] MEDS ORDERED: CYMBALTA 30MG30 MG PO (08:51)
[2017-09-05] MEDS ORDERED: VRAYLAR6 MG PO (08:51)
[2017-09-05] MEDS ORDERED: CARDIZEM120 MG PO (08:51)
== END 2017-09-04 17:56 | disposition home or self-care (01) ==
LOC: COL.ER 16:49
DX: F41.9 Anxiety disorder, unspecified (principal); M79.605 Pain in left leg; M79.604 Pain in right leg

== ENCOUNTER 2017-09-05 07:31 | Day surgery (SDC) | payer MEDICAID ==
[~2017-09-05] VITALS: Ht 157.5 cm; Wt 119.8 kg
[2017-09-05 08:48] VITALS: BP 111/62; PULSE 93; TEMP 98.5
[2017-09-05] MEDS ORDERED: CYMBALTA 30MG30 MG PO (08:51)
[2017-09-05] MEDS ORDERED: VRAYLAR6 MG PO (08:51)
[2017-09-05] MEDS ORDERED: CARDIZEM120 MG PO (08:51)
[2017-09-05 14:50] VITALS: BP 127/91; PULSE 82; TEMP 99
[2017-09-05 15:05] VITALS: BP 125/76; PULSE 94
[2017-09-05 15:20] VITALS: BP 115/67; PULSE 84
[2017-09-05 15:50] VITALS: BP 113/62; PULSE 80
== END 2017-09-05 15:55 | disposition home or self-care (01) ==
LOC: SDCO 07:31
DX: M22.42 Chondromalacia patellae, left knee (principal); M79.4 Hypertrophy of (infrapatellar) fat pad; M25.862 Other specified joint disorders, left knee; F17.210 Nicotine dependence, cigarettes, uncomplicated; F41.9 Anxiety disorder, unspecified; F32.9 Major depressive disorder, single episode, unspecified; J45.909 Unspecified asthma, uncomplicated
CPT/HCPCS: J0690; J1100; J1170; J1885; J2405; J2704; J3010; J7120

== ENCOUNTER 2017-09-13 19:24 | Emergency (ER) | payer MEDICAID ==
[~2017-09-13] VITALS: Ht 157.5 cm; Wt 118.2 kg
[~2017-09-13 19:24] MED LIST changes: +CARDIZEM120 MG PO; +CYMBALTA 30MG30 MG PO; +VRAYLAR6 MG PO
[2017-09-13 19:27] VITALS: TEMP 98.1
[2017-09-13 20:22] LABS: BASO # 0.1 (0.0-0.2); BASO % 0.5 % (0.0-2.0); EOS # 0.6 (0.0-0.7); EOS % 3.7 % (0-4.0); GRAN # 10.1 (1.4-6.5); GRAN % 61.5 % (42.2-75.2); HEMATOCRIT 40.1 % (37.0-47.0); HEMOGLOBIN 13.2 g/dl (12.5-16.0); LYMPH # 4.4 (1.2-3.4); LYMPH % 26.8 % (20.0-51.0); MEAN CELL VOLUME 86 fl (80.0-100.0); MEAN CORPUSCULAR HEMOGLOBIN 28 pg (27.0-31.0); MEAN CORPUSCULAR HGB CONC 33 g/dl (33.0-37.0); MONO # 1.2 (0.1-0.6); MONO % 7.1 % (1.7-9.3); PLATELET COUNT 358 K/mm3 (130-400); RED BLOOD COUNT 4.67 M/mm3 (4.10-5.30); REDCELL DISTRIBUTION WIDTH-CV 14.7 % (11.5-14.5)
[2017-09-13 20:33] LABS: ALANINE AMINOTRANSFERASE 101 U/L (9-52); ALBUMIN 3.7 gm/dL (3.5-5.0); ALKALINE PHOSPHATASE 99 U/L (50-136); ANION GAP 11 mmol/L (7-16); AST,SGOT 37 U/L (15-37); BILIRUBIN,TOTAL 0.3 mg/dL (0.0-1.0); BLOOD UREA NITROGEN 12 mg/dL (7-17); C-REACTIVE PROTEIN 0.8 mg/dL (0.0-0.9); CALCIUM 8.9 mg/dL (8.4-10.2); CARBON DIOXIDE 25 mmol/L (22-30); CHLORIDE 107 mmol/L (98-107); CREATININE, serum 0.72 mg/dL (0.52-1.25); GLUCOSE 94 mg/dL (74-106); SODIUM 143 mmol/L (137-145); TOTAL PROTEIN 7.4 gm/dL (6.4-8.2)
[2017-09-13 20:41] LABS: TROPONIN-I < 0.012 ng/mL (0.000-0.034)
[2017-09-13 22:52] VITALS: BP 122/79; PULSE 97
== END 2017-09-13 23:20 | disposition home or self-care (01) ==
LOC: COL.ER 19:24
PROVIDERS: Emergency Medicine
DX: G89.18 Other acute postprocedural pain (principal); R07.9 Chest pain, unspecified; M25.562 Pain in left knee; I10 Essential (primary) hypertension
CPT/HCPCS: J1170; J2405; J7030

== ENCOUNTER 2017-09-14 18:41 | Emergency (ER) | payer MEDICAID ==
[~2017-09-14] VITALS: Ht 157.5 cm; Wt 118.2 kg
[2017-09-14 18:46] VITALS: TEMP 98.8
[2017-09-14 19:48] LABS: BASO # 0.1 (0.0-0.2); BASO % 0.5 % (0.0-2.0); EOS # 0.4 (0.0-0.7); EOS % 3.6 % (0-4.0); GRAN # 5.8 (1.4-6.5); GRAN % 53.8 % (42.2-75.2); HEMATOCRIT 39.6 % (37.0-47.0); HEMOGLOBIN 13.2 g/dl (12.5-16.0); LYMPH # 3.7 (1.2-3.4); LYMPH % 33.8 % (20.0-51.0); MEAN CELL VOLUME 85 fl (80.0-100.0); MEAN CORPUSCULAR HEMOGLOBIN 28 pg (27.0-31.0); MEAN CORPUSCULAR HGB CONC 33 g/dl (33.0-37.0); MEAN PLATELET VOLUME 8.9 fl (7.4-10.4); MONO # 0.8 (0.1-0.6); MONO % 7.8 % (1.7-9.3); PLATELET COUNT 328 K/mm3 (130-400); RED BLOOD COUNT 4.66 M/mm3 (4.10-5.30); REDCELL DISTRIBUTION WIDTH-CV 14.6 % (11.5-14.5)
[2017-09-14 20:03] LABS: ACETAMINOPHEN < 10 ug/mL (10-30); ALANINE AMINOTRANSFERASE 75 U/L (9-52); ALBUMIN 3.7 gm/dL (3.5-5.0); ALCOHOL(ethanol),MEDICAL < 10 mg/dL; ALKALINE PHOSPHATASE 102 U/L (50-136); ANION GAP 11 mmol/L (7-16); AST,SGOT 27 U/L (15-37); BILIRUBIN,TOTAL 0.3 mg/dL (0.0-1.0); BLOOD UREA NITROGEN 9 mg/dL (7-17); C-REACTIVE PROTEIN 1.4 mg/dL (0.0-0.9); CALCIUM 8.9 mg/dL (8.4-10.2); CARBON DIOXIDE 24 mmol/L (22-30); CHLORIDE 106 mmol/L (98-107); CREATININE, serum 0.55 mg/dL (0.52-1.25); GLUCOSE 78 mg/dL (74-106); POTASSIUM 3.9 mmol/L (3.4-5.0); SALICYLATE < 1.0 mg/dL; SODIUM 142 mmol/L (137-145); TOTAL PROTEIN 7.3 gm/dL (6.4-8.2)
[2017-09-14 20:49] LABS: COLLECTION METHOD CLEAN CATCH
[2017-09-14 20:54] LABS: MUCOUS Present /lpf; PH 5 (5-8); URINE APPEARANCE Hazy; URINE BACTERIA Rare /hpf; URINE BILIRUBIN Negative (NEGATIVE); URINE BLOOD Negative (NEGATIVE); URINE COLOR Yellow; URINE GLUCOSE Negative (NEGATIVE); URINE KETONE Negative (NEGATIVE); URINE LEUKOCYTE ESTERASE Negative (NEGATIVE); URINE NITRATE Negative (NEGATIVE); URINE PROTEIN(semi-quant) Negative (NEGATIVE); URINE RBC 0-2 /hpf
[2017-09-14 21:02] LABS: TRICYCLIC ANTIDEPRESS URINE NEGATIVE
[2017-09-15 09:31] VITALS: BP 97/59; PULSE 104
== END 2017-09-15 09:35 | disposition home or self-care (01) ==
LOC: COL.ER 18:41
PROVIDERS: Emergency Medicine
DX: R45.851 Suicidal ideations (principal); G89.18 Other acute postprocedural pain; M25.562 Pain in left knee

== ENCOUNTER 2017-09-17 16:05 | Emergency (ER) | payer MEDICAID ==
[~2017-09-17] VITALS: Ht 157.5 cm; Wt 118.2 kg
[2017-09-17 16:05] VITALS: TEMP 98.9
[2017-09-17] MEDS ORDERED: ALBUTEROL1.25 MG/3 IH (16:09)
[2017-09-17 16:24] LABS: BASO # 0.1 (0.0-0.2); BASO % 0.5 % (0.0-2.0); EOS # 0.3 (0.0-0.7); EOS % 2.9 % (0-4.0); GRAN # 7.2 (1.4-6.5); GRAN % 67.1 % (42.2-75.2); HEMATOCRIT 38.8 % (37.0-47.0); HEMOGLOBIN 13.2 g/dl (12.5-16.0); LYMPH # 2.5 (1.2-3.4); MEAN CELL VOLUME 84 fl (80.0-100.0); MEAN CORPUSCULAR HEMOGLOBIN 29 pg (27.0-31.0); MEAN CORPUSCULAR HGB CONC 34 g/dl (33.0-37.0); MEAN PLATELET VOLUME 8.8 fl (7.4-10.4); MONO # 0.7 (0.1-0.6); MONO % 6.2 % (1.7-9.3); PLATELET COUNT 351 K/mm3 (130-400); RED BLOOD COUNT 4.61 M/mm3 (4.10-5.30); REDCELL DISTRIBUTION WIDTH-CV 14.4 % (11.5-14.5)
[2017-09-17 16:32] LABS: ALBUMIN 3.8 gm/dL (3.5-5.0); BILIRUBIN,TOTAL 0.3 mg/dL (0.0-1.0); CALCIUM 9.7 mg/dL (8.4-10.2); CREATININE, serum 0.6 mg/dL (0.52-1.25); POTASSIUM 3.7 mmol/L (3.4-5.0); TOTAL PROTEIN 7.7 gm/dL (6.4-8.2)
[2017-09-17] MEDS ORDERED: ZITHROMAX Z PA250 MG PO (17:03)
[2017-09-17 17:12] VITALS: BP 131/84; PULSE 112
== END 2017-09-17 17:14 | disposition home or self-care (01) ==
LOC: COL.ER 16:05
PROVIDERS: Family Medicine
DX: J20.9 Acute bronchitis, unspecified (principal); F32.9 Major depressive disorder, single episode, unspecified; F41.9 Anxiety disorder, unspecified; Z87.891 Personal history of nicotine dependence
CPT/HCPCS: J7030; J7512

== ENCOUNTER 2017-09-21 04:16 | Emergency (ER) | payer MEDICAID ==
[~2017-09-21] VITALS: Ht 157.5 cm; Wt 118.2 kg
[~2017-09-21 04:16] MED LIST changes: +ALBUTEROL1.25 MG/3 IH
[2017-09-21 04:25] VITALS: PULSE 113; TEMP 97.6
[2017-09-21] MEDS ORDERED: DESYREL 100MG100 MG PO (04:41)
[2017-09-21] MEDS ORDERED: NORCO 325 MG-51 TAB PO (04:42)
[2017-09-21] MEDS ORDERED: NAPROSYN500 MG PO (04:44)
[2017-09-21 04:46] LABS: BASO # 0.1 (0.0-0.2); BASO % 0.5 % (0.0-2.0); EOS # 0.6 (0.0-0.7); GRAN # 7.7 (1.4-6.5); GRAN % 60.2 % (42.2-75.2); HEMATOCRIT 40.1 % (37.0-47.0); HEMOGLOBIN 13.3 g/dl (12.5-16.0); LYMPH # 3.6 (1.2-3.4); LYMPH % 27.7 % (20.0-51.0); MEAN CELL VOLUME 85 fl (80.0-100.0); MEAN CORPUSCULAR HEMOGLOBIN 28 pg (27.0-31.0); MEAN CORPUSCULAR HGB CONC 33 g/dl (33.0-37.0); MEAN PLATELET VOLUME 8.8 fl (7.4-10.4); MONO # 0.8 (0.1-0.6); MONO % 6.2 % (1.7-9.3); PLATELET COUNT 375 K/mm3 (130-400); RED BLOOD COUNT 4.71 M/mm3 (4.10-5.30); REDCELL DISTRIBUTION WIDTH-CV 14.2 % (11.5-14.5)
[2017-09-21 04:47] LABS: COLLECTION METHOD CLEAN CATCH
[2017-09-21 04:54] LABS: MUCOUS Present /lpf; PH 5 (5-8); SQUAMOUS EPITHELIAL 0-2 /hpf; URINE APPEARANCE Clear; URINE BACTERIA None Seen /hpf; URINE BILIRUBIN Negative (NEGATIVE); URINE BLOOD 1+ (NEGATIVE); URINE COLOR Yellow; URINE GLUCOSE Negative (NEGATIVE); URINE KETONE Negative (NEGATIVE); URINE LEUKOCYTE ESTERASE Negative (NEGATIVE); URINE NITRATE Negative (NEGATIVE); URINE PROTEIN(semi-quant) Negative (NEGATIVE); URINE RBC 0-2 /hpf; URINE UROBILINOGEN Negative (NEGATIVE)
[2017-09-21 04:59] LABS: ALANINE AMINOTRANSFERASE 35 U/L (9-52); ALKALINE PHOSPHATASE 109 U/L (50-136); ANION GAP 14 mmol/L (7-16); AST,SGOT 23 U/L (15-37); BILIRUBIN,TOTAL 0.3 mg/dL (0.0-1.0); BLOOD UREA NITROGEN 15 mg/dL (7-17); CARBON DIOXIDE 24 mmol/L (22-30); CHLORIDE 105 mmol/L (98-107); CREATININE, serum 0.61 mg/dL (0.52-1.25); GLUCOSE 127 mg/dL (74-106); POTASSIUM 3.8 mmol/L (3.4-5.0); SODIUM 143 mmol/L (137-145); TOTAL PROTEIN 7.7 gm/dL (6.4-8.2)
[2017-09-21 05:00] LABS: ACETAMINOPHEN < 10 ug/mL (10-30); ALCOHOL(ethanol),MEDICAL < 10 mg/dL; SALICYLATE < 1.0 mg/dL
[2017-09-21 05:20] LABS: TRICYCLIC ANTIDEPRESS URINE NEGATIVE
[2017-09-21 06:36] VITALS: BP 132/89
== END 2017-09-21 06:36 | disposition home or self-care (01) ==
LOC: COL.ER 04:16
PROVIDERS: Emergency Medicine
DX: F32.9 Major depressive disorder, single episode, unspecified (principal); R45.851 Suicidal ideations; F41.9 Anxiety disorder, unspecified; F17.210 Nicotine dependence, cigarettes, uncomplicated; Z98.890 Other specified postprocedural states

== ENCOUNTER 2017-09-23 18:21 | Emergency (ER) | payer MEDICAID ==
[~2017-09-23] VITALS: Ht 157.5 cm; Wt 118.2 kg
[~2017-09-23 18:21] MED LIST changes: +NAPROSYN500 MG PO; +NORCO 325 MG-51 TAB PO
[2017-09-23 18:23] VITALS: BP 131/109; TEMP 99
[2017-09-23 18:36] LABS: BASO # 0.1 (0.0-0.2); BASO % 0.5 % (0.0-2.0); EOS # 0.6 (0.0-0.7); EOS % 4.7 % (0-4.0); GRAN % 54.1 % (42.2-75.2); HEMATOCRIT 40.2 % (37.0-47.0); HEMOGLOBIN 13.3 g/dl (12.5-16.0); LYMPH # 4.5 (1.2-3.4); LYMPH % 34.5 % (20.0-51.0); MEAN CELL VOLUME 87 fl (80.0-100.0); MEAN CORPUSCULAR HEMOGLOBIN 29 pg (27.0-31.0); MEAN CORPUSCULAR HGB CONC 33 g/dl (33.0-37.0); MONO # 0.8 (0.1-0.6); MONO % 5.9 % (1.7-9.3); PLATELET COUNT 427 K/mm3 (130-400); RED BLOOD COUNT 4.65 M/mm3 (4.10-5.30); REDCELL DISTRIBUTION WIDTH-CV 14.3 % (11.5-14.5)
[2017-09-23 18:51] LABS: ALANINE AMINOTRANSFERASE 32 U/L (9-52); ALBUMIN 3.9 gm/dL (3.5-5.0); ALCOHOL(ethanol),MEDICAL < 10 mg/dL; ALKALINE PHOSPHATASE 108 U/L (50-136); ANION GAP 13 mmol/L (7-16); AST,SGOT 22 U/L (15-37); BILIRUBIN,TOTAL 0.2 mg/dL (0.0-1.0); BLOOD UREA NITROGEN 14 mg/dL (7-17); CALCIUM 9.4 mg/dL (8.4-10.2); CARBON DIOXIDE 23 mmol/L (22-30); CHLORIDE 105 mmol/L (98-107); CREATININE, serum 0.62 mg/dL (0.52-1.25); GLUCOSE 94 mg/dL (74-106); POTASSIUM 3.9 mmol/L (3.4-5.0); SODIUM 140 mmol/L (137-145); TOTAL PROTEIN 7.8 gm/dL (6.4-8.2)
[2017-09-23 21:21] VITALS: PULSE 103
== END 2017-09-23 21:20 | disposition home or self-care (01) ==
LOC: COL.ER 18:21
PROVIDERS: Emergency Medicine
DX: R45.851 Suicidal ideations (principal); F32.9 Major depressive disorder, single episode, unspecified; F60.9 Personality disorder, unspecified

== ENCOUNTER 2017-09-24 15:55 | Outpatient (RCR) | payer MEDICAID ==
[2017-10-05] MEDS ORDERED: NORCO 325 MG-7.1 TAB PO (21:50)
[2017-10-08] MEDS ORDERED: DOXYCYCLINE 10100 MG PO (15:29)
[2017-10-08] MEDS ORDERED: FLAGYL500 MG PO (15:29)
[2017-10-08] MEDS ORDERED: ZOFRAN ODT4 MG PO (23:20)
[2017-10-29] MEDS ORDERED: ALBUTEROL0.83 MG/ML IH (20:05)
[2017-10-29] MEDS ORDERED: ABILIFY (20:06)
[2017-11-05] MEDS ORDERED: PROAIR HFA0.09 MG/AC IH (19:57)
[2017-11-13] MEDS ORDERED: VRAYLAR3 MG PO (19:11)
== END 2017-11-13 11:37 | disposition home or self-care (01) ==
LOC: MKS.ESL.PT 15:55
DX: Z47.89 Encounter for other orthopedic aftercare (principal)
CPT/HCPCS: G8978-GP; G8979-GP

== ENCOUNTER 2017-09-26 13:22 | Emergency (ER) | payer MEDICAID ==
[2017-09-26 13:23] VITALS: BP 115/55; PULSE 108; TEMP 98.2
[2017-09-26 14:05] LABS: BASO # 0.1 (0.0-0.2); BASO % 0.5 % (0.0-2.0); EOS # 0.5 (0.0-0.7); EOS % 5.2 % (0-4.0); GRAN # 5.3 (1.4-6.5); GRAN % 54.4 % (42.2-75.2); HEMATOCRIT 40.1 % (37.0-47.0); HEMOGLOBIN 13.4 g/dl (12.5-16.0); LYMPH # 3.3 (1.2-3.4); LYMPH % 33.9 % (20.0-51.0); MEAN CELL VOLUME 85 fl (80.0-100.0); MEAN CORPUSCULAR HEMOGLOBIN 29 pg (27.0-31.0); MEAN CORPUSCULAR HGB CONC 33 g/dl (33.0-37.0); MEAN PLATELET VOLUME 8.8 fl (7.4-10.4); MONO # 0.6 (0.1-0.6); MONO % 5.8 % (1.7-9.3); PLATELET COUNT 399 K/mm3 (130-400); REDCELL DISTRIBUTION WIDTH-CV 13.7 % (11.5-14.5)
[2017-09-26 14:18] LABS: ALANINE AMINOTRANSFERASE 38 U/L (9-52); ALBUMIN 3.8 gm/dL (3.5-5.0); ALKALINE PHOSPHATASE 107 U/L (50-136); ANION GAP 10 mmol/L (7-16); AST,SGOT 45 U/L (15-37); BILIRUBIN,TOTAL 0.5 mg/dL (0.0-1.0); BLOOD UREA NITROGEN 9 mg/dL (7-17); CALCIUM 9.4 mg/dL (8.4-10.2); CARBON DIOXIDE 23 mmol/L (22-30); CHLORIDE 108 mmol/L (98-107); CREATININE, serum 0.54 mg/dL (0.52-1.25); GLUCOSE 93 mg/dL (74-106); POTASSIUM 3.9 mmol/L (3.4-5.0); SODIUM 141 mmol/L (137-145); TOTAL PROTEIN 7.4 gm/dL (6.4-8.2)
[2017-09-26 14:51] LABS: TROPONIN-I < 0.012 ng/mL (0.000-0.034)
== END 2017-09-26 15:14 | disposition home or self-care (01) ==
LOC: COL.ER 13:22
PROVIDERS: Family Medicine
DX: J40 Bronchitis, not specified as acute or chronic (principal); M25.562 Pain in left knee; F32.9 Major depressive disorder, single episode, unspecified; F41.9 Anxiety disorder, unspecified
CPT/HCPCS: J1885

== ENCOUNTER 2017-09-26 20:57 | Emergency (ER) | payer MEDICAID ==
[~2017-09-26] VITALS: Ht 157.5 cm; Wt 118.2 kg
[2017-09-26 21:02] VITALS: TEMP 98.5
[2017-09-26 21:24] LABS: COLLECTION METHOD CLEAN CATCH
[2017-09-26 21:26] LABS: BASO # 0.1 (0.0-0.2); BASO % 0.5 % (0.0-2.0); EOS # 0.5 (0.0-0.7); GRAN # 6.8 (1.4-6.5); GRAN % 51.1 % (42.2-75.2); HEMATOCRIT 38.9 % (37.0-47.0); HEMOGLOBIN 13.2 g/dl (12.5-16.0); LYMPH % 37.7 % (20.0-51.0); MEAN CELL VOLUME 84 fl (80.0-100.0); MEAN CORPUSCULAR HEMOGLOBIN 29 pg (27.0-31.0); MEAN CORPUSCULAR HGB CONC 34 g/dl (33.0-37.0); MONO # 0.8 (0.1-0.6); MONO % 6.3 % (1.7-9.3); PLATELET COUNT 433 K/mm3 (130-400); RED BLOOD COUNT 4.61 M/mm3 (4.10-5.30); REDCELL DISTRIBUTION WIDTH-CV 13.8 % (11.5-14.5)
[2017-09-26 21:32] LABS: MUCOUS Present /lpf; PH 5 (5-8); SQUAMOUS EPITHELIAL 0-2 /hpf; URINE APPEARANCE Clear; URINE BACTERIA None Seen /hpf; URINE BILIRUBIN Negative (NEGATIVE); URINE BLOOD Negative (NEGATIVE); URINE COLOR Yellow; URINE GLUCOSE Negative (NEGATIVE); URINE KETONE Negative (NEGATIVE); URINE LEUKOCYTE ESTERASE Negative (NEGATIVE); URINE NITRATE Negative (NEGATIVE); URINE PROTEIN(semi-quant) Negative (NEGATIVE); URINE RBC 0-2 /hpf; URINE UROBILINOGEN Negative (NEGATIVE)
[2017-09-26 21:37] LABS: TRICYCLIC ANTIDEPRESS URINE NEGATIVE
[2017-09-26 21:40] LABS: ACETAMINOPHEN < 10 ug/mL (10-30); ALANINE AMINOTRANSFERASE 39 U/L (9-52); ALBUMIN 3.5 gm/dL (3.5-5.0); ALCOHOL(ethanol),MEDICAL < 10 mg/dL; ALKALINE PHOSPHATASE 134 U/L (50-136); ANION GAP 17 mmol/L (7-16); AST,SGOT 33 U/L (15-37); BILIRUBIN,TOTAL 1.4 mg/dL (0.0-1.0); BLOOD UREA NITROGEN 12 mg/dL (7-17); CALCIUM 9.7 mg/dL (8.4-10.2); CARBON DIOXIDE 18 mmol/L (22-30); CHLORIDE 109 mmol/L (98-107); CREATININE, serum 0.69 mg/dL (0.52-1.25); GLUCOSE 103 mg/dL (74-106); POTASSIUM 3.7 mmol/L (3.4-5.0); SALICYLATE < 1.0 mg/dL; SODIUM 144 mmol/L (137-145); TOTAL PROTEIN 7.3 gm/dL (6.4-8.2)
[2017-09-27 02:58] LABS: ARTERIAL BLD GAS O2 SATURATION 89.7 % (92-100); ARTERIAL BLD GAS TCO2 CT 19.4; ARTERIAL BLOOD GAS BASE EXCESS -6.2 (-2-2); ARTERIAL BLOOD GAS HCO3 18.4 meq/L (22-26); ARTERIAL BLOOD GAS PCO2 33.8 mmHg (35-45); ARTERIAL BLOOD GAS PO2 57.3 mmHg (80-100); ARTERIAL BLOOD GAS pH 7.35 (7.35-7.45)
[2017-09-27 07:04] VITALS: BP 121/55; PULSE 113
== END 2017-09-27 07:48 | disposition short-term general hospital (02) ==
LOC: COL.ER 20:57 → ICU 09-27 03:14 → COL.ER 09-27 03:14
PROVIDERS: Emergency Medicine
DX: T39.392A Poisoning by other nonsteroidal anti-inflammatory drugs [NSAID], intentional self-harm, initial encounter (principal); F32.9 Major depressive disorder, single episode, unspecified; E87.2 Acidosis
CPT/HCPCS: C9113; J1630; J2060; J7030

== ENCOUNTER 2017-10-05 20:57 | Emergency (ER) | payer MEDICAID ==
[~2017-10-05] VITALS: Ht 157.5 cm; Wt 119.1 kg
[2017-10-05 21:05] VITALS: TEMP 98.4
[2017-10-05 21:35] LABS: BASO # 0.1 (0.0-0.2); BASO % 0.5 % (0.0-2.0); EOS # 0.6 (0.0-0.7); EOS % 4.9 % (0-4.0); GRAN # 6.2 (1.4-6.5); GRAN % 51.5 % (42.2-75.2); HEMATOCRIT 38.9 % (37.0-47.0); HEMOGLOBIN 12.9 g/dl (12.5-16.0); LYMPH # 4.3 (1.2-3.4); LYMPH % 36.3 % (20.0-51.0); MEAN CELL VOLUME 85 fl (80.0-100.0); MEAN CORPUSCULAR HEMOGLOBIN 28 pg (27.0-31.0); MEAN CORPUSCULAR HGB CONC 33 g/dl (33.0-37.0); MEAN PLATELET VOLUME 8.9 fl (7.4-10.4); MONO # 0.8 (0.1-0.6); MONO % 6.4 % (1.7-9.3); PLATELET COUNT 366 K/mm3 (130-400); RED BLOOD COUNT 4.58 M/mm3 (4.10-5.30); REDCELL DISTRIBUTION WIDTH-CV 13.6 % (11.5-14.5)
[2017-10-05 21:46] LABS: ALANINE AMINOTRANSFERASE 29 U/L (9-52); ALBUMIN 3.9 gm/dL (3.5-5.0); ALKALINE PHOSPHATASE 83 U/L (50-136); ANION GAP 12 mmol/L (7-16); AST,SGOT 19 U/L (15-37); BILIRUBIN,TOTAL 0.4 mg/dL (0.0-1.0); BLOOD UREA NITROGEN 10 mg/dL (7-17); CALCIUM 9.7 mg/dL (8.4-10.2); CARBON DIOXIDE 22 mmol/L (22-30); CHLORIDE 108 mmol/L (98-107); CREATININE, serum 0.58 mg/dL (0.52-1.25); GLUCOSE 89 mg/dL (74-106); SODIUM 142 mmol/L (137-145); TOTAL PROTEIN 7.4 gm/dL (6.4-8.2)
[2017-10-05 21:49] LABS: COLLECTION METHOD CLEAN CATCH
[2017-10-05 21:50] LABS: ACETAMINOPHEN < 10 ug/mL (10-30); ALCOHOL(ethanol),MEDICAL < 10 mg/dL; SALICYLATE < 1.0 mg/dL
[2017-10-05] MEDS ORDERED: NORCO 325 MG-7.1 TAB PO (21:50)
[2017-10-05 22:02] LABS: AMORPHOUS CRYSTAL Present /uL; PH 7 (5-8); SQUAMOUS EPITHELIAL 0-2 /hpf; URINE APPEARANCE Cloudy; URINE BACTERIA None Seen /hpf; URINE BILIRUBIN Negative (NEGATIVE); URINE BLOOD Negative (NEGATIVE); URINE COLOR Yellow; URINE GLUCOSE Negative (NEGATIVE); URINE KETONE Negative (NEGATIVE); URINE LEUKOCYTE ESTERASE Negative (NEGATIVE); URINE NITRATE Negative (NEGATIVE); URINE PROTEIN(semi-quant) Negative (NEGATIVE); URINE RBC 0-2 /hpf; URINE UROBILINOGEN Negative (NEGATIVE)
[2017-10-05 22:04] LABS: TRICYCLIC ANTIDEPRESS URINE NEGATIVE
[2017-10-05 23:50] VITALS: BP 135/78; PULSE 93
== END 2017-10-05 23:50 | disposition home or self-care (01) ==
LOC: COL.ER 20:57
PROVIDERS: Emergency Medicine
DX: R45.851 Suicidal ideations (principal); M25.562 Pain in left knee; F31.9 Bipolar disorder, unspecified; F43.10 Post-traumatic stress disorder, unspecified; F17.210 Nicotine dependence, cigarettes, uncomplicated; Z90.49 Acquired absence of other specified parts of digestive tract; Z98.890 Other specified postprocedural states; Z91.5 Personal history of self-harm

== ENCOUNTER 2017-10-08 11:47 | Emergency (ER) | payer MEDICAID ==
[~2017-10-08] VITALS: Ht 157.5 cm; Wt 118.2 kg
[~2017-10-08 11:47] MED LIST changes: +NORCO 325 MG-7.1 TAB PO
[2017-10-08 11:51] VITALS: TEMP 98.3
[2017-10-08 12:37] LABS: BASO % 0.1 % (0.0-2.0); GRAN # 11.3 (1.4-6.5); GRAN % 74.9 % (42.2-75.2); HEMATOCRIT 40.5 % (37.0-47.0); HEMOGLOBIN 13.7 g/dl (12.5-16.0); LYMPH # 2.9 (1.2-3.4); LYMPH % 19.1 % (20.0-51.0); MEAN CELL VOLUME 84 fl (80.0-100.0); MEAN CORPUSCULAR HEMOGLOBIN 29 pg (27.0-31.0); MEAN CORPUSCULAR HGB CONC 34 g/dl (33.0-37.0); MONO # 0.8 (0.1-0.6); MONO % 5.4 % (1.7-9.3); PLATELET COUNT 429 K/mm3 (130-400); REDCELL DISTRIBUTION WIDTH-CV 13.7 % (11.5-14.5)
[2017-10-08 12:41] LABS: ALBUMIN 4.2 gm/dL (3.5-5.0); BILIRUBIN,TOTAL 0.5 mg/dL (0.0-1.0); C-REACTIVE PROTEIN 0.9 mg/dL (0.0-0.9); CALCIUM 9.9 mg/dL (8.4-10.2); CREATININE, serum 0.5 mg/dL (0.52-1.25); TOTAL PROTEIN 8.4 gm/dL (6.4-8.2)
[2017-10-08] MEDS ORDERED: FLAGYL500 MG PO (15:29)
[2017-10-08] MEDS ORDERED: DOXYCYCLINE 10100 MG PO (15:29)
[2017-10-08 15:50] LABS: COLLECTION METHOD CLEAN CATCH
[2017-10-08 15:55] LABS: MUCOUS Present /lpf; PH 5 (5-8); URINE APPEARANCE Clear; URINE BACTERIA None Seen /hpf; URINE BILIRUBIN Negative (NEGATIVE); URINE BLOOD Negative (NEGATIVE); URINE COLOR Yellow; URINE GLUCOSE Negative (NEGATIVE); URINE KETONE Negative (NEGATIVE); URINE LEUKOCYTE ESTERASE Negative (NEGATIVE); URINE NITRATE Negative (NEGATIVE); URINE PROTEIN(semi-quant) Negative (NEGATIVE); URINE RBC 0-2 /hpf; URINE UROBILINOGEN Negative (NEGATIVE)
[2017-10-08 16:06] VITALS: BP 128/82; PULSE 92
[2017-10-08] MEDS ORDERED: ZOFRAN ODT4 MG PO (23:20)
== END 2017-10-08 16:07 | disposition home or self-care (01) ==
LOC: COL.ER 11:47
PROVIDERS: Emergency Medicine
DX: R10.2 Pelvic and perineal pain (principal); Z90.49 Acquired absence of other specified parts of digestive tract; Z98.890 Other specified postprocedural states
CPT/HCPCS: J0696; Q9967

== ENCOUNTER 2017-10-08 21:45 | Emergency (ER) | payer MEDICAID ==
[~2017-10-08] VITALS: Ht 157.5 cm; Wt 118.2 kg
[~2017-10-08 21:45] MED LIST changes: +DOXYCYCLINE 10100 MG PO
[2017-10-08 21:48] VITALS: BP 107/75; TEMP 98
[2017-10-08] MEDS ORDERED: ZOFRAN ODT4 MG PO (23:20)
[2017-10-09 00:15] VITALS: PULSE 93
== END 2017-10-09 00:15 | disposition home or self-care (01) ==
LOC: COL.ER 21:45
DX: R10.31 Right lower quadrant pain (principal); J45.909 Unspecified asthma, uncomplicated; Z86.39 Personal history of other endocrine, nutritional and metabolic disease
CPT/HCPCS: J1885

== ENCOUNTER 2017-10-09 00:39 | Emergency (ER) | payer MEDICAID ==
[~2017-10-09] VITALS: Ht 157.5 cm; Wt 118.2 kg
[~2017-10-09 00:39] MED LIST changes: +ZOFRAN ODT4 MG PO
[2017-10-09 00:57] VITALS: TEMP 97.7
[2017-10-09 01:57] LABS: BASO % 0.3 % (0.0-2.0); EOS % 0.1 % (0-4.0); GRAN # 10.9 (1.4-6.5); GRAN % 70.7 % (42.2-75.2); HEMATOCRIT 38.7 % (37.0-47.0); HEMOGLOBIN 12.8 g/dl (12.5-16.0); LYMPH # 3.6 (1.2-3.4); LYMPH % 23.5 % (20.0-51.0); MEAN CELL VOLUME 85 fl (80.0-100.0); MEAN CORPUSCULAR HEMOGLOBIN 28 pg (27.0-31.0); MEAN CORPUSCULAR HGB CONC 33 g/dl (33.0-37.0); MEAN PLATELET VOLUME 8.7 fl (7.4-10.4); MONO # 0.8 (0.1-0.6); MONO % 4.9 % (1.7-9.3); PLATELET COUNT 407 K/mm3 (130-400); RED BLOOD COUNT 4.55 M/mm3 (4.10-5.30)
[2017-10-09 02:08] LABS: ACETAMINOPHEN < 10 ug/mL (10-30); ALANINE AMINOTRANSFERASE 28 U/L (9-52); ALBUMIN 3.9 gm/dL (3.5-5.0); ALCOHOL(ethanol),MEDICAL < 10 mg/dL; ALKALINE PHOSPHATASE 89 U/L (50-136); ANION GAP 13 mmol/L (7-16); AST,SGOT 19 U/L (15-37); BILIRUBIN,TOTAL 0.4 mg/dL (0.0-1.0); BLOOD UREA NITROGEN 13 mg/dL (7-17); CALCIUM 9.6 mg/dL (8.4-10.2); CARBON DIOXIDE 22 mmol/L (22-30); CHLORIDE 109 mmol/L (98-107); CREATININE, serum 0.58 mg/dL (0.52-1.25); GLUCOSE 115 mg/dL (74-106); POTASSIUM 3.6 mmol/L (3.4-5.0); SALICYLATE < 1.0 mg/dL; SODIUM 144 mmol/L (137-145); TOTAL PROTEIN 7.6 gm/dL (6.4-8.2)
[2017-10-09 02:11] VITALS: BP 120/60; PULSE 88
== END 2017-10-09 02:11 | disposition home or self-care (01) ==
LOC: COL.ER 00:39
PROVIDERS: Nurse Practitioner
DX: R45.851 Suicidal ideations (principal); F60.9 Personality disorder, unspecified

== ENCOUNTER 2017-10-09 19:09 | Emergency (ER) | payer MEDICAID ==
[~2017-10-09] VITALS: Ht 157.5 cm; Wt 118.2 kg
[2017-10-09 19:16] VITALS: TEMP 97.8
[2017-10-09 19:39] LABS: BASO # 0.1 (0.0-0.2); BASO % 0.3 % (0.0-2.0); EOS % 0.1 % (0-4.0); GRAN # 9.8 (1.4-6.5); GRAN % 64.1 % (42.2-75.2); LYMPH # 4.5 (1.2-3.4); LYMPH % 29.5 % (20.0-51.0); MEAN CELL VOLUME 86 fl (80.0-100.0); MEAN CORPUSCULAR HEMOGLOBIN 29 pg (27.0-31.0); MEAN CORPUSCULAR HGB CONC 33 g/dl (33.0-37.0); MEAN PLATELET VOLUME 8.9 fl (7.4-10.4); MONO # 0.9 (0.1-0.6); MONO % 5.6 % (1.7-9.3); PLATELET COUNT 405 K/mm3 (130-400); RED BLOOD COUNT 4.52 M/mm3 (4.10-5.30); REDCELL DISTRIBUTION WIDTH-CV 14.2 % (11.5-14.5)
[2017-10-09 19:50] LABS: COLLECTION METHOD CLEAN CATCH
[2017-10-09 19:59] LABS: ACETAMINOPHEN 47 ug/mL (10-30); ALANINE AMINOTRANSFERASE 23 U/L (9-52); ALBUMIN 3.8 gm/dL (3.5-5.0); ALCOHOL(ethanol),MEDICAL < 10 mg/dL; ALKALINE PHOSPHATASE 88 U/L (50-136); ANION GAP 14 mmol/L (7-16); AST,SGOT 17 U/L (15-37); BILIRUBIN,TOTAL 0.4 mg/dL (0.0-1.0); BLOOD UREA NITROGEN 15 mg/dL (7-17); CALCIUM 10.2 mg/dL (8.4-10.2); CARBON DIOXIDE 23 mmol/L (22-30); CHLORIDE 109 mmol/L (98-107); CREATININE, serum 0.66 mg/dL (0.52-1.25); GLUCOSE 102 mg/dL (74-106); POTASSIUM 3.8 mmol/L (3.4-5.0); SALICYLATE < 1.0 mg/dL; SODIUM 145 mmol/L (137-145); TOTAL PROTEIN 7.1 gm/dL (6.4-8.2)
[2017-10-09 20:14] VITALS: BP 104/67
[2017-10-09 20:16] LABS: MUCOUS Present /lpf; PH 5 (5-8); URINE APPEARANCE Clear; URINE BACTERIA None Seen /hpf; URINE BILIRUBIN Negative (NEGATIVE); URINE BLOOD 1+ (NEGATIVE); URINE COLOR Yellow; URINE GLUCOSE Negative (NEGATIVE); URINE KETONE Negative (NEGATIVE); URINE LEUKOCYTE ESTERASE Negative (NEGATIVE); URINE NITRATE Negative (NEGATIVE); URINE PROTEIN(semi-quant) Negative (NEGATIVE); URINE RBC 0-2 /hpf; URINE UROBILINOGEN Negative (NEGATIVE)
[2017-10-09 20:23] LABS: TRICYCLIC ANTIDEPRESS URINE NEGATIVE
[2017-10-10 01:19] VITALS: PULSE 72
== END 2017-10-10 01:18 | disposition home or self-care (01) ==
LOC: COL.ER 19:09
PROVIDERS: Nurse Practitioner
DX: T45.0X2A Poisoning by antiallergic and antiemetic drugs, intentional self-harm, initial encounter (principal); T40.2X2A Poisoning by other opioids, intentional self-harm, initial encounter; G89.29 Other chronic pain; M25.569 Pain in unspecified knee; F31.9 Bipolar disorder, unspecified; F43.10 Post-traumatic stress disorder, unspecified; F41.9 Anxiety disorder, unspecified; F60.3 Borderline personality disorder

== ENCOUNTER 2017-10-10 21:09 | Emergency (ER) | payer MEDICAID ==
[~2017-10-10] VITALS: Ht 167.6 cm; Wt 127.3 kg
[2017-10-10 21:09] VITALS: TEMP 98.7
[2017-10-10 21:28] LABS: BASO # 0.1 (0.0-0.2); BASO % 0.6 % (0.0-2.0); EOS # 0.1 (0.0-0.7); EOS % 0.7 % (0-4.0); GRAN # 9.1 (1.4-6.5); GRAN % 56.8 % (42.2-75.2); HEMATOCRIT 38.4 % (37.0-47.0); HEMOGLOBIN 12.6 g/dl (12.5-16.0); LYMPH # 5.7 (1.2-3.4); LYMPH % 35.8 % (20.0-51.0); MEAN CELL VOLUME 86 fl (80.0-100.0); MEAN CORPUSCULAR HEMOGLOBIN 28 pg (27.0-31.0); MEAN CORPUSCULAR HGB CONC 33 g/dl (33.0-37.0); MEAN PLATELET VOLUME 9.1 fl (7.4-10.4); MONO # 0.9 (0.1-0.6); MONO % 5.7 % (1.7-9.3); PLATELET COUNT 387 K/mm3 (130-400); RED BLOOD COUNT 4.47 M/mm3 (4.10-5.30)
[2017-10-10 21:40] LABS: ALANINE AMINOTRANSFERASE 26 U/L (9-52); ALBUMIN 3.9 gm/dL (3.5-5.0); ALKALINE PHOSPHATASE 95 U/L (50-136); ANION GAP 15 mmol/L (7-16); AST,SGOT 20 U/L (15-37); BILIRUBIN,TOTAL 0.4 mg/dL (0.0-1.0); BLOOD UREA NITROGEN 15 mg/dL (7-17); CALCIUM 9.6 mg/dL (8.4-10.2); CARBON DIOXIDE 24 mmol/L (22-30); CHLORIDE 104 mmol/L (98-107); CREATININE, serum 0.63 mg/dL (0.52-1.25); GLUCOSE 156 mg/dL (74-106); POTASSIUM 3.7 mmol/L (3.4-5.0); SALICYLATE < 1.0 mg/dL; SODIUM 143 mmol/L (137-145); TOTAL PROTEIN 7.4 gm/dL (6.4-8.2)
[2017-10-10 21:41] LABS: ACETAMINOPHEN 112 ug/mL (10-30); ALCOHOL(ethanol),MEDICAL < 10 mg/dL
[2017-10-10 22:57] LABS: COLLECTION METHOD CLEAN CATCH
[2017-10-10 23:06] LABS: MUCOUS Present /lpf; PH 5 (5-8); URINE APPEARANCE Hazy; URINE BACTERIA None Seen /hpf; URINE BILIRUBIN Negative (NEGATIVE); URINE BLOOD Negative (NEGATIVE); URINE COLOR Yellow; URINE GLUCOSE Negative (NEGATIVE); URINE KETONE Negative (NEGATIVE); URINE LEUKOCYTE ESTERASE Trace (NEGATIVE); URINE NITRATE Negative (NEGATIVE); URINE PROTEIN(semi-quant) 1+ (NEGATIVE); URINE RBC 0-2 /hpf; URINE UROBILINOGEN Negative (NEGATIVE)
[2017-10-10 23:09] LABS: TRICYCLIC ANTIDEPRESS URINE NEGATIVE
[2017-10-11 09:02] VITALS: BP 107/47; PULSE 68
== END 2017-10-11 11:30 ==
LOC: COL.ER 21:09
PROVIDERS: Emergency Medicine
DX: T40.2X2A Poisoning by other opioids, intentional self-harm, initial encounter (principal); R45.851 Suicidal ideations; F32.9 Major depressive disorder, single episode, unspecified
CPT/HCPCS: J2405; J7030

== ENCOUNTER → 2017-10-10 | Outpatient (CLI) | payer MEDICAID ==
[2017-10-10 17:27] LABS: BASO # 0.1 (0.0-0.2); BASO % 0.4 % (0.0-2.0); EOS # 0.1 (0.0-0.7); EOS % 0.6 % (0-4.0); GRAN # 10.2 (1.4-6.5); GRAN % 62.6 % (42.2-75.2); HEMATOCRIT 39.4 % (37.0-47.0); LYMPH # 4.8 (1.2-3.4); LYMPH % 29.6 % (20.0-51.0); MEAN CELL VOLUME 87 fl (80.0-100.0); MEAN CORPUSCULAR HEMOGLOBIN 29 pg (27.0-31.0); MEAN CORPUSCULAR HGB CONC 33 g/dl (33.0-37.0); MONO # 1.1 (0.1-0.6); MONO % 6.4 % (1.7-9.3); PLATELET COUNT 401 K/mm3 (130-400); RED BLOOD COUNT 4.53 M/mm3 (4.10-5.30); REDCELL DISTRIBUTION WIDTH-CV 14.2 % (11.5-14.5)
[2017-10-10 17:38] LABS: BILIRUBIN,TOTAL 0.3 mg/dL (0.0-1.0); CALCIUM 9.7 mg/dL (8.4-10.2); CREATININE, serum 0.67 mg/dL (0.52-1.25); POTASSIUM 3.6 mmol/L (3.4-5.0); TOTAL PROTEIN 7.7 gm/dL (6.4-8.2)
== END ==
LOC: COL.LAB 16:43
PROVIDERS: Family Medicine
DX: R10.9 Unspecified abdominal pain (principal)

== ENCOUNTER 2017-10-17 17:13 | Emergency (ER) | payer MEDICAID ==
[~2017-10-17] VITALS: Ht 157.5 cm; Wt 118.2 kg
[2017-10-17 17:14] VITALS: TEMP 98.4
[2017-10-17 19:04] VITALS: BP 134/47; PULSE 125
== END 2017-10-17 19:10 | disposition home or self-care (01) ==
LOC: COL.ER 17:13
DX: R00.0 Tachycardia, unspecified (principal); F41.9 Anxiety disorder, unspecified; F31.9 Bipolar disorder, unspecified; F43.10 Post-traumatic stress disorder, unspecified; Z90.49 Acquired absence of other specified parts of digestive tract; F17.210 Nicotine dependence, cigarettes, uncomplicated; J45.909 Unspecified asthma, uncomplicated; F60.3 Borderline personality disorder; Z86.39 Personal history of other endocrine, nutritional and metabolic disease

== ENCOUNTER 2017-10-19 13:41 | Emergency (ER) | payer MEDICAID ==
[~2017-10-19] VITALS: Ht 157.5 cm; Wt 118.2 kg
[2017-10-19 14:06] LABS: BASO # 0.1 (0.0-0.2); BASO % 0.4 % (0.0-2.0); EOS # 0.3 (0.0-0.7); EOS % 2.3 % (0-4.0); GRAN # 8.1 (1.4-6.5); GRAN % 60.9 % (42.2-75.2); HEMATOCRIT 41.6 % (37.0-47.0); HEMOGLOBIN 14.1 g/dl (12.5-16.0); LYMPH # 4.2 (1.2-3.4); LYMPH % 31.4 % (20.0-51.0); MEAN CELL VOLUME 85 fl (80.0-100.0); MEAN CORPUSCULAR HEMOGLOBIN 29 pg (27.0-31.0); MEAN CORPUSCULAR HGB CONC 34 g/dl (33.0-37.0); MONO # 0.6 (0.1-0.6); MONO % 4.8 % (1.7-9.3); PLATELET COUNT 391 K/mm3 (130-400); RED BLOOD COUNT 4.89 M/mm3 (4.10-5.30); REDCELL DISTRIBUTION WIDTH-CV 13.9 % (11.5-14.5)
[2017-10-19 14:12] LABS: PROTHROMBIN TIME 11.4 SECONDS (9.7-12.8)
[2017-10-19 14:17] LABS: D-DIMER < 200.00 ng/mLDDu (200-230)
[2017-10-19 14:19] LABS: ALANINE AMINOTRANSFERASE 37 U/L (9-52); ALBUMIN 3.9 gm/dL (3.5-5.0); ALKALINE PHOSPHATASE 103 U/L (50-136); ANION GAP 15 mmol/L (7-16); AST,SGOT 25 U/L (15-37); BILIRUBIN,TOTAL 0.7 mg/dL (0.0-1.0); BLOOD UREA NITROGEN 9 mg/dL (7-17); CALCIUM 9.8 mg/dL (8.4-10.2); CARBON DIOXIDE 20 mmol/L (22-30); CHLORIDE 109 mmol/L (98-107); CREATININE, serum 0.64 mg/dL (0.52-1.25); GLUCOSE 130 mg/dL (74-106); POTASSIUM 3.6 mmol/L (3.4-5.0); SODIUM 144 mmol/L (137-145); TOTAL PROTEIN 7.6 gm/dL (6.4-8.2)
[2017-10-19 14:32] LABS: TROPONIN-I < 0.012 ng/mL (0.000-0.034)
[2017-10-19 15:25] VITALS: BP 118/75
[2017-10-19 15:51] VITALS: PULSE 82
== END 2017-10-19 15:51 | disposition home or self-care (01) ==
LOC: COL.ER 13:41
PROVIDERS: Emergency Medicine
DX: R07.89 Other chest pain (principal); F31.9 Bipolar disorder, unspecified; I10 Essential (primary) hypertension; F20.9 Schizophrenia, unspecified; F17.210 Nicotine dependence, cigarettes, uncomplicated; J45.909 Unspecified asthma, uncomplicated; Z90.49 Acquired absence of other specified parts of digestive tract
CPT/HCPCS: J7030

== ENCOUNTER 2017-10-19 22:17 | Emergency (ER) | payer MEDICAID ==
[2017-10-19 22:21] VITALS: TEMP 98.4
[2017-10-20 04:00] VITALS: BP 110/60; PULSE 94
== END 2017-10-20 04:07 | disposition home or self-care (01) ==
LOC: COL.ER 22:17
DX: F32.9 Major depressive disorder, single episode, unspecified (principal); F43.10 Post-traumatic stress disorder, unspecified

== ENCOUNTER 2017-10-20 20:24 | Emergency (ER) | payer MEDICAID ==
[2017-10-20 20:31] VITALS: BP 128/76; PULSE 93; TEMP 97.9
== END 2017-10-20 20:36 | disposition left against medical advice (07) ==
LOC: COL.ER 20:24
DX: F60.3 Borderline personality disorder (principal); F25.0 Schizoaffective disorder, bipolar type

== ENCOUNTER 2017-10-20 20:43 | Emergency (ER) | payer MEDICAID ==
[~2017-10-20] VITALS: Ht 157.5 cm; Wt 117.3 kg
[2017-10-20 20:57] VITALS: TEMP 99
[2017-10-20 22:04] LABS: COLLECTION METHOD CLEAN CATCH
[2017-10-20 22:13] LABS: MUCOUS Present /lpf; PH 5 (5-8); URINE APPEARANCE Hazy; URINE BACTERIA None Seen /hpf; URINE BILIRUBIN Negative (NEGATIVE); URINE BLOOD 3+ (NEGATIVE); URINE COLOR Yellow; URINE GLUCOSE Negative (NEGATIVE); URINE KETONE Negative (NEGATIVE); URINE LEUKOCYTE ESTERASE Trace (NEGATIVE); URINE NITRATE Negative (NEGATIVE); URINE PROTEIN(semi-quant) 1+ (NEGATIVE); URINE RBC >50 /hpf; URINE UROBILINOGEN Negative (NEGATIVE)
[2017-10-20 22:20] LABS: TRICYCLIC ANTIDEPRESS URINE NEGATIVE
[2017-10-20 22:21] LABS: BASO % 0.3 % (0.0-2.0); EOS # 0.3 (0.0-0.7); EOS % 2.3 % (0-4.0); GRAN # 6.3 (1.4-6.5); GRAN % 56.2 % (42.2-75.2); HEMOGLOBIN 12.8 g/dl (12.5-16.0); LYMPH # 3.8 (1.2-3.4); LYMPH % 34.1 % (20.0-51.0); MEAN CELL VOLUME 86 fl (80.0-100.0); MEAN CORPUSCULAR HEMOGLOBIN 28 pg (27.0-31.0); MEAN CORPUSCULAR HGB CONC 33 g/dl (33.0-37.0); MEAN PLATELET VOLUME 8.9 fl (7.4-10.4); MONO # 0.8 (0.1-0.6); MONO % 6.9 % (1.7-9.3); PLATELET COUNT 359 K/mm3 (130-400); RED BLOOD COUNT 4.55 M/mm3 (4.10-5.30); REDCELL DISTRIBUTION WIDTH-CV 14.1 % (11.5-14.5)
[2017-10-20 22:32] LABS: ALANINE AMINOTRANSFERASE 36 U/L (9-52); ALBUMIN 3.7 gm/dL (3.5-5.0); ALKALINE PHOSPHATASE 94 U/L (50-136); ANION GAP 13 mmol/L (7-16); AST,SGOT 18 U/L (15-37); BILIRUBIN,TOTAL 0.3 mg/dL (0.0-1.0); BLOOD UREA NITROGEN 8 mg/dL (7-17); CALCIUM 9.4 mg/dL (8.4-10.2); CARBON DIOXIDE 24 mmol/L (22-30); CHLORIDE 106 mmol/L (98-107); CREATININE, serum 0.65 mg/dL (0.52-1.25); GLUCOSE 91 mg/dL (74-106); POTASSIUM 3.7 mmol/L (3.4-5.0); SODIUM 143 mmol/L (137-145); TOTAL PROTEIN 7.1 gm/dL (6.4-8.2)
[2017-10-20 22:33] LABS: ACETAMINOPHEN < 10 ug/mL (10-30); ALCOHOL(ethanol),MEDICAL < 10 mg/dL; SALICYLATE < 1.0 mg/dL
[2017-10-21 01:29] VITALS: BP 115/70; PULSE 90
== END 2017-10-21 01:35 | disposition home or self-care (01) ==
LOC: COL.ER 20:43
PROVIDERS: Physician Assistant
DX: T18.198A Other foreign object in esophagus causing other injury, initial encounter (principal); F17.210 Nicotine dependence, cigarettes, uncomplicated; X58.XXXA Exposure to other specified factors, initial encounter

== ENCOUNTER 2017-10-21 16:43 | Emergency (ER) | payer MEDICAID ==
[~2017-10-21] VITALS: Ht 157.5 cm; Wt 117.3 kg
[2017-10-21 16:47] VITALS: BP 118/69; TEMP 98.6
[2017-10-21 18:09] VITALS: PULSE 90
[2017-10-24 17:31] LABS: HELICOBACTER PYLORI STOOL AG Negative (Negative)
== END 2017-10-21 18:09 | disposition home or self-care (01) ==
LOC: COL.ER 16:43
PROVIDERS: Emergency Medicine
DX: T18.4XXA Foreign body in colon, initial encounter (principal); I10 Essential (primary) hypertension; F31.9 Bipolar disorder, unspecified; F41.9 Anxiety disorder, unspecified; F17.210 Nicotine dependence, cigarettes, uncomplicated; X58.XXXA Exposure to other specified factors, initial encounter

== ENCOUNTER 2017-10-22 16:22 | Emergency (ER) | payer MEDICAID ==
[~2017-10-22] VITALS: Ht 157.5 cm; Wt 113.6 kg
[2017-10-22 16:28] VITALS: BP 132/88; PULSE 85; TEMP 98.6
[2017-10-22 16:54] LABS: BASO % 0.4 % (0.0-2.0); EOS # 0.1 (0.0-0.7); EOS % 1.3 % (0-4.0); GRAN # 6.1 (1.4-6.5); GRAN % 62.3 % (42.2-75.2); HEMATOCRIT 39.2 % (37.0-47.0); HEMOGLOBIN 12.9 g/dl (12.5-16.0); LYMPH % 30.1 % (20.0-51.0); MEAN CELL VOLUME 87 fl (80.0-100.0); MEAN CORPUSCULAR HEMOGLOBIN 29 pg (27.0-31.0); MEAN CORPUSCULAR HGB CONC 33 g/dl (33.0-37.0); MEAN PLATELET VOLUME 9.1 fl (7.4-10.4); MONO # 0.6 (0.1-0.6); MONO % 5.7 % (1.7-9.3); PLATELET COUNT 340 K/mm3 (130-400); RED BLOOD COUNT 4.52 M/mm3 (4.10-5.30); REDCELL DISTRIBUTION WIDTH-CV 13.7 % (11.5-14.5)
[2017-10-22 17:02] LABS: ALANINE AMINOTRANSFERASE 42 U/L (9-52); ALBUMIN 3.9 gm/dL (3.5-5.0); ALKALINE PHOSPHATASE 104 U/L (50-136); ANION GAP 13 mmol/L (7-16); AST,SGOT 30 U/L (15-37); BILIRUBIN,TOTAL 0.5 mg/dL (0.0-1.0); BLOOD UREA NITROGEN 10 mg/dL (7-17); CALCIUM 9.7 mg/dL (8.4-10.2); CARBON DIOXIDE 22 mmol/L (22-30); CHLORIDE 105 mmol/L (98-107); CREATININE, serum 0.63 mg/dL (0.52-1.25); GLUCOSE 89 mg/dL (74-106); LIPASE 64 U/L (23-300); POTASSIUM 3.5 mmol/L (3.4-5.0); SODIUM 141 mmol/L (137-145); TOTAL PROTEIN 7.4 gm/dL (6.4-8.2)
[2017-10-22 17:04] LABS: ACETAMINOPHEN < 10 ug/mL (10-30); ALCOHOL(ethanol),MEDICAL < 10 mg/dL; SALICYLATE < 1.0 mg/dL
[2017-10-22 17:05] LABS: COLLECTION METHOD CLEAN CATCH
[2017-10-22 17:12] LABS: MUCOUS Present /lpf; PH 5 (5-8); URINE APPEARANCE Clear; URINE BACTERIA None Seen /hpf; URINE BILIRUBIN Negative (NEGATIVE); URINE BLOOD 3+ (NEGATIVE); URINE COLOR Yellow; URINE GLUCOSE Negative (NEGATIVE); URINE KETONE 1+ (NEGATIVE); URINE LEUKOCYTE ESTERASE Negative (NEGATIVE); URINE NITRATE Negative (NEGATIVE); URINE PROTEIN(semi-quant) Negative (NEGATIVE); URINE RBC 0-2 /hpf; URINE UROBILINOGEN Negative (NEGATIVE)
[2017-10-22 17:25] LABS: TRICYCLIC ANTIDEPRESS URINE NEGATIVE
== END 2017-10-22 19:17 | disposition left against medical advice (07) ==
LOC: COL.ER 16:22
PROVIDERS: Emergency Medicine
DX: T39.312A Poisoning by propionic acid derivatives, intentional self-harm, initial encounter (principal); R45.851 Suicidal ideations

== ENCOUNTER 2017-10-22 19:38 | Emergency (ER) | payer MEDICAID ==
[~2017-10-22] VITALS: Ht 157.5 cm; Wt 113.6 kg
[2017-10-22 19:40] VITALS: BP 153/67; TEMP 99.1
[2017-10-22 23:29] VITALS: PULSE 102
== END 2017-10-22 22:37 | disposition home or self-care (01) ==
LOC: COL.ER 19:38
DX: T39.312A Poisoning by propionic acid derivatives, intentional self-harm, initial encounter (principal); X58.XXXA Exposure to other specified factors, initial encounter

== ENCOUNTER 2017-10-22 23:31 | Emergency (ER) | payer MEDICAID ==
[~2017-10-22] VITALS: Ht 157.5 cm; Wt 113.6 kg
[2017-10-22 23:34] VITALS: BP 131/72
[2017-10-22 23:53] VITALS: TEMP 98.4
[2017-10-23 01:01] VITALS: PULSE 97
== END 2017-10-23 00:58 | disposition home or self-care (01) ==
LOC: COL.ER 23:31
DX: S86.812A Strain of other muscle(s) and tendon(s) at lower leg level, left leg, initial encounter (principal); F31.9 Bipolar disorder, unspecified; F41.9 Anxiety disorder, unspecified; F60.3 Borderline personality disorder; J45.909 Unspecified asthma, uncomplicated; F17.210 Nicotine dependence, cigarettes, uncomplicated; X50.1XXA Overexertion from prolonged static or awkward postures, initial encounter; Y92.410 Unspecified street and highway as the place of occurrence of the external cause

== ENCOUNTER 2017-10-26 21:59 | Emergency (ER) | payer MEDICAID ==
[~2017-10-26] VITALS: Ht 157.5 cm; Wt 118.2 kg
[2017-10-26 22:03] VITALS: TEMP 99.6
[2017-10-26 23:04] VITALS: BP 110/71
[2017-10-26 23:12] VITALS: PULSE 102
== END 2017-10-26 23:46 | disposition home or self-care (01) ==
LOC: COL.ER 21:59
DX: R07.9 Chest pain, unspecified (principal)
CPT/HCPCS: J1885; J2405; J7030

== ENCOUNTER 2017-10-29 19:53 | Emergency (ER) | payer MEDICAID ==
[~2017-10-29] VITALS: Ht 157.5 cm; Wt 118.2 kg
[2017-10-29 19:54] VITALS: TEMP 99.2
[2017-10-29] MEDS ORDERED: ALBUTEROL0.83 MG/ML IH (20:05)
[2017-10-29] MEDS ORDERED: ABILIFY (20:06)
[2017-10-29 20:36] VITALS: BP 151/94
[2017-10-29 20:38] VITALS: PULSE 122
== END 2017-10-29 20:41 | disposition home or self-care (01) ==
LOC: COL.ER 19:53
DX: I10 Essential (primary) hypertension (principal); R00.0 Tachycardia, unspecified; F17.210 Nicotine dependence, cigarettes, uncomplicated; F41.9 Anxiety disorder, unspecified; F20.9 Schizophrenia, unspecified; Z90.49 Acquired absence of other specified parts of digestive tract

== ENCOUNTER 2017-11-05 19:40 | Emergency (ER) | payer MEDICAID ==
[~2017-11-05] VITALS: Ht 157.5 cm; Wt 116.4 kg
[~2017-11-05 19:40] MED LIST changes: +ABILIFY; +ALBUTEROL0.83 MG/ML IH
[2017-11-05 19:43] VITALS: BP 137/72; TEMP 98.1
[2017-11-05] MEDS ORDERED: PROAIR HFA0.09 MG/AC IH (19:57)
[2017-11-05 21:45] VITALS: PULSE 110
== END 2017-11-05 21:45 | disposition home or self-care (01) ==
LOC: COL.ER 19:40
DX: M25.531 Pain in right wrist (principal); J45.909 Unspecified asthma, uncomplicated; F31.9 Bipolar disorder, unspecified; F43.10 Post-traumatic stress disorder, unspecified; F17.210 Nicotine dependence, cigarettes, uncomplicated; W18.39XA Other fall on same level, initial encounter; Y92.89 Other specified places as the place of occurrence of the external cause

== ENCOUNTER 2017-11-13 11:51 | Emergency (ER) | payer MEDICAID ==
[~2017-11-13] VITALS: Ht 157.5 cm; Wt 117.3 kg
[2017-11-13 11:55] VITALS: BP 121/74; PULSE 109; TEMP 98.7
[2017-11-13 13:03] LABS: BASO % 0.4 % (0.0-2.0); EOS # 0.4 (0.0-0.7); EOS % 3.8 % (0-4.0); GRAN # 5.7 (1.4-6.5); GRAN % 58.8 % (42.2-75.2); HEMATOCRIT 41.1 % (37.0-47.0); HEMOGLOBIN 13.7 g/dl (12.5-16.0); LYMPH % 30.9 % (20.0-51.0); MEAN CELL VOLUME 85 fl (80.0-100.0); MEAN CORPUSCULAR HEMOGLOBIN 28 pg (27.0-31.0); MEAN CORPUSCULAR HGB CONC 33 g/dl (33.0-37.0); MEAN PLATELET VOLUME 9.1 fl (7.4-10.4); MONO # 0.6 (0.1-0.6); MONO % 5.9 % (1.7-9.3); PLATELET COUNT 339 K/mm3 (130-400); RED BLOOD COUNT 4.85 M/mm3 (4.10-5.30); REDCELL DISTRIBUTION WIDTH-CV 13.4 % (11.5-14.5)
[2017-11-13 13:16] LABS: ALBUMIN 3.7 gm/dL (3.5-5.0); BILIRUBIN,TOTAL 0.2 mg/dL (0.0-1.0); C-REACTIVE PROTEIN 0.8 mg/dL (0.0-0.9); CALCIUM 9.5 mg/dL (8.4-10.2); CREATININE, serum 0.63 mg/dL (0.52-1.25); POTASSIUM 4.2 mmol/L (3.4-5.0)
[2017-11-13 13:32] LABS: COLLECTION METHOD CATHETER
[2017-11-13 13:38] LABS: MUCOUS Present /lpf; PH 7 (5-8); SQUAMOUS EPITHELIAL 0-2 /hpf; URINE APPEARANCE Clear; URINE BACTERIA Rare /hpf; URINE BILIRUBIN Negative (NEGATIVE); URINE BLOOD Negative (NEGATIVE); URINE COLOR Yellow; URINE GLUCOSE Negative (NEGATIVE); URINE KETONE Negative (NEGATIVE); URINE LEUKOCYTE ESTERASE Negative (NEGATIVE); URINE NITRATE Negative (NEGATIVE); URINE PROTEIN(semi-quant) Negative (NEGATIVE); URINE RBC 0-2 /hpf; URINE UROBILINOGEN Negative (NEGATIVE)
[2017-11-13] MEDS ORDERED: VRAYLAR3 MG PO (19:11)
== END 2017-11-13 14:40 | disposition home or self-care (01) ==
LOC: COL.ER 11:51
PROVIDERS: Physician Assistant
DX: R39.11 Hesitancy of micturition (principal); F17.210 Nicotine dependence, cigarettes, uncomplicated; F25.0 Schizoaffective disorder, bipolar type; Z90.49 Acquired absence of other specified parts of digestive tract

== ENCOUNTER 2017-11-13 18:54 | Emergency (ER) | payer MEDICAID ==
[~2017-11-13] VITALS: Ht 157.5 cm; Wt 121.8 kg
[2017-11-13 18:57] VITALS: BP 124/65; TEMP 98.9
[2017-11-13] MEDS ORDERED: VRAYLAR3 MG PO (19:11)
[2017-11-13 20:34] VITALS: PULSE 108
== END 2017-11-13 20:35 | disposition home or self-care (01) ==
LOC: COL.ER 18:54
DX: T78.1XXA Other adverse food reactions, not elsewhere classified, initial encounter (principal); F31.9 Bipolar disorder, unspecified; F43.10 Post-traumatic stress disorder, unspecified; F41.9 Anxiety disorder, unspecified; F60.3 Borderline personality disorder
CPT/HCPCS: J1100

== ENCOUNTER 2017-11-16 16:09 | Emergency (ER) | payer MEDICAID ==
[~2017-11-16] VITALS: Ht 157.5 cm; Wt 116.4 kg
[~2017-11-16 16:09] MED LIST changes: +VRAYLAR3 MG PO
[2017-11-16 16:42] LABS: BASO # 0.1 (0.0-0.2); BASO % 0.6 % (0.0-2.0); EOS # 0.4 (0.0-0.7); EOS % 3.5 % (0-4.0); GRAN # 6.2 (1.4-6.5); GRAN % 59.7 % (42.2-75.2); HEMATOCRIT 39.8 % (37.0-47.0); HEMOGLOBIN 13.2 g/dl (12.5-16.0); LYMPH # 3.2 (1.2-3.4); LYMPH % 31.1 % (20.0-51.0); MEAN CELL VOLUME 85 fl (80.0-100.0); MEAN CORPUSCULAR HEMOGLOBIN 28 pg (27.0-31.0); MEAN CORPUSCULAR HGB CONC 33 g/dl (33.0-37.0); MEAN PLATELET VOLUME 9.3 fl (7.4-10.4); MONO # 0.5 (0.1-0.6); MONO % 4.8 % (1.7-9.3); PLATELET COUNT 353 K/mm3 (130-400); RED BLOOD COUNT 4.67 M/mm3 (4.10-5.30); REDCELL DISTRIBUTION WIDTH-CV 13.7 % (11.5-14.5)
[2017-11-16] MEDS ORDERED: MIRTAZAPINE7.5 MG PO (16:50)
[2017-11-16 17:13] LABS: ANION GAP 10 mmol/L (7-16); BLOOD UREA NITROGEN 9 mg/dL (7-17); CARBON DIOXIDE 24 mmol/L (22-30); CHLORIDE 105 mmol/L (98-107); CREATININE, serum 0.56 mg/dL (0.52-1.25); GLUCOSE 196 mg/dL (74-106); POTASSIUM 3.2 mmol/L (3.4-5.0); SODIUM 139 mmol/L (137-145)
[2017-11-16 17:29] LABS: TROPONIN-I < 0.012 ng/mL (0.000-0.034)
[2017-11-16 17:36] LABS: COLLECTION METHOD CATHETER
[2017-11-16 17:41] LABS: MUCOUS Present /lpf; PH 6 (5-8); SQUAMOUS EPITHELIAL 0-2 /hpf; URINE APPEARANCE Clear; URINE BACTERIA None Seen /hpf; URINE BILIRUBIN Negative (NEGATIVE); URINE BLOOD Negative (NEGATIVE); URINE COLOR Yellow; URINE GLUCOSE Negative (NEGATIVE); URINE KETONE Negative (NEGATIVE); URINE LEUKOCYTE ESTERASE Negative (NEGATIVE); URINE NITRATE Negative (NEGATIVE); URINE PROTEIN(semi-quant) Negative (NEGATIVE); URINE UROBILINOGEN Negative (NEGATIVE)
[2017-11-16 17:56] VITALS: BP 128/89; PULSE 115
== END 2017-11-16 17:58 | disposition home or self-care (01) ==
LOC: COL.ER 16:09
PROVIDERS: Emergency Medicine
DX: R07.89 Other chest pain (principal); R33.9 Retention of urine, unspecified; J45.909 Unspecified asthma, uncomplicated; Z90.49 Acquired absence of other specified parts of digestive tract; Z98.890 Other specified postprocedural states; F17.210 Nicotine dependence, cigarettes, uncomplicated

== ENCOUNTER 2017-11-20 22:39 | Emergency (ER) | payer MEDICAID ==
[~2017-11-20] VITALS: Ht 157.5 cm; Wt 116.4 kg
[~2017-11-20 22:39] MED LIST changes: +MIRTAZAPINE7.5 MG PO
[2017-11-20 22:48] VITALS: TEMP 98.3
[2017-11-21 01:35] VITALS: PULSE 103
== END 2017-11-21 01:40 | disposition home or self-care (01) ==
LOC: COL.ER 22:39
DX: F41.9 Anxiety disorder, unspecified (principal); F32.9 Major depressive disorder, single episode, unspecified

== ENCOUNTER 2017-11-21 17:36 | Emergency (ER) | payer MEDICAID ==
[~2017-11-21] VITALS: Ht 157.5 cm; Wt 116.4 kg
[2017-11-21 17:42] VITALS: BP 137/22; TEMP 98.6
[2017-11-21 21:28] VITALS: PULSE 113
== END 2017-11-21 20:35 | disposition home or self-care (01) ==
LOC: COL.ER 17:36
DX: R45.851 Suicidal ideations (principal)

== ENCOUNTER 2017-11-27 01:42 | Emergency (ER) | payer MEDICAID ==
[~2017-11-27] VITALS: Ht 157.5 cm; Wt 116.4 kg
[~2017-11-27 01:42] MED LIST changes: -ABIL400; -REMERON 15M15 MG/TA1 PO
[2017-11-27 01:47] VITALS: BP 121/62; PULSE 126; TEMP 98.7
[2017-11-27 02:11] LABS: COLLECTION METHOD CLEAN CATCH
[2017-11-27 02:17] LABS: PH 6 (5-8); SQUAMOUS EPITHELIAL 0-2 /hpf; URINE APPEARANCE Clear; URINE BACTERIA None Seen /hpf; URINE BILIRUBIN Negative (NEGATIVE); URINE BLOOD Negative (NEGATIVE); URINE COLOR Straw; URINE GLUCOSE Negative (NEGATIVE); URINE KETONE Negative (NEGATIVE); URINE LEUKOCYTE ESTERASE Negative (NEGATIVE); URINE NITRATE Negative (NEGATIVE); URINE PROTEIN(semi-quant) Negative (NEGATIVE); URINE RBC 0-2 /hpf; URINE UROBILINOGEN Negative (NEGATIVE)
[2017-11-27] MEDS ORDERED: REMERON 15M15 MG/TA1 PO (02:38)
[2017-11-27] MEDS ORDERED: ABIL400 (02:39)
== END 2017-11-27 03:20 | disposition home or self-care (01) ==
LOC: COL.ER 01:42
PROVIDERS: Emergency Medicine
DX: T76.21XA Adult sexual abuse, suspected, initial encounter (principal); S10.93XA Contusion of unspecified part of neck, initial encounter; S30.0XXA Contusion of lower back and pelvis, initial encounter; J45.909 Unspecified asthma, uncomplicated; Y04.8XXA Assault by other bodily force, initial encounter

== ENCOUNTER → 2017-11-27 | Outpatient (REF) ==
[~2017-11-27] MED LIST changes: +ABIL400; +REMERON 15M15 MG/TA1 PO
== END ==
LOC: LDRO 01:46
DX: Z04.41 Encounter for examination and observation following alleged adult rape (principal)

== ENCOUNTER → 2017-11-27 | Outpatient (CLI) | payer MEDICAID | LOC: LDRO 01:45 | DX: Z04.41 Encounter for examination and observation following alleged adult rape (principal) ==

== ENCOUNTER → 2017-12-01 | Outpatient (CLI) | payer MEDICAID ==
[~2017-12-01] MED LIST changes: +ABIL400; +REMERON 15M15 MG/TA1 PO
== END ==
LOC: COL.LAB 14:23
DX: T74.21XA Adult sexual abuse, confirmed, initial encounter (principal)

== ENCOUNTER 2017-12-07 10:42 | Emergency (ER) | payer MEDICAID ==
[~2017-12-07] VITALS: Ht 157.5 cm; Wt 116.4 kg
[2017-12-07 10:53] VITALS: BP 146/63; TEMP 99.3
[2017-12-07] MEDS ORDERED: AMOXICILLIN/CLA1 TA1 PO (11:25)
[2017-12-07] MEDS ORDERED: PREDNISONE20 MG PO (12:38)
[2017-12-07 12:50] VITALS: PULSE 95
[2017-12-08] MEDS ORDERED: ZEBETA 5MG5 MG PO (14:26)
== END 2017-12-07 12:51 | disposition home or self-care (01) ==
LOC: COL.ER 10:42
DX: J20.9 Acute bronchitis, unspecified (principal); J45.909 Unspecified asthma, uncomplicated; F17.210 Nicotine dependence, cigarettes, uncomplicated

== ENCOUNTER 2017-12-07 15:38 | Emergency (ER) | payer MEDICAID ==
[~2017-12-07] VITALS: Ht 157.5 cm; Wt 116.4 kg
[~2017-12-07 15:38] MED LIST changes: +AMOXICILLIN/CLA1 TA1 PO; +PREDNISONE20 MG PO
[2017-12-07 15:48] VITALS: BP 130/83; TEMP 98.6
[2017-12-07 16:34] LABS: BASO # 0.1 (0.0-0.2); BASO % 0.5 % (0.0-2.0); EOS # 0.6 (0.0-0.7); EOS % 4.8 % (0-4.0); GRAN # 6.3 (1.4-6.5); GRAN % 54.9 % (42.2-75.2); HEMATOCRIT 40.1 % (37.0-47.0); HEMOGLOBIN 13.4 g/dl (12.5-16.0); LYMPH # 3.8 (1.2-3.4); LYMPH % 33.5 % (20.0-51.0); MEAN CELL VOLUME 86 fl (80.0-100.0); MEAN CORPUSCULAR HEMOGLOBIN 29 pg (27.0-31.0); MEAN CORPUSCULAR HGB CONC 33 g/dl (33.0-37.0); MEAN PLATELET VOLUME 9.4 fl (7.4-10.4); MONO # 0.7 (0.1-0.6); PLATELET COUNT 354 K/mm3 (130-400); RED BLOOD COUNT 4.69 M/mm3 (4.10-5.30); REDCELL DISTRIBUTION WIDTH-CV 13.4 % (11.5-14.5)
[2017-12-07 16:44] LABS: ALANINE AMINOTRANSFERASE 40 U/L (9-52); ALKALINE PHOSPHATASE 96 U/L (50-136); ANION GAP 11 mmol/L (7-16); AST,SGOT 28 U/L (15-37); BILIRUBIN,TOTAL 0.2 mg/dL (0.0-1.0); BLOOD UREA NITROGEN 6 mg/dL (7-17); CALCIUM 9.2 mg/dL (8.4-10.2); CARBON DIOXIDE 23 mmol/L (22-30); CHLORIDE 106 mmol/L (98-107); CREATININE, serum 0.57 mg/dL (0.52-1.25); GLUCOSE 119 mg/dL (74-106); POTASSIUM 3.4 mmol/L (3.4-5.0); SODIUM 140 mmol/L (137-145); TOTAL PROTEIN 7.1 gm/dL (6.4-8.2)
[2017-12-07 16:45] LABS: ACETAMINOPHEN < 10 ug/mL (10-30); ALCOHOL(ethanol),MEDICAL < 10 mg/dL; SALICYLATE < 1.0 mg/dL
[2017-12-07 16:46] LABS: TRICYCLIC ANTIDEPRESS URINE NEGATIVE
[2017-12-07 18:50] VITALS: PULSE 104
[2017-12-08] MEDS ORDERED: ZEBETA 5MG5 MG PO (14:26)
== END 2017-12-07 18:50 | disposition home or self-care (01) ==
LOC: COL.ER 15:38
PROVIDERS: Emergency Medicine
DX: R45.851 Suicidal ideations (principal); F60.3 Borderline personality disorder

== ENCOUNTER 2017-12-08 13:56 | Emergency (ER) | payer MEDICAID ==
[~2017-12-08] VITALS: Ht 157.5 cm; Wt 116.4 kg
[2017-12-08] MEDS ORDERED: ZEBETA 5MG5 MG PO (14:26)
[2017-12-08 14:33] LABS: COLLECTION METHOD CLEAN CATCH
[2017-12-08 14:37] LABS: BASO # 0.1 (0.0-0.2); BASO % 0.6 % (0.0-2.0); EOS # 0.6 (0.0-0.7); EOS % 4.9 % (0-4.0); GRAN # 6.6 (1.4-6.5); GRAN % 55.7 % (42.2-75.2); HEMOGLOBIN 13.4 g/dl (12.5-16.0); LYMPH % 33.7 % (20.0-51.0); MEAN CELL VOLUME 85 fl (80.0-100.0); MEAN CORPUSCULAR HEMOGLOBIN 29 pg (27.0-31.0); MEAN CORPUSCULAR HGB CONC 34 g/dl (33.0-37.0); MONO # 0.6 (0.1-0.6); MONO % 4.7 % (1.7-9.3); PLATELET COUNT 347 K/mm3 (130-400); RED BLOOD COUNT 4.69 M/mm3 (4.10-5.30); REDCELL DISTRIBUTION WIDTH-CV 13.6 % (11.5-14.5)
[2017-12-08 14:45] LABS: MUCOUS Present /lpf; PH 5 (5-8); URINE APPEARANCE Hazy; URINE BACTERIA None Seen /hpf; URINE BILIRUBIN Negative (NEGATIVE); URINE BLOOD Negative (NEGATIVE); URINE COLOR Yellow; URINE GLUCOSE Negative (NEGATIVE); URINE KETONE Negative (NEGATIVE); URINE LEUKOCYTE ESTERASE Trace (NEGATIVE); URINE NITRATE Negative (NEGATIVE); URINE PROTEIN(semi-quant) Negative (NEGATIVE); URINE UROBILINOGEN Negative (NEGATIVE)
[2017-12-08 14:50] LABS: ALANINE AMINOTRANSFERASE 38 U/L (9-52); ALBUMIN 3.9 gm/dL (3.5-5.0); ALKALINE PHOSPHATASE 95 U/L (50-136); ANION GAP 10 mmol/L (7-16); AST,SGOT 24 U/L (15-37); BILIRUBIN,TOTAL 0.3 mg/dL (0.0-1.0); BLOOD UREA NITROGEN 7 mg/dL (7-17); CALCIUM 9.5 mg/dL (8.4-10.2); CARBON DIOXIDE 24 mmol/L (22-30); CHLORIDE 106 mmol/L (98-107); CREATININE, serum 0.53 mg/dL (0.52-1.25); GLUCOSE 140 mg/dL (74-106); POTASSIUM 3.5 mmol/L (3.4-5.0); SODIUM 140 mmol/L (137-145); TOTAL PROTEIN 6.9 gm/dL (6.4-8.2)
[2017-12-08 14:52] LABS: ALCOHOL(ethanol),MEDICAL < 10 mg/dL
[2017-12-08 14:52] LABS: TRICYCLIC ANTIDEPRESS URINE NEGATIVE
[2017-12-08 20:07] VITALS: TEMP 18
[2017-12-09 12:18] VITALS: BP 93/42; PULSE 109
== END 2017-12-09 12:20 | disposition home or self-care (01) ==
LOC: COL.ER 13:56
PROVIDERS: Family Medicine
DX: F32.9 Major depressive disorder, single episode, unspecified (principal)

== ENCOUNTER 2017-12-10 10:54 | Emergency (ER) | payer MEDICAID ==
[~2017-12-10] VITALS: Ht 157.5 cm; Wt 118.2 kg
[~2017-12-10 10:54] MED LIST changes: +ZEBETA 5MG5 MG PO
[2017-12-10 10:56] VITALS: TEMP 99
[2017-12-10 11:22] LABS: BASO # 0.1 (0.0-0.2); BASO % 0.6 % (0.0-2.0); EOS # 0.6 (0.0-0.7); EOS % 5.3 % (0-4.0); GRAN # 7.4 (1.4-6.5); GRAN % 60.6 % (42.2-75.2); HEMATOCRIT 40.1 % (37.0-47.0); HEMOGLOBIN 13.2 g/dl (12.5-16.0); LYMPH # 3.5 (1.2-3.4); LYMPH % 28.5 % (20.0-51.0); MEAN CELL VOLUME 86 fl (80.0-100.0); MEAN CORPUSCULAR HEMOGLOBIN 28 pg (27.0-31.0); MEAN CORPUSCULAR HGB CONC 33 g/dl (33.0-37.0); MEAN PLATELET VOLUME 9.1 fl (7.4-10.4); MONO # 0.6 (0.1-0.6); MONO % 4.5 % (1.7-9.3); PLATELET COUNT 359 K/mm3 (130-400); RED BLOOD COUNT 4.65 M/mm3 (4.10-5.30); REDCELL DISTRIBUTION WIDTH-CV 13.7 % (11.5-14.5)
[2017-12-10 11:33] LABS: ALANINE AMINOTRANSFERASE 34 U/L (9-52); ALBUMIN 3.9 gm/dL (3.5-5.0); ALKALINE PHOSPHATASE 101 U/L (50-136); ANION GAP 11 mmol/L (7-16); AST,SGOT 20 U/L (15-37); BILIRUBIN,TOTAL 0.2 mg/dL (0.0-1.0); BLOOD UREA NITROGEN 11 mg/dL (7-17); CALCIUM 9.7 mg/dL (8.4-10.2); CARBON DIOXIDE 23 mmol/L (22-30); CHLORIDE 104 mmol/L (98-107); CREATININE, serum 0.57 mg/dL (0.52-1.25); GLUCOSE 142 mg/dL (74-106); POTASSIUM 3.6 mmol/L (3.4-5.0); SODIUM 137 mmol/L (137-145)
[2017-12-10 11:37] LABS: ACETAMINOPHEN < 10 ug/mL (10-30); ALCOHOL(ethanol),MEDICAL < 10 mg/dL; SALICYLATE < 1.0 mg/dL
[2017-12-10 13:58] VITALS: BP 111/76; PULSE 99
== END 2017-12-10 14:00 | disposition home or self-care (01) ==
LOC: COL.ER 10:54
PROVIDERS: Emergency Medicine
DX: F32.9 Major depressive disorder, single episode, unspecified (principal); Z79.52 Long term (current) use of systemic steroids

== ENCOUNTER 2017-12-18 21:11 | Emergency (ER) | payer MEDICAID ==
[~2017-12-18] VITALS: Ht 157.5 cm; Wt 118.2 kg
[2017-12-18 21:17] VITALS: TEMP 97.8
[2017-12-18] MEDS ORDERED: FLEXERIL 1010 MG/TAB PO (21:51)
[2017-12-18 23:28] VITALS: BP 127/87; PULSE 84
== END 2017-12-18 23:35 | disposition home or self-care (01) ==
LOC: COL.ER 21:11
DX: S23.9XXA Sprain of unspecified parts of thorax, initial encounter (principal); S33.9XXA Sprain of unspecified parts of lumbar spine and pelvis, initial encounter; F31.9 Bipolar disorder, unspecified; E66.9 Obesity, unspecified; F60.3 Borderline personality disorder; E05.00 Thyrotoxicosis with diffuse goiter without thyrotoxic crisis or storm; Z98.890 Other specified postprocedural states; W18.40XA Slipping, tripping and stumbling without falling, unspecified, initial encounter
CPT/HCPCS: J1885; J2360

== ENCOUNTER 2017-12-20 22:08 | Emergency (ER) | payer MEDICAID ==
[~2017-12-20] VITALS: Ht 157.5 cm; Wt 118.2 kg
[2017-12-20 22:10] VITALS: TEMP 98.9
[2017-12-20 23:00] VITALS: BP 108/68; PULSE 131
== END 2017-12-20 23:00 | disposition home or self-care (01) ==
LOC: COL.ER 22:08
DX: S99.912A Unspecified injury of left ankle, initial encounter (principal); X50.0XXA Overexertion from strenuous movement or load, initial encounter; Y92.410 Unspecified street and highway as the place of occurrence of the external cause

== ENCOUNTER → 2018-01-01 | Outpatient (REF) | LOC: ZLAB.WCH 08:40 | DX: Z01.89 Encounter for other specified special examinations (principal) ==

== ENCOUNTER 2018-01-05 12:49 | Outpatient (RCR) | payer MEDICAID ==
[2018-01-08] MEDS ORDERED: ZEBETA 5MG5 MG PO (16:53)
[2018-02-10] MEDS ORDERED: BACTRIM DS 8001 TAB PO (14:30)
[2018-03-25] MEDS ORDERED: NORCO 325 MG-51 TAB PO (23:15)
== END 2018-04-05 | disposition home or self-care (01) ==
LOC: MKS.ESL.PT
DX: Z47.89 Encounter for other orthopedic aftercare (principal)

== ENCOUNTER 2018-01-08 15:53 | Emergency (ER) | payer MEDICAID ==
[~2018-01-08] VITALS: Ht 157.5 cm; Wt 120.9 kg
[2018-01-08 15:56] VITALS: BP 113/73; TEMP 98.4
[2018-01-08 16:25] LABS: BASO # 0.1 (0.0-0.2); BASO % 0.7 % (0.0-2.0); EOS # 0.4 (0.0-0.7); EOS % 3.6 % (0-4.0); GRAN # 7.2 (1.4-6.5); GRAN % 59.2 % (42.2-75.2); HEMATOCRIT 41.3 % (37.0-47.0); HEMOGLOBIN 13.7 g/dl (12.5-16.0); LYMPH # 3.9 (1.2-3.4); LYMPH % 31.5 % (20.0-51.0); MEAN CELL VOLUME 86 fl (80.0-100.0); MEAN CORPUSCULAR HEMOGLOBIN 28 pg (27.0-31.0); MEAN CORPUSCULAR HGB CONC 33 g/dl (33.0-37.0); MEAN PLATELET VOLUME 8.9 fl (7.4-10.4); MONO # 0.6 (0.1-0.6); MONO % 4.8 % (1.7-9.3); PLATELET COUNT 384 K/mm3 (130-400); RED BLOOD COUNT 4.82 M/mm3 (4.10-5.30); REDCELL DISTRIBUTION WIDTH-CV 13.6 % (11.5-14.5)
[2018-01-08 16:35] LABS: COLLECTION METHOD CLEAN CATCH
[2018-01-08 16:39] LABS: ALANINE AMINOTRANSFERASE 55 U/L (9-52); ALBUMIN 4.1 gm/dL (3.5-5.0); ALKALINE PHOSPHATASE 98 U/L (50-136); ANION GAP 11 mmol/L (7-16); AST,SGOT 32 U/L (15-37); BILIRUBIN,TOTAL 0.3 mg/dL (0.0-1.0); BLOOD UREA NITROGEN 10 mg/dL (7-17); CALCIUM 9.6 mg/dL (8.4-10.2); CARBON DIOXIDE 25 mmol/L (22-30); CHLORIDE 103 mmol/L (98-107); CREATININE, serum 0.61 mg/dL (0.52-1.25); GLUCOSE 88 mg/dL (74-106); POTASSIUM 3.7 mmol/L (3.4-5.0); SODIUM 139 mmol/L (137-145); TOTAL PROTEIN 7.4 gm/dL (6.4-8.2)
[2018-01-08 16:40] LABS: ACETAMINOPHEN < 10 ug/mL (10-30); ALCOHOL(ethanol),MEDICAL < 10 mg/dL; SALICYLATE < 1.0 mg/dL
[2018-01-08 16:43] LABS: MUCOUS Present /lpf; PH 5 (5-8); SQUAMOUS EPITHELIAL 0-2 /hpf; URINE APPEARANCE Clear; URINE BACTERIA None Seen /hpf; URINE BILIRUBIN Negative (NEGATIVE); URINE BLOOD Negative (NEGATIVE); URINE COLOR Yellow; URINE GLUCOSE Negative (NEGATIVE); URINE KETONE Negative (NEGATIVE); URINE LEUKOCYTE ESTERASE Negative (NEGATIVE); URINE NITRATE Negative (NEGATIVE); URINE PROTEIN(semi-quant) Negative (NEGATIVE); URINE RBC 0-2 /hpf; URINE UROBILINOGEN Negative (NEGATIVE)
[2018-01-08 16:52] LABS: TRICYCLIC ANTIDEPRESS URINE NEGATIVE
[2018-01-08] MEDS ORDERED: ZEBETA 5MG5 MG PO (16:53)
[2018-01-08 19:42] VITALS: PULSE 90
== END 2018-01-08 19:44 | disposition home or self-care (01) ==
LOC: COL.ER 15:53
PROVIDERS: Family Medicine
DX: F32.9 Major depressive disorder, single episode, unspecified (principal); Z87.891 Personal history of nicotine dependence; Z98.890 Other specified postprocedural states

== ENCOUNTER 2018-01-09 13:05 | Emergency (ER) | payer MEDICAID ==
[~2018-01-09] VITALS: Ht 157.5 cm; Wt 120.5 kg
[2018-01-09 13:15] VITALS: TEMP 99.2
[2018-01-09 13:39] LABS: COLLECTION METHOD CLEAN CATCH
[2018-01-09 13:52] LABS: MUCOUS Present /lpf; PH 6 (5-8); SQUAMOUS EPITHELIAL None Seen /hpf; URINE APPEARANCE Clear; URINE BACTERIA None Seen /hpf; URINE BILIRUBIN Negative (NEGATIVE); URINE BLOOD Negative (NEGATIVE); URINE COLOR Straw; URINE GLUCOSE Negative (NEGATIVE); URINE KETONE Negative (NEGATIVE); URINE LEUKOCYTE ESTERASE Negative (NEGATIVE); URINE NITRATE Negative (NEGATIVE); URINE PROTEIN(semi-quant) Negative (NEGATIVE); URINE RBC 0-2 /hpf; URINE UROBILINOGEN Negative (NEGATIVE)
[2018-01-09 13:59] LABS: TRICYCLIC ANTIDEPRESS URINE NEGATIVE
[2018-01-09 14:09] LABS: BASO # 0.1 (0.0-0.2); BASO % 0.6 % (0.0-2.0); EOS # 0.5 (0.0-0.7); EOS % 4.6 % (0-4.0); GRAN # 6.5 (1.4-6.5); GRAN % 59.4 % (42.2-75.2); HEMATOCRIT 41.7 % (37.0-47.0); HEMOGLOBIN 13.9 g/dl (12.5-16.0); LYMPH # 3.2 (1.2-3.4); LYMPH % 29.3 % (20.0-51.0); MEAN CELL VOLUME 86 fl (80.0-100.0); MEAN CORPUSCULAR HEMOGLOBIN 29 pg (27.0-31.0); MEAN CORPUSCULAR HGB CONC 33 g/dl (33.0-37.0); MEAN PLATELET VOLUME 9.2 fl (7.4-10.4); MONO # 0.6 (0.1-0.6); MONO % 5.6 % (1.7-9.3); PLATELET COUNT 387 K/mm3 (130-400); RED BLOOD COUNT 4.85 M/mm3 (4.10-5.30); REDCELL DISTRIBUTION WIDTH-CV 13.6 % (11.5-14.5)
[2018-01-09 14:26] LABS: ALANINE AMINOTRANSFERASE 48 U/L (9-52); ALKALINE PHOSPHATASE 96 U/L (50-136); ANION GAP 11 mmol/L (7-16); AST,SGOT 37 U/L (15-37); BILIRUBIN,TOTAL 0.3 mg/dL (0.0-1.0); BLOOD UREA NITROGEN 9 mg/dL (7-17); CALCIUM 9.2 mg/dL (8.4-10.2); CARBON DIOXIDE 27 mmol/L (22-30); CHLORIDE 102 mmol/L (98-107); CREATININE, serum 0.58 mg/dL (0.52-1.25); GLUCOSE 104 mg/dL (74-106); POTASSIUM 3.6 mmol/L (3.4-5.0); SODIUM 140 mmol/L (137-145); TOTAL PROTEIN 7.3 gm/dL (6.4-8.2)
[2018-01-09 14:27] LABS: ACETAMINOPHEN < 10 ug/mL (10-30); ALCOHOL(ethanol),MEDICAL < 10 mg/dL; SALICYLATE < 1.0 mg/dL
[2018-01-09 21:44] VITALS: BP 100/63; PULSE 98
== END 2018-01-09 21:44 | disposition home or self-care (01) ==
LOC: COL.ER 13:05
PROVIDERS: Emergency Medicine
DX: F32.9 Major depressive disorder, single episode, unspecified (principal); R45.851 Suicidal ideations; F17.210 Nicotine dependence, cigarettes, uncomplicated; F41.9 Anxiety disorder, unspecified

== ENCOUNTER → 2018-01-13 | Outpatient (REF) | LOC: ZLAB.WCH 16:16 | DX: Z01.89 Encounter for other specified special examinations (principal) ==

== ENCOUNTER 2018-01-21 16:05 | Emergency (ER) | payer MEDICAID ==
[~2018-01-21] VITALS: Ht 157.5 cm; Wt 120.9 kg
[2018-01-21 16:10] VITALS: TEMP 99.5
[2018-01-21 17:00] LABS: BASO # 0.1 (0.0-0.2); BASO % 0.5 % (0.0-2.0); EOS # 0.3 (0.0-0.7); EOS % 3.2 % (0-4.0); GRAN # 6.1 (1.4-6.5); GRAN % 59.1 % (42.2-75.2); HEMATOCRIT 39.3 % (37.0-47.0); HEMOGLOBIN 13.1 g/dl (12.5-16.0); LYMPH # 3.3 (1.2-3.4); LYMPH % 32.5 % (20.0-51.0); MEAN CELL VOLUME 85 fl (80.0-100.0); MEAN CORPUSCULAR HEMOGLOBIN 28 pg (27.0-31.0); MEAN CORPUSCULAR HGB CONC 33 g/dl (33.0-37.0); MEAN PLATELET VOLUME 9.1 fl (7.4-10.4); MONO # 0.5 (0.1-0.6); MONO % 4.5 % (1.7-9.3); PLATELET COUNT 359 K/mm3 (130-400); RED BLOOD COUNT 4.62 M/mm3 (4.10-5.30); REDCELL DISTRIBUTION WIDTH-CV 13.6 % (11.5-14.5)
[2018-01-21 17:20] LABS: ALANINE AMINOTRANSFERASE 27 U/L (9-52); ALBUMIN 3.9 gm/dL (3.5-5.0); ALKALINE PHOSPHATASE 79 U/L (50-136); ANION GAP 9 mmol/L (7-16); AST,SGOT 27 U/L (15-37); BILIRUBIN,TOTAL 0.5 mg/dL (0.0-1.0); BLOOD UREA NITROGEN 6 mg/dL (7-17); CARBON DIOXIDE 22 mmol/L (22-30); CHLORIDE 106 mmol/L (98-107); CREATININE, serum 0.54 mg/dL (0.52-1.25); GLUCOSE 92 mg/dL (74-106); POTASSIUM 3.5 mmol/L (3.4-5.0); SODIUM 137 mmol/L (137-145)
[2018-01-21 17:22] LABS: ACETAMINOPHEN < 10 ug/mL (10-30); SALICYLATE < 1.0 mg/dL
[2018-01-21 17:22] LABS: TRICYCLIC ANTIDEPRESS URINE NEGATIVE
[2018-01-21 17:23] LABS: ALCOHOL(ethanol),MEDICAL < 10 mg/dL
[2018-01-21 20:28] VITALS: BP 122/72; PULSE 86
== END 2018-01-21 20:35 ==
LOC: COL.ER 16:05
PROVIDERS: Nurse Practitioner Primary Care
DX: R45.851 Suicidal ideations (principal); F32.9 Major depressive disorder, single episode, unspecified; I10 Essential (primary) hypertension; E03.9 Hypothyroidism, unspecified; F17.210 Nicotine dependence, cigarettes, uncomplicated

== ENCOUNTER → 2018-02-02 | Outpatient (CLI) | payer MEDICAID | LOC: COL.RAD 15:08 | DX: T18.9XXA Foreign body of alimentary tract, part unspecified, initial encounter (principal) ==

== ENCOUNTER 2018-02-10 12:25 | Emergency (ER) | payer MEDICAID ==
[~2018-02-10] VITALS: Ht 157.5 cm; Wt 119.5 kg
[2018-02-10 12:26] VITALS: BP 135/66
[2018-02-10 12:54] LABS: BASO # 0.1 (0.0-0.2); BASO % 0.6 % (0.0-2.0); EOS # 0.4 (0.0-0.7); EOS % 3.9 % (0-4.0); GRAN % 59.2 % (42.2-75.2); HEMATOCRIT 38.9 % (37.0-47.0); HEMOGLOBIN 12.9 g/dl (12.5-16.0); LYMPH # 3.2 (1.2-3.4); LYMPH % 31.8 % (20.0-51.0); MEAN CELL VOLUME 86 fl (80.0-100.0); MEAN CORPUSCULAR HEMOGLOBIN 28 pg (27.0-31.0); MEAN CORPUSCULAR HGB CONC 33 g/dl (33.0-37.0); MEAN PLATELET VOLUME 9.3 fl (7.4-10.4); MONO # 0.4 (0.1-0.6); MONO % 3.9 % (1.7-9.3); PLATELET COUNT 331 K/mm3 (130-400); RED BLOOD COUNT 4.54 M/mm3 (4.10-5.30); REDCELL DISTRIBUTION WIDTH-CV 13.6 % (11.5-14.5)
[2018-02-10 13:10] LABS: COLLECTION METHOD CLEAN CATCH
[2018-02-10 13:26] LABS: MUCOUS Present /lpf; PH 5 (5-8); URINE APPEARANCE Cloudy; URINE BACTERIA Rare /hpf; URINE BILIRUBIN Negative (NEGATIVE); URINE BLOOD Negative (NEGATIVE); URINE COLOR Yellow; URINE GLUCOSE Negative (NEGATIVE); URINE KETONE Negative (NEGATIVE); URINE LEUKOCYTE ESTERASE Trace (NEGATIVE); URINE NITRATE Positive (NEGATIVE); URINE PROTEIN(semi-quant) Negative (NEGATIVE); URINE RBC 0-2 /hpf; URINE UROBILINOGEN Negative (NEGATIVE)
[2018-02-10] MEDS ORDERED: BACTRIM DS 8001 TAB PO (14:30)
[2018-02-10 14:37] VITALS: PULSE 109; TEMP 97.5
== END 2018-02-10 14:37 | disposition home or self-care (01) ==
LOC: COL.ER 12:25
PROVIDERS: Family Medicine
DX: T18.3XXA Foreign body in small intestine, initial encounter (principal); N30.00 Acute cystitis without hematuria; F32.9 Major depressive disorder, single episode, unspecified; F41.9 Anxiety disorder, unspecified
CPT/HCPCS: J0696

== ENCOUNTER → 2018-03-20 | Outpatient (CLI) | payer MEDICAID ==
[~2018-03-20] MED LIST changes: +BACTRIM DS 8001 TAB PO
[2018-03-20 17:12] LABS: COLLECTION METHOD CLEAN CATCH
[2018-03-20 17:22] LABS: MUCOUS Present /lpf; PH 5 (5-8); SQUAMOUS EPITHELIAL 0-2 /hpf; URINE APPEARANCE Clear; URINE BACTERIA None Seen /hpf; URINE BILIRUBIN Negative (NEGATIVE); URINE BLOOD Negative (NEGATIVE); URINE COLOR Yellow; URINE GLUCOSE Negative (NEGATIVE); URINE KETONE Negative (NEGATIVE); URINE LEUKOCYTE ESTERASE Negative (NEGATIVE); URINE NITRATE Negative (NEGATIVE); URINE PROTEIN(semi-quant) Negative (NEGATIVE); URINE RBC None Seen /hpf; URINE UROBILINOGEN Negative (NEGATIVE)
== END ==
LOC: ZCOL.LAB 17:09
PROVIDERS: Family Medicine
DX: R35.0 Frequency of micturition (principal)

== ENCOUNTER 2018-03-25 22:58 | Observation (INO) | payer MEDICAID ==
[2018-03-25] VITALS (8 sets, daily range): BP systolic 103–108; BP diastolic 74; PULSE 85–100; TEMP 98.3; O2SAT 96–97
[~2018-03-25] VITALS: Ht 157.5 cm; Wt 115.4 kg
[2018-03-25] MEDS ORDERED: NORCO 325 MG-51 TAB PO (23:15)
[2018-03-26] VITALS (11 sets, daily range): BP systolic 98–114; BP diastolic 54–88; PULSE 71–105; TEMP 97.8–98.3
[2018-03-26 05:36] LABS: BASO # 0.1 (0.0-0.2); BASO % 0.9 % (0.0-2.0); EOS # 0.2 (0.0-0.7); EOS % 1.9 % (0-4.0); GRAN # 3.8 (1.4-6.5); GRAN % 41.7 % (42.2-75.2); HEMATOCRIT 42.4 % (37.0-47.0); HEMOGLOBIN 13.8 g/dl (12.5-16.0); LYMPH # 4.3 (1.2-3.4); LYMPH % 46.6 % (20.0-51.0); MEAN CELL VOLUME 88 fl (80.0-100.0); MEAN CORPUSCULAR HEMOGLOBIN 29 pg (27.0-31.0); MEAN CORPUSCULAR HGB CONC 33 g/dl (33.0-37.0); MEAN PLATELET VOLUME 9.4 fl (7.4-10.4); MONO # 0.8 (0.1-0.6); MONO % 8.6 % (1.7-9.3); PLATELET COUNT 366 K/mm3 (130-400); RED BLOOD COUNT 4.84 M/mm3 (4.10-5.30); REDCELL DISTRIBUTION WIDTH-CV 14.2 % (11.5-14.5)
[2018-03-26 05:48] LABS: CREATININE, serum 0.86 mg/dL (0.52-1.25); POTASSIUM 4.1 mmol/L (3.4-5.0)
[2018-03-26 09:03] LABS: TRICYCLIC ANTIDEPRESS URINE NEGATIVE
== END 2018-03-26 15:30 | disposition home or self-care (01) ==
LOC: ICU 22:58
PROVIDERS: Nurse Practitioner
DX: T39.312A Poisoning by propionic acid derivatives, intentional self-harm, initial encounter (principal); F32.9 Major depressive disorder, single episode, unspecified; F41.9 Anxiety disorder, unspecified; F20.9 Schizophrenia, unspecified; J45.909 Unspecified asthma, uncomplicated; F17.210 Nicotine dependence, cigarettes, uncomplicated; Z90.49 Acquired absence of other specified parts of digestive tract; Z88.7 Allergy status to serum and vaccine; Z91.013 Allergy to seafood; Z88.8 Allergy status to other drugs, medicaments and biological substances; Z81.8 Family history of other mental and behavioral disorders
CPT/HCPCS: J2405; J7030

== ENCOUNTER → 2018-03-25 | Outpatient (REF) | LOC: ZLAB.WCH 15:55 | DX: Z01.89 Encounter for other specified special examinations (principal) ==

== ENCOUNTER → 2018-04-11 | Outpatient (REF) | LOC: ZLAB.WCH 11:39 | DX: Z01.89 Encounter for other specified special examinations (principal) ==

== ENCOUNTER 2018-04-15 16:45 | Emergency (ER) | payer MEDICAID ==
[~2018-04-15] VITALS: Ht 157.5 cm; Wt 115.9 kg
[2018-04-15 16:49] VITALS: TEMP 98.8
[2018-04-15] MEDS ORDERED: FLAGYL500 MG PO (17:21)
[2018-04-15] MEDS ORDERED: MONODOX100 PO (17:21)
[2018-04-15] MEDS ORDERED: PRILOSEC 20MG20 MG PO (17:21)
[2018-04-15] MEDS ORDERED: ZEBETA 5MG5 MG PO (17:21)
[2018-04-15] MEDS ORDERED: IPRATROPIUM BROM3 M1 IH (17:22)
[2018-04-15 17:49] LABS: HEMOGLOBIN 14.5 g/dl (12.5-16.0); RED BLOOD COUNT 5.05 M/mm3 (4.10-5.30)
[2018-04-15 17:50] LABS: BASO # 0.1 (0.0-0.2); BASO % 0.7 % (0.0-2.0); EOS # 0.4 (0.0-0.7); EOS % 3.6 % (0-4.0); GRAN # 6.2 (1.4-6.5); GRAN % 55.4 % (42.2-75.2); HEMATOCRIT 43.4 % (37.0-47.0); LYMPH # 3.9 (1.2-3.4); LYMPH % 34.7 % (20.0-51.0); MEAN CELL VOLUME 86 fl (80.0-100.0); MEAN CORPUSCULAR HEMOGLOBIN 29 pg (27.0-31.0); MEAN CORPUSCULAR HGB CONC 33 g/dl (33.0-37.0); MEAN PLATELET VOLUME 9.3 fl (7.4-10.4); MONO # 0.6 (0.1-0.6); MONO % 5.2 % (1.7-9.3); PLATELET COUNT 395 K/mm3 (130-400); REDCELL DISTRIBUTION WIDTH-CV 14.3 % (11.5-14.5)
[2018-04-15 18:01] LABS: ALANINE AMINOTRANSFERASE 45 U/L (9-52); ALBUMIN 4.1 gm/dL (3.5-5.0); ALKALINE PHOSPHATASE 90 U/L (50-136); ANION GAP 5 mmol/L (7-16); AST,SGOT 22 U/L (15-37); BILIRUBIN,TOTAL 0.2 mg/dL (0.0-1.0); BLOOD UREA NITROGEN 12 mg/dL (7-17); CALCIUM 9.7 mg/dL (8.4-10.2); CARBON DIOXIDE 30 mmol/L (22-30); CHLORIDE 108 mmol/L (98-107); CREATININE, serum 0.69 mg/dL (0.52-1.25); GLUCOSE 111 mg/dL (74-106); POTASSIUM 3.8 mmol/L (3.4-5.0); SODIUM 143 mmol/L (137-145); TOTAL PROTEIN 7.3 gm/dL (6.4-8.2)
[2018-04-15 18:04] LABS: ACETAMINOPHEN < 10 ug/mL (10-30); ALCOHOL(ethanol),MEDICAL < 10 mg/dL; SALICYLATE < 1.0 mg/dL
[2018-04-15 18:48] LABS: COLLECTION METHOD CLEAN CATCH
[2018-04-15 18:53] LABS: MUCOUS Present /lpf; PH 6 (5-8); SQUAMOUS EPITHELIAL 0-2 /hpf; URINE APPEARANCE Clear; URINE BACTERIA None Seen /hpf; URINE BILIRUBIN Negative (NEGATIVE); URINE BLOOD Negative (NEGATIVE); URINE COLOR Yellow; URINE GLUCOSE Negative (NEGATIVE); URINE KETONE Negative (NEGATIVE); URINE LEUKOCYTE ESTERASE Negative (NEGATIVE); URINE NITRATE Negative (NEGATIVE); URINE PROTEIN(semi-quant) Negative (NEGATIVE); URINE RBC 0-2 /hpf; URINE UROBILINOGEN Negative (NEGATIVE)
[2018-04-15 19:01] LABS: TRICYCLIC ANTIDEPRESS URINE NEGATIVE
[2018-04-15] MEDS ORDERED: ATARAX50 MG PO (20:12)
[2018-04-15 20:59] VITALS: BP 131/83; PULSE 109
== END 2018-04-15 21:00 | disposition home or self-care (01) ==
LOC: COL.ER 16:45
PROVIDERS: Physician Assistant
DX: F41.9 Anxiety disorder, unspecified (principal); F32.9 Major depressive disorder, single episode, unspecified; T76.21XA Adult sexual abuse, suspected, initial encounter; J45.909 Unspecified asthma, uncomplicated; F17.210 Nicotine dependence, cigarettes, uncomplicated

== ENCOUNTER → 2018-04-16 | Emergency (ER) | payer MEDICAID ==
[~2018-04-16] VITALS: Ht 157.5 cm; Wt 115.9 kg
[~2018-04-16] MED LIST changes: +IPRATROPIUM BROM3 M1 IH; +MONODOX100 PO
[2018-04-16 18:44] VITALS: TEMP 99.2
[2018-04-16 19:45] VITALS: BP 117/78
[2018-04-16 21:15] VITALS: PULSE 125
== END ==
LOC: COL.ER 18:44
DX: J45.901 Unspecified asthma with (acute) exacerbation (principal); I10 Essential (primary) hypertension; J45.909 Unspecified asthma, uncomplicated; F31.9 Bipolar disorder, unspecified; F43.10 Post-traumatic stress disorder, unspecified; F17.210 Nicotine dependence, cigarettes, uncomplicated
CPT/HCPCS: J8540

== ENCOUNTER 2018-04-20 13:31 | Emergency (ER) | payer MEDICAID ==
[~2018-04-20] VITALS: Ht 157.5 cm; Wt 118.2 kg
[2018-04-20 13:36] VITALS: TEMP 98.9
[2018-04-20 13:59] LABS: COLLECTION METHOD CLEAN CATCH
[2018-04-20 14:21] LABS: MUCOUS Present /lpf; PH 5 (5-8); URINE APPEARANCE Clear; URINE BACTERIA None Seen /hpf; URINE BILIRUBIN Negative (NEGATIVE); URINE BLOOD Negative (NEGATIVE); URINE COLOR Yellow; URINE GLUCOSE Negative (NEGATIVE); URINE KETONE Negative (NEGATIVE); URINE LEUKOCYTE ESTERASE Negative (NEGATIVE); URINE NITRATE Negative (NEGATIVE); URINE PROTEIN(semi-quant) Negative (NEGATIVE); URINE RBC 0-2 /hpf; URINE UROBILINOGEN Negative (NEGATIVE)
[2018-04-20 14:38] LABS: TRICYCLIC ANTIDEPRESS URINE NEGATIVE
[2018-04-20 14:39] LABS: BASO # 0.1 (0.0-0.2); BASO % 0.5 % (0.0-2.0); EOS # 0.5 (0.0-0.7); EOS % 3.7 % (0-4.0); GRAN # 7.6 (1.4-6.5); GRAN % 59.2 % (42.2-75.2); LYMPH % 30.9 % (20.0-51.0); MEAN CELL VOLUME 86 fl (80.0-100.0); MEAN CORPUSCULAR HEMOGLOBIN 29 pg (27.0-31.0); MEAN CORPUSCULAR HGB CONC 33 g/dl (33.0-37.0); MEAN PLATELET VOLUME 9.4 fl (7.4-10.4); MONO # 0.7 (0.1-0.6); MONO % 5.4 % (1.7-9.3); PLATELET COUNT 390 K/mm3 (130-400); RED BLOOD COUNT 4.91 M/mm3 (4.10-5.30); REDCELL DISTRIBUTION WIDTH-CV 14.6 % (11.5-14.5)
[2018-04-20 14:44] LABS: ALANINE AMINOTRANSFERASE 36 U/L (9-52); ALBUMIN 3.7 gm/dL (3.5-5.0); ALKALINE PHOSPHATASE 76 U/L (50-136); ANION GAP 6 mmol/L (7-16); AST,SGOT 26 U/L (15-37); BILIRUBIN,TOTAL 0.4 mg/dL (0.0-1.0); BLOOD UREA NITROGEN 10 mg/dL (7-17); CALCIUM 9.6 mg/dL (8.4-10.2); CARBON DIOXIDE 25 mmol/L (22-30); CHLORIDE 109 mmol/L (98-107); CREATININE, serum 0.56 mg/dL (0.52-1.25); GLUCOSE 125 mg/dL (74-106); POTASSIUM 3.7 mmol/L (3.4-5.0); SODIUM 140 mmol/L (137-145); TOTAL PROTEIN 6.8 gm/dL (6.4-8.2)
[2018-04-20 14:46] LABS: ACETAMINOPHEN < 10 ug/mL (10-30); ALCOHOL(ethanol),MEDICAL < 10 mg/dL; SALICYLATE < 1.0 mg/dL
[2018-04-20 15:18] VITALS: BP 130/82; PULSE 100
== END 2018-04-20 15:19 | disposition home or self-care (01) ==
LOC: COL.ER 13:31
PROVIDERS: Physician Assistant
DX: F20.9 Schizophrenia, unspecified (principal); F43.10 Post-traumatic stress disorder, unspecified; F12.90 Cannabis use, unspecified, uncomplicated; F17.210 Nicotine dependence, cigarettes, uncomplicated; T76.21XA Adult sexual abuse, suspected, initial encounter

== ENCOUNTER 2018-04-20 17:43 | Emergency (ER) | payer MEDICAID ==
[~2018-04-20] VITALS: Ht 157.5 cm; Wt 114.5 kg
[2018-04-20 17:47] VITALS: TEMP 98.9
[2018-04-20 18:46] LABS: BASO # 0.1 (0.0-0.2); BASO % 0.5 % (0.0-2.0); EOS # 0.4 (0.0-0.7); EOS % 3.3 % (0-4.0); GRAN # 7.4 (1.4-6.5); GRAN % 58.3 % (42.2-75.2); HEMATOCRIT 44.8 % (37.0-47.0); HEMOGLOBIN 15.1 g/dl (12.5-16.0); LYMPH # 4.2 (1.2-3.4); LYMPH % 32.9 % (20.0-51.0); MEAN CELL VOLUME 85 fl (80.0-100.0); MEAN CORPUSCULAR HEMOGLOBIN 29 pg (27.0-31.0); MEAN CORPUSCULAR HGB CONC 34 g/dl (33.0-37.0); MEAN PLATELET VOLUME 9.7 fl (7.4-10.4); MONO # 0.6 (0.1-0.6); MONO % 4.6 % (1.7-9.3); RED BLOOD COUNT 5.29 M/mm3 (4.10-5.30); REDCELL DISTRIBUTION WIDTH-CV 14.6 % (11.5-14.5)
[2018-04-20 18:49] LABS: PLATELET COUNT 256 K/mm3 (130-400)
[2018-04-20 18:58] LABS: ALANINE AMINOTRANSFERASE 39 U/L (9-52); ALKALINE PHOSPHATASE 83 U/L (50-136); ANION GAP 7 mmol/L (7-16); AST,SGOT 30 U/L (15-37); BILIRUBIN,TOTAL 0.4 mg/dL (0.0-1.0); BLOOD UREA NITROGEN 12 mg/dL (7-17); CALCIUM 9.7 mg/dL (8.4-10.2); CARBON DIOXIDE 25 mmol/L (22-30); CHLORIDE 109 mmol/L (98-107); CREATININE, serum 0.62 mg/dL (0.52-1.25); GLUCOSE 99 mg/dL (74-106); POTASSIUM 4.3 mmol/L (3.4-5.0); SODIUM 141 mmol/L (137-145); TOTAL PROTEIN 7.3 gm/dL (6.4-8.2)
[2018-04-20 19:00] LABS: ACETAMINOPHEN < 10 ug/mL (10-30); ALCOHOL(ethanol),MEDICAL < 10 mg/dL; SALICYLATE < 1.0 mg/dL
[2018-04-20 19:30] LABS: TRICYCLIC ANTIDEPRESS URINE NEGATIVE
[2018-04-20 23:11] VITALS: BP 124/69; PULSE 112
== END 2018-04-20 23:13 | disposition home or self-care (01) ==
LOC: COL.ER 17:43
PROVIDERS: Nurse Practitioner
DX: R45.851 Suicidal ideations (principal); F32.9 Major depressive disorder, single episode, unspecified; F20.9 Schizophrenia, unspecified; I10 Essential (primary) hypertension; T18.9XXA Foreign body of alimentary tract, part unspecified, initial encounter; J45.909 Unspecified asthma, uncomplicated; F43.10 Post-traumatic stress disorder, unspecified; F17.210 Nicotine dependence, cigarettes, uncomplicated

== ENCOUNTER → 2018-04-30 | Outpatient (REF) | LOC: ZLAB.WCH 09:56 | DX: Z01.89 Encounter for other specified special examinations (principal) ==

== ENCOUNTER 2018-05-04 10:05 | Inpatient (IN) | payer MEDICAID ==
[2018-05-04] VITALS (715 sets, daily range): BP systolic 104–129; BP diastolic 66–92; PULSE 84–103; TEMP 99.1–99.3; O2SAT 90–100
[~2018-05-04] VITALS: Ht 157.5 cm; Wt 115.1 kg
[2018-05-04 12:32] LABS: HEMATOCRIT 47.4 % (37.0-47.0); HEMOGLOBIN 16.1 g/dl (12.5-16.0); MEAN CELL VOLUME 85 fl (80.0-100.0); MEAN CORPUSCULAR HEMOGLOBIN 29 pg (27.0-31.0); MEAN CORPUSCULAR HGB CONC 34 g/dl (33.0-37.0); MEAN PLATELET VOLUME 9.2 fl (7.4-10.4); PLATELET COUNT 388 K/mm3 (130-400); REDCELL DISTRIBUTION WIDTH-CV 14.3 % (11.5-14.5)
[2018-05-04 12:44] LABS: ALBUMIN 4.3 gm/dL (3.5-5.0); BILIRUBIN,TOTAL 0.4 mg/dL (0.0-1.0); CALCIUM 9.9 mg/dL (8.4-10.2); CREATININE, serum 0.53 mg/dL (0.52-1.25); MAGNESIUM 2.2 mg/dL (1.6-2.3); POTASSIUM 4.1 mmol/L (3.4-5.0); TOTAL PROTEIN 7.7 gm/dL (6.4-8.2)
[2018-05-04 13:04] LABS: INR 1.1 (0.8-3.0); PROTHROMBIN TIME 12.6 SECONDS (9.7-12.8)
[2018-05-04 14:05] LABS: BAND 12 % (0-10); LYMPHOCYTE 16 % (20.0-51.0); NEUTROPHILS 72 % (42.0-75.2)
[2018-05-04 14:06] LABS: PLATELET ESTIMATE NORMAL (NORMAL)
[2018-05-05] VITALS (830 sets, daily range): BP systolic 103–119; BP diastolic 61–78; PULSE 71–106; TEMP 97.2–99.3; O2SAT 83–100
[2018-05-05 07:33] LABS: ALANINE AMINOTRANSFERASE 33 U/L (9-52); ALBUMIN 3.4 gm/dL (3.5-5.0); ALKALINE PHOSPHATASE 79 U/L (50-136); ANION GAP 4 mmol/L (7-16); AST,SGOT 20 U/L (15-37); BILIRUBIN,TOTAL 0.1 mg/dL (0.0-1.0); BLOOD UREA NITROGEN 10 mg/dL (7-17); CALCIUM 9.5 mg/dL (8.4-10.2); CARBON DIOXIDE 28 mmol/L (22-30); CHLORIDE 110 mmol/L (98-107); CREATININE, serum 0.61 mg/dL (0.52-1.25); GLUCOSE 118 mg/dL (74-106); POTASSIUM 3.5 mmol/L (3.4-5.0); SODIUM 141 mmol/L (137-145); TOTAL PROTEIN 6.2 gm/dL (6.4-8.2)
[2018-05-05 07:41] LABS: ACETAMINOPHEN < 10 ug/mL (10-30)
[2018-05-05 09:08] LABS: PROTHROMBIN TIME 11.3 SECONDS (9.7-12.8)
[2018-05-06 00:55] VITALS: BP 102/47; PULSE 100; TEMP 98.2
[2018-05-06 04:00] VITALS: BP 116/60; PULSE 92; TEMP 98
[2018-05-06 07:14] VITALS: BP 104/50; PULSE 83; TEMP 97.8
[2018-05-06 07:27] LABS: ALANINE AMINOTRANSFERASE 31 U/L (9-52); ALBUMIN 3.3 gm/dL (3.5-5.0); ALKALINE PHOSPHATASE 75 U/L (50-136); ANION GAP 4 mmol/L (7-16); AST,SGOT 20 U/L (15-37); BILIRUBIN,TOTAL < 0.1 mg/dL (0.0-1.0); BLOOD UREA NITROGEN 11 mg/dL (7-17); CALCIUM 9.1 mg/dL (8.4-10.2); CARBON DIOXIDE 27 mmol/L (22-30); CHLORIDE 111 mmol/L (98-107); GLUCOSE 85 mg/dL (74-106); MAGNESIUM 1.9 mg/dL (1.6-2.3); POTASSIUM 3.8 mmol/L (3.4-5.0); SODIUM 142 mmol/L (137-145)
== END 2018-05-06 12:05 | disposition home or self-care (01) | DRG 918 ==
LOC: ICU 10:05 → MEDICAL 05-05 19:38
PROVIDERS: Internal Medicine
DX: T39.1X2A Poisoning by 4-Aminophenol derivatives, intentional self-harm, initial encounter (principal); F25.0 Schizoaffective disorder, bipolar type; F41.9 Anxiety disorder, unspecified; F17.210 Nicotine dependence, cigarettes, uncomplicated; F60.3 Borderline personality disorder; J45.909 Unspecified asthma, uncomplicated; F43.10 Post-traumatic stress disorder, unspecified; F79 Unspecified intellectual disabilities
CPT/HCPCS: 99223-AI; 99232-AI; J0132; J1200; J2405; J7030; J7070

== ENCOUNTER 2018-05-22 06:33 | Day surgery (SDC) | payer MEDICAID ==
[2018-05-22] VITALS (7 sets, daily range): BP systolic 109–123; BP diastolic 46–73; PULSE 65–96; TEMP 98–98.3
[~2018-05-22] VITALS: Ht 157.5 cm; Wt 116.8 kg
--- NOTE | 2018-05-22 12:19 | NUR ---
equipment worker met with patient and arranged [facility] as patient contacted them on 05/21/18 to arrange services. Worker gave [facility] a referral for longterm for dressing changes and physical therapy. Worker faxed orders and clinical information. Worker notified [facility] of the above information. Patient will discharge home with home health for longterm and physical therapy.
--- NOTE | 2018-05-22 12:20 | NUR ---
Resting without complaints and IROM brace on. Noah wrap dressing dry.
--- NOTE | 2018-05-22 12:22 | NUR ---
Rated pain at 8/10 and medicated with Oxycodone 10mg po.
--- NOTE | 2018-05-22 12:35 | NUR ---
Drinking apple juice.
--- NOTE | 2018-05-22 12:50 | NUR ---
Room air sats 96%. Resting and ice maintained on the left knee.
--- NOTE | 2018-05-22 13:05 | NUR ---
Up with physical therapy and reinforced crutch walking and transferring.
--- NOTE | 2018-05-22 13:20 | NUR ---
Resting without any complaints of pain or nausea at the present time.
--- NOTE | 2018-05-22 14:20 | NUR ---
Talking on phone.
[2018-05-22] MEDS ORDERED: ROXICODONE 55 MG/TAB PO (14:23)
[2018-05-22] MEDS ORDERED: NORCO 325 MG-7.1 TAB PO (14:24)
--- NOTE | 2018-05-22 14:30 | NUR ---
Again assisted up to the bathroom and transfers self with standby assist with use of crutches. Returns to room and IV discontinued. Patient dresses self. Given dismissal instructions to both the patient and Sandra who will be driving the patient home and getting scripts filled for the patient. All questions answered. Sent home with aquacel dressings x4.
--- NOTE | 2018-05-22 14:55 | NUR ---
Patient dismissed to home per private vehicle and taken to the front door per wheelchair and assisted into car. IROM brace on the left knee and lopez wrap dressing clean and dry on the left knee.
== END 2018-05-22 14:55 | disposition home or self-care (01) ==
LOC: SDCO 06:33
DX: M25.362 Other instability, left knee (principal); S83.005D Unspecified dislocation of left patella, subsequent encounter; M94.262 Chondromalacia, left knee; J45.909 Unspecified asthma, uncomplicated; F32.9 Major depressive disorder, single episode, unspecified; I10 Essential (primary) hypertension; K21.9 Gastro-esophageal reflux disease without esophagitis; E05.00 Thyrotoxicosis with diffuse goiter without thyrotoxic crisis or storm; R33.9 Retention of urine, unspecified; F41.9 Anxiety disorder, unspecified; F43.10 Post-traumatic stress disorder, unspecified; F29 Unspecified psychosis not due to a substance or known physiological condition; Z91.5 Personal history of self-harm; F17.210 Nicotine dependence, cigarettes, uncomplicated
CPT/HCPCS: C1713; G8978-GP; G8979-GP; J0171; J0690; J1100; J1170; J1885; J2250; J2405; J2704; J3010; J7120; L1832

== ENCOUNTER 2018-05-22 22:44 | Emergency (ER) | payer MEDICAID ==
[~2018-05-22] VITALS: Ht 157.5 cm; Wt 118.2 kg
[~2018-05-22 22:44] MED LIST changes: +ROXICODONE 55 MG/TAB PO
[2018-05-22 22:46] VITALS: TEMP 99.1
[2018-05-22 23:43] VITALS: BP 127/73; PULSE 81
== END 2018-05-23 00:49 | disposition home or self-care (01) ==
LOC: COL.ER 22:44
DX: M25.562 Pain in left knee (principal); F31.9 Bipolar disorder, unspecified
CPT/HCPCS: J1170

== ENCOUNTER → 2018-05-30 | Outpatient (REF) | LOC: ZLAB.WCH 14:29 | DX: Z01.89 Encounter for other specified special examinations (principal) ==

== ENCOUNTER 2018-05-31 15:20 | Emergency (ER) | payer MEDICAID ==
[~2018-05-31] VITALS: Ht 160 cm; Wt 118.2 kg
[2018-05-31 15:25] VITALS: BP 124/74; PULSE 112; TEMP 99.5
[2018-05-31 17:54] LABS: BASO # 0.1 (0.0-0.2); BASO % 0.6 % (0.0-2.0); EOS # 0.6 (0.0-0.7); EOS % 4.8 % (0-4.0); GRAN # 7.3 (1.4-6.5); HEMATOCRIT 38.8 % (37.0-47.0); HEMOGLOBIN 12.9 g/dl (12.5-16.0); LYMPH # 3.8 (1.2-3.4); MEAN CELL VOLUME 87 fl (80.0-100.0); MEAN CORPUSCULAR HEMOGLOBIN 29 pg (27.0-31.0); MEAN CORPUSCULAR HGB CONC 33 g/dl (33.0-37.0); MEAN PLATELET VOLUME 8.9 fl (7.4-10.4); MONO # 0.8 (0.1-0.6); PLATELET COUNT 443 K/mm3 (130-400); RED BLOOD COUNT 4.47 M/mm3 (4.10-5.30); REDCELL DISTRIBUTION WIDTH-CV 14.1 % (11.5-14.5)
[2018-05-31] MEDS ORDERED: BACTRIM DS 8001 TAB PO (18:34)
== END 2018-05-31 18:45 | disposition home or self-care (01) ==
LOC: COL.ER 15:20
PROVIDERS: Nurse Practitioner Primary Care
DX: M25.562 Pain in left knee (principal); G89.18 Other acute postprocedural pain; J45.909 Unspecified asthma, uncomplicated; F17.210 Nicotine dependence, cigarettes, uncomplicated; F31.9 Bipolar disorder, unspecified; F43.10 Post-traumatic stress disorder, unspecified; F41.9 Anxiety disorder, unspecified; Z98.890 Other specified postprocedural states
CPT/HCPCS: J2270

== ENCOUNTER 2018-06-22 14:02 | Emergency (ER) | payer MEDICAID ==
[~2018-06-22] VITALS: Ht 157.5 cm; Wt 118.2 kg
[2018-06-22 14:10] VITALS: TEMP 98.2
[2018-06-22 14:57] LABS: ALANINE AMINOTRANSFERASE 29 U/L (9-52); ALKALINE PHOSPHATASE 100 U/L (50-136); AST,SGOT 22 U/L (15-37); BILIRUBIN,TOTAL 0.4 mg/dL (0.0-1.0); BLOOD UREA NITROGEN 8 mg/dL (7-17); CALCIUM 9.9 mg/dL (8.4-10.2); CARBON DIOXIDE 27 mmol/L (22-30); CHLORIDE 105 mmol/L (98-107); CREATININE, serum 0.56 mg/dL (0.52-1.25); GLUCOSE 98 mg/dL (74-106); POTASSIUM 3.7 mmol/L (3.4-5.0); SODIUM 140 mmol/L (137-145); TOTAL PROTEIN 7.2 gm/dL (6.4-8.2)
[2018-06-22 14:58] LABS: ACETAMINOPHEN < 10 ug/mL (10-30); ALCOHOL(ethanol),MEDICAL < 10 mg/dL; ANION GAP 8 mmol/L (7-16); SALICYLATE < 1.0 mg/dL
[2018-06-22 15:03] LABS: BASO # 0.1 (0.0-0.2); BASO % 0.6 % (0.0-2.0); EOS # 0.4 (0.0-0.7); EOS % 4.6 % (0-4.0); GRAN # 4.8 (1.4-6.5); GRAN % 55.4 % (42.2-75.2); HEMATOCRIT 41.7 % (37.0-47.0); HEMOGLOBIN 13.9 g/dl (12.5-16.0); LYMPH # 2.9 (1.2-3.4); LYMPH % 33.8 % (20.0-51.0); MEAN CELL VOLUME 87 fl (80.0-100.0); MEAN CORPUSCULAR HEMOGLOBIN 29 pg (27.0-31.0); MEAN CORPUSCULAR HGB CONC 33 g/dl (33.0-37.0); MEAN PLATELET VOLUME 9.3 fl (7.4-10.4); MONO # 0.5 (0.1-0.6); MONO % 5.4 % (1.7-9.3); PLATELET COUNT 376 K/mm3 (130-400); RED BLOOD COUNT 4.79 M/mm3 (4.10-5.30); REDCELL DISTRIBUTION WIDTH-CV 13.5 % (11.5-14.5)
[2018-06-22 15:21] LABS: COLLECTION METHOD CLEAN CATCH
[2018-06-22 15:26] LABS: MUCOUS Present /lpf; PH 6 (5-8); URINE APPEARANCE Hazy; URINE BACTERIA Rare /hpf; URINE BILIRUBIN Negative (NEGATIVE); URINE BLOOD 1+ (NEGATIVE); URINE COLOR Yellow; URINE GLUCOSE Negative (NEGATIVE); URINE KETONE Negative (NEGATIVE); URINE LEUKOCYTE ESTERASE Negative (NEGATIVE); URINE NITRATE Negative (NEGATIVE); URINE PROTEIN(semi-quant) Negative (NEGATIVE); URINE RBC 0-2 /hpf; URINE UROBILINOGEN Negative (NEGATIVE)
[2018-06-22 15:36] LABS: TRICYCLIC ANTIDEPRESS URINE NEGATIVE
[2018-06-22 17:03] VITALS: BP 122/63; PULSE 104
== END 2018-06-22 17:05 | disposition home or self-care (01) ==
LOC: COL.ER 14:02
PROVIDERS: Emergency Medicine
DX: R45.851 Suicidal ideations (principal); F20.9 Schizophrenia, unspecified; F31.9 Bipolar disorder, unspecified; F41.9 Anxiety disorder, unspecified; F17.210 Nicotine dependence, cigarettes, uncomplicated

== ENCOUNTER → 2018-07-14 | Outpatient (REF) | LOC: ZLAB.WCH 08:50 | DX: Z01.89 Encounter for other specified special examinations (principal) ==

== ENCOUNTER → 2018-07-21 | Outpatient (REF) | LOC: ZLAB.WCH 08:41 | DX: Z01.89 Encounter for other specified special examinations (principal) ==

== ENCOUNTER → 2018-09-08 | Outpatient (CLI) | payer MEDICAID | LOC: ZCOL.LAB 16:10 | DX: R35.0 Frequency of micturition (principal) ==

== ENCOUNTER 2018-10-02 22:31 | Inpatient (IN) | payer MEDICAID ==
[~2018-10-02] VITALS: Ht 188 cm; Wt 114.0 kg
--- NOTE | 2018-10-02 22:55 | NUR ---
Phone report received by Maciel from [facility]. Pt expected to arrive with in the next hour via EMS.
--- NOTE | 2018-10-02 23:50 | NUR ---
EMS called in route, approximately 10 minutes out from facility. Update provided on pt.
--- NOTE | 2018-10-02 23:58 | NUR ---
Pt arrived via EMS to ICU03. Forceful vomiting present at this time. Pt alert and oriented, able to answer all questions. Transfered to ICU03 bed by stand and pivot for transfer. Paperwork provided by EMT's from [facility]. Pt currently has shorts on under hospital gown.
[2018-10-03] MEDS ORDERED: BUSPAR10 MG PO (00:22)
[2018-10-03] MEDS ORDERED: PROTONIX 40MG T40 MG PO (00:23)
[2018-10-03] MEDS ORDERED: VRAYLAR3 MG PO (00:24)
[2018-10-03] MEDS ORDERED: MONODOX100 PO (00:26)
[2018-10-03] MEDS ORDERED: PROPYLTHIOURACI50 M1 PO (00:27)
[2018-10-03] MEDS ORDERED: TYLENOL 325MG325 MG PO (00:29)
[2018-10-03 00:53] VITALS: BP 140/113; PULSE 100; TEMP 98.6
[2018-10-03 01:30] LABS: BASO # 0.1 (0.0-0.2); BASO % 0.6 % (0.0-2.0); EOS # 0.3 (0.0-0.7); EOS % 3.5 % (0-4.0); GRAN # 5.2 (1.4-6.5); GRAN % 55.6 % (42.2-75.2); HEMATOCRIT 41.3 % (37.0-47.0); HEMOGLOBIN 13.7 g/dl (12.5-16.0); LYMPH # 3.3 (1.2-3.4); LYMPH % 34.9 % (20.0-51.0); MEAN CELL VOLUME 87 fl (80.0-100.0); MEAN CORPUSCULAR HEMOGLOBIN 29 pg (27.0-31.0); MEAN CORPUSCULAR HGB CONC 33 g/dl (33.0-37.0); MEAN PLATELET VOLUME 8.9 fl (7.4-10.4); MONO # 0.5 (0.1-0.6); MONO % 4.8 % (1.7-9.3); PLATELET COUNT 365 K/mm3 (130-400); RED BLOOD COUNT 4.76 M/mm3 (4.10-5.30); REDCELL DISTRIBUTION WIDTH-CV 13.5 % (11.5-14.5)
[2018-10-03 01:34] LABS: INR 1.1 (0.8-3.0); PROTHROMBIN TIME 12.4 SECONDS (9.7-12.8)
[2018-10-03 01:39] LABS: ALBUMIN 3.9 gm/dL (3.5-5.0); BILIRUBIN,TOTAL 0.4 mg/dL (0.0-1.0); CALCIUM 8.9 mg/dL (8.4-10.2); CREATININE, serum 0.5 (0.52-1.25); POTASSIUM 4.2 mmol/L (3.4-5.0); TOTAL PROTEIN 7.2 gm/dL (6.4-8.2)
[2018-10-03 02:09] LABS: THYROID STIMULATING HORMONE 1.42 uIU/mL (0.465-4.680)
[2018-10-03 04:00] VITALS: BP 110/64; PULSE 71; TEMP 98.7
[2018-10-03 05:44] LABS: HEMATOCRIT 42.1 % (37.0-47.0); MEAN CELL VOLUME 87 fl (80.0-100.0); MEAN CORPUSCULAR HEMOGLOBIN 29 pg (27.0-31.0); MEAN CORPUSCULAR HGB CONC 33 g/dl (33.0-37.0); PLATELET COUNT 373 K/mm3 (130-400); RED BLOOD COUNT 4.86 M/mm3 (4.10-5.30); REDCELL DISTRIBUTION WIDTH-CV 13.4 % (11.5-14.5)
[2018-10-03 05:57] LABS: ALBUMIN 3.5 gm/dL (3.5-5.0); BILIRUBIN,TOTAL 0.3 mg/dL (0.0-1.0); CALCIUM 8.9 mg/dL (8.4-10.2); CREATININE, serum 0.48 (0.52-1.25); TOTAL PROTEIN 6.6 gm/dL (6.4-8.2)
--- NOTE | 2018-10-03 07:00 | NUR ---
Report received from RENÉE Del Angel.
--- NOTE | 2018-10-03 07:00 | NUR ---
Pt report provided to Anne Marie CHINCHILLA. Bags changed in room, personal belongings removed from room and locked in soiled utility.
[2018-10-03 07:45] VITALS: BP 108/70; PULSE 63; TEMP 98.9
--- NOTE | 2018-10-03 07:50 | NUR ---
Assessment complete, patient resting in bed, denies needs at this time, call light within reach.
[2018-10-03 08:41] LABS: COLLECTION METHOD CLEAN CATCH
[2018-10-03 08:48] LABS: PH 5 (5-8); SQUAMOUS EPITHELIAL 0-2 /hpf; URINE APPEARANCE Clear; URINE BACTERIA Rare /hpf; URINE BILIRUBIN Negative (NEGATIVE); URINE BLOOD 2+ (NEGATIVE); URINE COLOR Straw; URINE GLUCOSE Negative (NEGATIVE); URINE KETONE 2+ (NEGATIVE); URINE LEUKOCYTE ESTERASE Negative (NEGATIVE); URINE NITRATE Negative (NEGATIVE); URINE PROTEIN(semi-quant) Negative (NEGATIVE); URINE RBC 0-2 /hpf; URINE UROBILINOGEN Negative (NEGATIVE)
[2018-10-03 09:03] LABS: INR 1.2 (0.8-3.0); PROTHROMBIN TIME 13.2 SECONDS (9.7-12.8)
--- NOTE | 2018-10-03 10:26 | NUR ---
LORENA met with the patient to discuss a discharge plan. The patient lives alone in [place]. The patient occasionally uses a cane and she reports independence with ADLs. The patient's PCP is Dr. Yarelis Oneil and the patient receives her medication from [facility]. The patient reports no difficulties obtaining her medications. The patient does not have advanced directives in the EMR, and she was not interested in obtaining a form. The patient's plans are to return home upon discharge. The patient does not have transportation home. LORENA will continue to follow to assist with discharge needs.
[2018-10-03 12:00] VITALS: BP 116/71; PULSE 74; TEMP 98.4
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
[2018-10-03 16:00] VITALS: BP 119/74; PULSE 70; TEMP 99
[2018-10-03 17:05] LABS: ALANINE AMINOTRANSFERASE 15 U/L (9-52)
[2018-10-03 17:07] LABS: INR 1.1 (0.8-3.0); PROTHROMBIN TIME 12.3 SECONDS (9.7-12.8)
[2018-10-03 17:09] LABS: ACETAMINOPHEN < 10 ug/mL (10-30)
--- NOTE | 2018-10-03 19:19 | NUR ---
Report given to RENÉE Aguilar.
[2018-10-03 20:00] VITALS: BP 129/83; PULSE 87; TEMP 99
--- NOTE | 2018-10-03 20:00 | NUR ---
PT PLEASANT, A&O X4. PT DENIES PAIN AND NAUSEA AT THIS TIME. PT LAYING IN BED WATCHING TV. PT PROVIDED SNACK, MERARI CRACKERS AND APPLE JUICE. LEFT AC IV SITE REDRESSED.
[2018-10-04] VITALS: BP 113/63; PULSE 96; TEMP 98.8
[2018-10-04 04:00] VITALS: BP 106/87; PULSE 70; TEMP 97.7
[2018-10-04 05:28] LABS: INR 1.1 (0.8-3.0); PROTHROMBIN TIME 12.5 SECONDS (9.7-12.8)
[2018-10-04 05:32] LABS: ALBUMIN 3.3 gm/dL (3.5-5.0); BILIRUBIN,TOTAL 0.2 mg/dL (0.0-1.0); CALCIUM 9.2 mg/dL (8.4-10.2); CREATININE, serum 0.61 (0.52-1.25); MAGNESIUM 1.9 mg/dL (1.6-2.3); POTASSIUM 3.8 mmol/L (3.4-5.0); TOTAL PROTEIN 6.4 gm/dL (6.4-8.2)
--- NOTE | 2018-10-04 07:00 | NUR ---
Report received from RENÉE Aguilar.
--- NOTE | 2018-10-04 07:02 | NUR ---
REPORT GIVEN TO RENÉE ALVARES.
[2018-10-04 09:30] VITALS: BP 121/83; PULSE 98; TEMP 98.6
[2018-10-04 11:26] VITALS: BP 138/88; PULSE 88; TEMP 98.5
--- NOTE | 2018-10-04 13:00 | NUR ---
Patient reports feeling anxious, wants to go out and smoke, refuses nicotine patch, states it makes me itch, requests nicotine gum.
--- NOTE | 2018-10-04 16:12 | NUR ---
Patient walking in hallway for exercise.
[2018-10-04 16:14] VITALS: BP 135/99; PULSE 74; TEMP 98.8
--- NOTE | 2018-10-04 19:24 | NUR ---
received report from oscar archibald.
[2018-10-04 20:00] VITALS: BP 124/74; PULSE 104; TEMP 98.6
--- NOTE | 2018-10-04 22:14 | NUR ---
PATIENT AND I HAD A CONVERSATION REGARDING THE WAY SHE FEELS TOWARDS HER FAMILY. PATIENT WAS CRYING AND FELT VERY SAD. I SAT IN THE ROOM AND TALKED WITH THE PATIENT UNTIL SHE CALMED DOWN. I PROVIDED THE PATIENT WITH CRACKERS AND SOME MILK. WILL CONTINUE TO MONITOR PATIENT.
[2018-10-05 00:06] VITALS: BP 132/80; PULSE 89; TEMP 98.7
--- NOTE | 2018-10-05 00:06 | NUR ---
PATIENT IS CURRENTLY IN BED WATCHING A MOVIE. DENIED ANY PAIN AT THIS TIME. WILL CONTINUE TO MONITOR PATIENT.
--- NOTE | 2018-10-05 02:06 | NUR ---
PATIENT IS CURRENTLY SLEEPING.
[2018-10-05 04:04] VITALS: BP 136/82; PULSE 83; TEMP 98.8
--- NOTE | 2018-10-05 04:05 | NUR ---
PATIENT IS CURRENTLY SLEEPING.
[2018-10-05 06:42] LABS: ALBUMIN 3.4 gm/dL (3.5-5.0); BILIRUBIN,TOTAL 0.2 mg/dL (0.0-1.0); CALCIUM 9.4 mg/dL (8.4-10.2); CREATININE, serum 0.63 (0.52-1.25); POTASSIUM 3.8 mmol/L (3.4-5.0); TOTAL PROTEIN 6.4 gm/dL (6.4-8.2)
[2018-10-05 08:15] VITALS: BP 126/108; PULSE 78; TEMP 37.1
--- NOTE | 2018-10-05 11:18 | NUR ---
Patient resting comfortably this AM. Asking appropriate questions related to dischage, medications, and follow up care. Room safety maintained from prior shift.
--- NOTE | 2018-10-05 11:24 | NUR ---
The patient is to discharge today, 10/05. The pt does not need a taxi voucher; she has a friend picking her up to take her home. There are no additonal needs at this time.
--- NOTE | 2018-10-05 12:05 | NUR ---
Initial visit; Patient thanked Early Childhood Specialist for looking in on her, wishing her well and offering God's blessings.
--- NOTE | 2018-10-05 12:12 | NUR ---
Patient DC'd home with follow up apointments scheduled with psych and primary care. Primary care office was unable to get patient in for f/u visit within 1 week as directed and first available appointment was scheduled. Patient's belongings were returned, IV DC'd and removed, and patient walked out of the hospital with a friend.
== END 2018-10-05 12:00 | disposition home or self-care (01) | DRG 918 ==
LOC: ICU 22:31
PROVIDERS: Internal Medicine; ADMIT Internal Medicine
DX: T39.1X2A Poisoning by 4-Aminophenol derivatives, intentional self-harm, initial encounter (principal); R44.0 Auditory hallucinations; R11.10 Vomiting, unspecified; F25.9 Schizoaffective disorder, unspecified; K21.9 Gastro-esophageal reflux disease without esophagitis; E05.00 Thyrotoxicosis with diffuse goiter without thyrotoxic crisis or storm; R06.02 Shortness of breath; F41.9 Anxiety disorder, unspecified; F43.10 Post-traumatic stress disorder, unspecified; J45.909 Unspecified asthma, uncomplicated; N73.9 Female pelvic inflammatory disease, unspecified
CPT/HCPCS: 99223-AI; 99232-AI; 99233-AI; J0132; J7060; J7070

== ENCOUNTER 2018-11-06 22:13 | Emergency (ER) | payer SELFPAY ==
[~2018-11-06 22:13] MED LIST changes: -ATIVAN2 MG PO; -DEPAKOTE ER 50500 MG PO; -ULTRAM 50MG TAB50 MG PO; -ZYRTEC 10MG10 MG PO
[2018-11-06 22:18] VITALS: BP 136/87; TEMP 99
[2018-11-07] MEDS ORDERED: ZYRTEC 10MG10 MG PO (00:49)
[2018-11-07] MEDS ORDERED: NORCO 325 MG-51 TAB PO (00:50)
[2018-11-07] MEDS ORDERED: ULTRAM 50MG TAB50 MG PO (00:50)
[2018-11-07 03:09] VITALS: PULSE 102
[2018-11-07 03:32] LABS: COLLECTION METHOD CLEAN CATCH
[2018-11-07 03:39] LABS: MUCOUS Present /lpf; PH 5 (5-8); SQUAMOUS EPITHELIAL 0-2 /hpf; URINE APPEARANCE Clear; URINE BACTERIA None Seen /hpf; URINE BILIRUBIN Negative (NEGATIVE); URINE BLOOD 1+ (NEGATIVE); URINE COLOR Yellow; URINE GLUCOSE Negative (NEGATIVE); URINE KETONE Trace (NEGATIVE); URINE LEUKOCYTE ESTERASE Negative (NEGATIVE); URINE NITRATE Negative (NEGATIVE); URINE PROTEIN(semi-quant) Negative (NEGATIVE); URINE RBC 0-2 /hpf
== END 2018-11-07 04:05 | disposition home or self-care (01) ==
LOC: COL.ER 22:13
PROVIDERS: Nurse Practitioner
DX: T74.21XA Adult sexual abuse, confirmed, initial encounter (principal); Y07.59 Other non-family member, perpetrator of maltreatment and neglect

== ENCOUNTER → 2018-11-06 | Outpatient (CLI) | payer SELFPAY ==
[~2018-11-06] MED LIST changes: +BUSPAR DIVIDOSE15 MG PO; +TYLENOL 325MG325 MG PO; +ULTRAM 50MG TAB50 MG PO; +ZYRTEC 10MG10 MG PO
== END ==
LOC: COL.ER 22:18
DX: L50.9 Urticaria, unspecified (principal); R56.9 Unspecified convulsions; R06.03 Acute respiratory distress

== ENCOUNTER → 2018-11-06 | Outpatient (REF) ==
[~2018-11-06] MED LIST changes: +ATIVAN2 MG PO; +DEPAKOTE ER 50500 MG PO
== END ==
LOC: COL.ER 22:20
DX: T74.21XA Adult sexual abuse, confirmed, initial encounter (principal)

== ENCOUNTER 2018-11-14 20:40 | Emergency (ER) | payer MEDICAID ==
[~2018-11-14] VITALS: Ht 157.5 cm; Wt 118.2 kg
[~2018-11-14 20:40] MED LIST changes: +ULTRAM 50MG TAB50 MG PO; +ZYRTEC 10MG10 MG PO
[2018-11-14 20:41] VITALS: BP 140/83; TEMP 99.7
[2018-11-14] MEDS ORDERED: ATIVAN2 MG PO (20:46)
[2018-11-14 21:20] LABS: BASO # 0.1 (0.0-0.2); BASO % 0.4 % (0.0-2.0); EOS # 0.4 (0.0-0.7); EOS % 3.3 % (0-4.0); GRAN # 6.8 (1.4-6.5); GRAN % 59.7 % (42.2-75.2); HEMATOCRIT 41.2 % (37.0-47.0); HEMOGLOBIN 13.7 g/dl (12.5-16.0); LYMPH # 3.6 (1.2-3.4); LYMPH % 31.2 % (20.0-51.0); MEAN CELL VOLUME 87 fl (80.0-100.0); MEAN CORPUSCULAR HEMOGLOBIN 29 pg (27.0-31.0); MEAN CORPUSCULAR HGB CONC 33 g/dl (33.0-37.0); MEAN PLATELET VOLUME 9.1 fl (7.4-10.4); MONO # 0.6 (0.1-0.6); MONO % 5.1 % (1.7-9.3); PLATELET COUNT 366 K/mm3 (130-400); RED BLOOD COUNT 4.72 M/mm3 (4.10-5.30); REDCELL DISTRIBUTION WIDTH-CV 13.4 % (11.5-14.5)
[2018-11-14 21:30] LABS: CALCIUM 9.6 mg/dL (8.4-10.2); CREATININE, serum 0.74 (0.52-1.25); POTASSIUM 3.2 mmol/L (3.4-5.0)
[2018-11-14] MEDS ORDERED: DEPAKOTE ER 50500 MG PO (22:39)
[2018-11-14 23:08] VITALS: PULSE 110
== END 2018-11-14 23:08 | disposition home or self-care (01) ==
LOC: COL.ER 20:40
PROVIDERS: Emergency Medicine
DX: G40.909 Epilepsy, unspecified, not intractable, without status epilepticus (principal); F32.9 Major depressive disorder, single episode, unspecified
CPT/HCPCS: J2060

== ENCOUNTER 2019-01-15 16:13 | Emergency (ER) | payer MEDICAID ==
[~2019-01-15] VITALS: Ht 157.5 cm; Wt 113.6 kg
[~2019-01-15 16:13] MED LIST changes: +ATIVAN2 MG PO; +DEPAKOTE ER 50500 MG PO
[2019-01-15 16:37] VITALS: TEMP 99.5
[2019-01-15 17:34] LABS: BASO # 0.1 (0.0-0.2); BASO % 0.5 % (0.0-2.0); EOS # 0.4 (0.0-0.7); EOS % 2.8 % (0-4.0); GRAN # 8.4 (1.4-6.5); GRAN % 66.2 % (42.2-75.2); HEMATOCRIT 43.2 % (37.0-47.0); HEMOGLOBIN 14.3 g/dl (12.5-16.0); LYMPH % 23.7 % (20.0-51.0); MEAN CELL VOLUME 89 fl (80.0-100.0); MEAN CORPUSCULAR HEMOGLOBIN 29 pg (27.0-31.0); MEAN CORPUSCULAR HGB CONC 33 g/dl (33.0-37.0); MEAN PLATELET VOLUME 9.2 fl (7.4-10.4); MONO # 0.8 (0.1-0.6); MONO % 6.4 % (1.7-9.3); PLATELET COUNT 363 K/mm3 (130-400); RED BLOOD COUNT 4.88 M/mm3 (4.10-5.30); REDCELL DISTRIBUTION WIDTH-CV 13.2 % (11.5-14.5)
[2019-01-15 17:42] LABS: ALANINE AMINOTRANSFERASE 47 U/L (9-52); ALBUMIN 4.4 gm/dL (3.5-5.0); ALKALINE PHOSPHATASE 101 U/L (50-136); ANION GAP 9 mmol/L (7-16); AST,SGOT 26 U/L (15-37); BILIRUBIN,TOTAL 0.3 mg/dL (0.0-1.0); BLOOD UREA NITROGEN 12 mg/dL (7-17); CARBON DIOXIDE 27 mmol/L (22-30); CHLORIDE 107 mmol/L (98-107); CREATININE, serum 0.54 (0.52-1.25); GLUCOSE 100 mg/dL (74-106); POTASSIUM 3.8 mmol/L (3.4-5.0); SODIUM 143 mmol/L (137-145); TOTAL PROTEIN 7.8 gm/dL (6.4-8.2)
[2019-01-15 17:43] LABS: ACETAMINOPHEN < 10 ug/mL (10-30); ALCOHOL(ethanol),MEDICAL < 10 mg/dL; SALICYLATE < 1.0 mg/dL
[2019-01-15 17:53] LABS: COLLECTION METHOD CLEAN CATCH
[2019-01-15 17:59] LABS: MUCOUS Present /lpf; PH 6 (5-8); SQUAMOUS EPITHELIAL 0-2 /hpf; URINE APPEARANCE Clear; URINE BACTERIA None Seen /hpf; URINE BILIRUBIN Negative (NEGATIVE); URINE BLOOD Negative (NEGATIVE); URINE COLOR Yellow; URINE GLUCOSE Negative (NEGATIVE); URINE KETONE Negative (NEGATIVE); URINE LEUKOCYTE ESTERASE Negative (NEGATIVE); URINE NITRATE Negative (NEGATIVE); URINE PROTEIN(semi-quant) Negative (NEGATIVE); URINE RBC 0-2 /hpf; URINE UROBILINOGEN Negative (NEGATIVE)
[2019-01-15 18:21] LABS: TRICYCLIC ANTIDEPRESS URINE NEGATIVE
[2019-01-15 21:54] VITALS: BP 132/71; PULSE 86
== END 2019-01-15 21:58 | disposition home or self-care (01) ==
LOC: COL.ER 16:13
PROVIDERS: Emergency Medicine
DX: T18.9XXA Foreign body of alimentary tract, part unspecified, initial encounter (principal); R44.3 Hallucinations, unspecified; F41.9 Anxiety disorder, unspecified; H10.9 Unspecified conjunctivitis; F17.210 Nicotine dependence, cigarettes, uncomplicated; F32.9 Major depressive disorder, single episode, unspecified

== ENCOUNTER 2019-03-26 18:05 | Emergency (ER) | payer MEDICAID ==
[~2019-03-26] VITALS: Ht 157.5 cm; Wt 109.1 kg
[2019-03-26 18:20] VITALS: BP 117/59; PULSE 119; TEMP 97.9
[2019-03-26 19:01] LABS: COLLECTION METHOD CLEAN CATCH
[2019-03-26 19:10] LABS: MUCOUS Present /lpf; PH 5 (5-8); SQUAMOUS EPITHELIAL 0-2 /hpf; URINE APPEARANCE Hazy; URINE BACTERIA None Seen /hpf; URINE BILIRUBIN Negative (NEGATIVE); URINE BLOOD Negative (NEGATIVE); URINE COLOR Yellow; URINE GLUCOSE Negative (NEGATIVE); URINE KETONE Negative (NEGATIVE); URINE LEUKOCYTE ESTERASE Negative (NEGATIVE); URINE NITRATE Negative (NEGATIVE); URINE PROTEIN(semi-quant) Negative (NEGATIVE); URINE RBC 0-2 /hpf; URINE UROBILINOGEN Negative (NEGATIVE)
== END 2019-03-26 19:14 | disposition home or self-care (01) ==
LOC: COL.ER 18:05
PROVIDERS: Family Medicine
DX: R33.9 Retention of urine, unspecified (principal); F32.9 Major depressive disorder, single episode, unspecified

== ENCOUNTER 2019-04-06 00:18 | Emergency (ER) | payer MEDICAID ==
[~2019-04-06] VITALS: Ht 157.5 cm; Wt 109.1 kg
[2019-04-06 00:32] VITALS: BP 128/82; TEMP 98.6
[2019-04-06 01:43] VITALS: PULSE 115
[2019-04-06] MEDS ORDERED: VRAYLAR3 MG PO (02:12)
[2019-04-06] MEDS ORDERED: PERIACTIN 4MG TA4 MG PO (02:13)
== END 2019-04-06 01:43 | disposition home or self-care (01) ==
LOC: COL.ER 00:18
DX: M25.561 Pain in right knee (principal); R20.2 Paresthesia of skin; K21.9 Gastro-esophageal reflux disease without esophagitis; E03.9 Hypothyroidism, unspecified

== ENCOUNTER 2019-04-09 21:10 | Emergency (ER) | payer MEDICAID ==
[~2019-04-09] VITALS: Ht 157.5 cm; Wt 109.1 kg
[~2019-04-09 21:10] MED LIST changes: +PERIACTIN 4MG TA4 MG PO
[2019-04-09 21:52] LABS: COLLECTION METHOD CLEAN CATCH
[2019-04-09 22:01] LABS: BASO # 0.1 (0.0-0.2); BASO % 0.4 % (0.0-2.0); EOS # 0.5 (0.0-0.7); EOS % 3.6 % (0-4.0); GRAN % 63.1 % (42.2-75.2); HEMATOCRIT 41.2 % (37.0-47.0); HEMOGLOBIN 13.6 g/dl (12.5-16.0); LYMPH # 3.4 (1.2-3.4); LYMPH % 26.8 % (20.0-51.0); MEAN CELL VOLUME 89 fl (80.0-100.0); MEAN CORPUSCULAR HEMOGLOBIN 29 pg (27.0-31.0); MEAN CORPUSCULAR HGB CONC 33 g/dl (33.0-37.0); MEAN PLATELET VOLUME 9.1 fl (7.4-10.4); MONO # 0.7 (0.1-0.6); MONO % 5.8 % (1.7-9.3); PLATELET COUNT 361 K/mm3 (130-400); RED BLOOD COUNT 4.62 M/mm3 (4.10-5.30); REDCELL DISTRIBUTION WIDTH-CV 12.6 % (11.5-14.5)
[2019-04-09 22:06] LABS: ACETAMINOPHEN < 10 ug/mL (10-30); ALANINE AMINOTRANSFERASE 9 U/L (9-52); ALBUMIN 4.2 gm/dL (3.5-5.0); ALCOHOL(ethanol),MEDICAL < 10 mg/dL; ALKALINE PHOSPHATASE 102 U/L (50-136); ANION GAP 9 mmol/L (7-16); AST,SGOT 16 U/L (15-37); BILIRUBIN,TOTAL 0.1 mg/dL (0.0-1.0); BLOOD UREA NITROGEN 12 mg/dL (7-17); CALCIUM 9.6 mg/dL (8.4-10.2); CARBON DIOXIDE 26 mmol/L (22-30); CHLORIDE 105 mmol/L (98-107); CREATININE, serum 0.64 (0.52-1.25); GLUCOSE 84 mg/dL (74-106); SALICYLATE < 1.0 mg/dL; SODIUM 140 mmol/L (137-145); TOTAL PROTEIN 7.5 gm/dL (6.4-8.2)
[2019-04-09 22:14] LABS: MUCOUS Present /lpf; PH 5 (5-8); SQUAMOUS EPITHELIAL 0-2 /hpf; URINE APPEARANCE Clear; URINE BACTERIA None Seen /hpf; URINE BILIRUBIN Negative (NEGATIVE); URINE BLOOD Negative (NEGATIVE); URINE COLOR Yellow; URINE GLUCOSE Negative (NEGATIVE); URINE KETONE Negative (NEGATIVE); URINE LEUKOCYTE ESTERASE Trace (NEGATIVE); URINE NITRATE Negative (NEGATIVE); URINE PROTEIN(semi-quant) Negative (NEGATIVE); URINE RBC 0-2 /hpf; URINE UROBILINOGEN Negative (NEGATIVE)
[2019-04-09 22:21] LABS: TRICYCLIC ANTIDEPRESS URINE NEGATIVE
[2019-04-10 01:36] VITALS: BP 128/79; PULSE 106; TEMP 97.3
== END 2019-04-10 01:45 ==
LOC: COL.ER 21:10
PROVIDERS: Family Medicine
DX: F32.9 Major depressive disorder, single episode, unspecified (principal); R45.851 Suicidal ideations

== ENCOUNTER 2019-05-21 13:14 | Emergency (ER) | payer MEDICAID ==
[~2019-05-21] VITALS: Ht 157.5 cm; Wt 109.1 kg
[2019-05-21 14:34] LABS: BASO # 0.1 (0.0-0.2); BASO % 0.5 % (0.0-2.0); EOS # 0.4 (0.0-0.7); EOS % 3.5 % (0-4.0); GRAN # 7.5 (1.4-6.5); GRAN % 63.2 % (42.2-75.2); HEMATOCRIT 43.2 % (37.0-47.0); HEMOGLOBIN 14.4 g/dl (12.5-16.0); LYMPH # 3.4 (1.2-3.4); MEAN CELL VOLUME 88 fl (80.0-100.0); MEAN CORPUSCULAR HEMOGLOBIN 29 pg (27.0-31.0); MEAN CORPUSCULAR HGB CONC 33 g/dl (33.0-37.0); MEAN PLATELET VOLUME 9.1 fl (7.4-10.4); MONO # 0.4 (0.1-0.6); MONO % 3.5 % (1.7-9.3); PLATELET COUNT 373 K/mm3 (130-400); RED BLOOD COUNT 4.92 M/mm3 (4.10-5.30); REDCELL DISTRIBUTION WIDTH-CV 12.8 % (11.5-14.5)
[2019-05-21 15:06] LABS: ALANINE AMINOTRANSFERASE 21 U/L (9-52); ALBUMIN 4.3 gm/dL (3.5-5.0); ALKALINE PHOSPHATASE 109 U/L (50-136); ANION GAP 9 mmol/L (7-16); AST,SGOT 22 U/L (15-37); BILIRUBIN,TOTAL 0.5 mg/dL (0.0-1.0); BLOOD UREA NITROGEN 10 mg/dL (7-17); CALCIUM 9.7 mg/dL (8.4-10.2); CARBON DIOXIDE 25 mmol/L (22-30); CHLORIDE 108 mmol/L (98-107); CREATININE, serum 0.52 (0.52-1.25); GLUCOSE 117 mg/dL (74-106); POTASSIUM 3.7 mmol/L (3.4-5.0); SODIUM 142 mmol/L (137-145); TOTAL PROTEIN 7.7 gm/dL (6.4-8.2)
[2019-05-21 15:15] LABS: ACETAMINOPHEN < 10 ug/mL (10-30); ALCOHOL(ethanol),MEDICAL < 10 mg/dL; SALICYLATE < 1.0 mg/dL
[2019-05-21] MEDS ORDERED: ZYRTEC 10MG10 MG PO (17:21)
[2019-05-21] MEDS ORDERED: KLONOPIN 1MG1 MG PO (17:24)
[2019-05-21 19:05] LABS: COLLECTION METHOD CLEAN CATCH
[2019-05-21 19:11] LABS: MUCOUS Present /lpf; PH 6 (5-8); SQUAMOUS EPITHELIAL 0-2 /hpf; URINE APPEARANCE Clear; URINE BACTERIA None Seen /hpf; URINE BILIRUBIN Negative (NEGATIVE); URINE BLOOD 3+ (NEGATIVE); URINE COLOR Yellow; URINE GLUCOSE Negative (NEGATIVE); URINE KETONE Negative (NEGATIVE); URINE LEUKOCYTE ESTERASE Negative (NEGATIVE); URINE NITRATE Negative (NEGATIVE); URINE PROTEIN(semi-quant) Negative (NEGATIVE); URINE UROBILINOGEN Negative (NEGATIVE)
[2019-05-21 19:46] LABS: TRICYCLIC ANTIDEPRESS URINE NEGATIVE
[2019-05-21 21:14] VITALS: BP 107/78; PULSE 112; TEMP 98.1
== END 2019-05-21 21:14 | disposition home or self-care (01) ==
LOC: COL.ER 13:14
PROVIDERS: Nurse Practitioner
DX: F32.9 Major depressive disorder, single episode, unspecified (principal); R45.851 Suicidal ideations; F20.9 Schizophrenia, unspecified

== ENCOUNTER → 2019-06-16 | Outpatient (CLI) | payer MEDICAID ==
[~2019-06-16] MED LIST changes: +KLONOPIN 1MG1 MG PO
== END ==
LOC: ZCOL.LAB 16:41
DX: Z01.89 Encounter for other specified special examinations (principal)

== ENCOUNTER → 2019-06-22 | Outpatient (CLI) | payer MEDICAID | LOC: COL.CARD 08:43 | DX: G43.109 Migraine with aura, not intractable, without status migrainosus (principal); G40.309 Generalized idiopathic epilepsy and epileptic syndromes, not intractable, without status epilepticus | CPT/HCPCS: A9585 ==

== ENCOUNTER 2019-08-28 00:26 | Emergency (ER) | payer MEDICAID ==
[~2019-08-28] VITALS: Ht 157.5 cm; Wt 111.4 kg
[2019-08-28 01:15] VITALS: BP 109/70; TEMP 98.1
[2019-08-28 01:48] LABS: HEMATOCRIT 41.7 % (37.0-47.0); HEMOGLOBIN 13.7 g/dl (12.5-16.0); MEAN CELL VOLUME 90 fl (80.0-100.0); MEAN CORPUSCULAR HEMOGLOBIN 30 pg (27.0-31.0); MEAN CORPUSCULAR HGB CONC 33 g/dl (33.0-37.0); MEAN PLATELET VOLUME 8.9 fl (7.4-10.4); PLATELET COUNT 424 K/mm3 (130-400); RED BLOOD COUNT 4.65 M/mm3 (4.10-5.30); REDCELL DISTRIBUTION WIDTH-CV 12.8 % (11.5-14.5)
[2019-08-28 01:58] LABS: ALBUMIN 4.4 gm/dL (3.5-5.0); BILIRUBIN,TOTAL 0.3 mg/dL (0.0-1.0); CALCIUM 9.9 mg/dL (8.4-10.2); CREATININE, serum 0.56 (0.52-1.25); TOTAL PROTEIN 7.8 gm/dL (6.4-8.2)
[2019-08-28 02:15] LABS: COLLECTION METHOD CLEAN CATCH
[2019-08-28 02:24] LABS: MUCOUS Present /lpf; PH 5 (5-8); URINE APPEARANCE Hazy; URINE BACTERIA None Seen /hpf; URINE BILIRUBIN Negative (NEGATIVE); URINE BLOOD 1+ (NEGATIVE); URINE COLOR Amber; URINE GLUCOSE Negative (NEGATIVE); URINE KETONE Negative (NEGATIVE); URINE LEUKOCYTE ESTERASE Trace (NEGATIVE); URINE NITRATE Negative (NEGATIVE); URINE PROTEIN(semi-quant) Negative (NEGATIVE); URINE RBC 0-2 /hpf; URINE UROBILINOGEN Negative (NEGATIVE)
[2019-08-28 02:31] LABS: BAND 4 % (0-10); EOSINOPHIL 3 % (0-4); LYMPHOCYTE 25 % (20.0-51.0); NEUTROPHILS 62 % (42.0-75.2)
[2019-08-28 02:32] LABS: PLATELET ESTIMATE INCREASED (NORMAL)
[2019-08-28 03:33] VITALS: PULSE 101
== END 2019-08-28 03:33 | disposition home or self-care (01) ==
LOC: COL.ER 00:26
PROVIDERS: Physician Assistant
DX: J45.901 Unspecified asthma with (acute) exacerbation (principal); N76.0 Acute vaginitis; J06.9 Acute upper respiratory infection, unspecified; F41.9 Anxiety disorder, unspecified; F17.210 Nicotine dependence, cigarettes, uncomplicated

== ENCOUNTER 2019-08-29 20:57 | Emergency (ER) | payer MEDICAID ==
[~2019-08-29] VITALS: Ht 160 cm; Wt 111.4 kg
[2019-08-29 21:05] VITALS: BP 133/78; TEMP 99
[2019-08-29 21:59] VITALS: PULSE 114
== END 2019-08-29 21:59 | disposition home or self-care (01) ==
LOC: COL.ER 20:57
DX: M25.561 Pain in right knee (principal); E05.00 Thyrotoxicosis with diffuse goiter without thyrotoxic crisis or storm; F41.9 Anxiety disorder, unspecified; F31.9 Bipolar disorder, unspecified; F17.210 Nicotine dependence, cigarettes, uncomplicated; W19.XXXA Unspecified fall, initial encounter
CPT/HCPCS: J1885; L1846

== ENCOUNTER 2019-11-18 21:58 | Emergency (ER) | payer MEDICAID ==
[~2019-11-18] VITALS: Ht 157.5 cm; Wt 118.2 kg
[2019-11-18 22:23] VITALS: TEMP 99.5
[2019-11-19 01:56] VITALS: BP 112/63; PULSE 98
== END 2019-11-19 02:00 | disposition home or self-care (01) ==
LOC: COL.ER 21:58
DX: J06.9 Acute upper respiratory infection, unspecified (principal); E05.91 Thyrotoxicosis, unspecified with thyrotoxic crisis or storm; F41.9 Anxiety disorder, unspecified; F17.210 Nicotine dependence, cigarettes, uncomplicated; Z20.828 Contact with and (suspected) exposure to other viral communicable diseases; Z88.8 Allergy status to other drugs, medicaments and biological substances; Z88.7 Allergy status to serum and vaccine

== ENCOUNTER → 2019-11-22 | Outpatient (CLI) | payer MEDICAID | LOC: COL.RAD 12:46 | DX: R07.9 Chest pain, unspecified (principal) | CPT/HCPCS: A9540; A9567 ==

== ENCOUNTER 2019-12-04 11:57 | Emergency (ER) | payer MEDICAID ==
[~2019-12-04] VITALS: Ht 157.5 cm; Wt 118.2 kg
[2019-12-04 12:11] VITALS: BP 119/90; PULSE 99; TEMP 98
== END 2019-12-04 13:55 | disposition home or self-care (01) ==
LOC: COL.ER 11:57
DX: Z02.89 Encounter for other administrative examinations (principal)

== ENCOUNTER 2020-04-02 02:27 | Emergency (ER) | payer MEDICAID ==
[~2020-04-02] VITALS: Ht 157.5 cm; Wt 118.2 kg
[2020-04-02 03:12] LABS: COLLECTION METHOD CLEAN CATCH
[2020-04-02 03:17] LABS: PH 6 (5-8); SQUAMOUS EPITHELIAL None Seen /hpf; URINE APPEARANCE Clear; URINE BACTERIA None Seen /hpf; URINE BILIRUBIN Negative (NEGATIVE); URINE BLOOD Negative (NEGATIVE); URINE COLOR Straw; URINE GLUCOSE Negative (NEGATIVE); URINE KETONE Negative (NEGATIVE); URINE LEUKOCYTE ESTERASE Negative (NEGATIVE); URINE NITRATE Negative (NEGATIVE); URINE PROTEIN(semi-quant) Negative (NEGATIVE); URINE RBC None Seen /hpf; URINE UROBILINOGEN Negative (NEGATIVE)
[2020-04-02 03:26] LABS: TRICYCLIC ANTIDEPRESS URINE NEGATIVE
[2020-04-02 03:29] LABS: HEMOGLOBIN 15.5 g/dl (12.5-16.0); MEAN CELL VOLUME 89 fl (80.0-100.0); MEAN CORPUSCULAR HEMOGLOBIN 30 pg (27.0-31.0); MEAN CORPUSCULAR HGB CONC 34 g/dl (33.0-37.0); MEAN PLATELET VOLUME 9.3 fl (7.4-10.4); PLATELET COUNT 421 K/mm3 (130-400); REDCELL DISTRIBUTION WIDTH-CV 12.7 % (11.5-14.5)
[2020-04-02 03:35] LABS: ALANINE AMINOTRANSFERASE 25 U/L (4-34); ALBUMIN 4.7 gm/dL (3.5-5.0); ALKALINE PHOSPHATASE 103 U/L (50-136); ANION GAP 11 mmol/L (7-16); AST,SGOT 21 U/L (15-37); BILIRUBIN,TOTAL 0.3 mg/dL (0.0-1.0); BLOOD UREA NITROGEN 10 mg/dL (7-17); CALCIUM 9.7 mg/dL (8.4-10.2); CARBON DIOXIDE 26 mmol/L (22-30); CHLORIDE 105 mmol/L (98-107); CREATININE, serum 0.73 (0.52-1.25); GLUCOSE 94 mg/dL (74-106); POTASSIUM 3.7 mmol/L (3.4-5.0); SODIUM 142 mmol/L (137-145); TOTAL PROTEIN 8.3 gm/dL (6.4-8.2)
[2020-04-02 03:37] LABS: ACETAMINOPHEN < 10 ug/mL (10-30); ALCOHOL(ethanol),MEDICAL < 10 mg/dL; SALICYLATE < 1.0 mg/dL
[2020-04-02 04:30] LABS: BAND 7 % (0-10); EOSINOPHIL 4 % (0-4); LYMPHOCYTE 37 % (20.0-51.0); NEUTROPHILS 50 % (42.0-75.2); PLATELET ESTIMATE INCREASED (NORMAL)
[2020-04-02 08:08] VITALS: BP 102/62; PULSE 102; TEMP 98.9
== END 2020-04-02 08:00 | disposition home or self-care (01) ==
LOC: COL.ER 02:27
PROVIDERS: Physician Assistant
DX: F32.9 Major depressive disorder, single episode, unspecified (principal); E05.00 Thyrotoxicosis with diffuse goiter without thyrotoxic crisis or storm; F17.200 Nicotine dependence, unspecified, uncomplicated; Z90.49 Acquired absence of other specified parts of digestive tract; Z32.02 Encounter for pregnancy test, result negative; Z23 Encounter for immunization

== ENCOUNTER 2020-05-17 14:38 | Emergency (ER) | payer MEDICAID ==
[~2020-05-17] VITALS: Ht 157.5 cm; Wt 114.5 kg
[2020-05-17 14:43] VITALS: BP 113/80; PULSE 100; TEMP 98.4
== END 2020-05-17 15:15 | disposition home or self-care (01) ==
LOC: COL.ER 14:38
DX: R06.02 Shortness of breath (principal); R25.1 Tremor, unspecified; T48.6X5A Adverse effect of antiasthmatics, initial encounter; Z88.6 Allergy status to analgesic agent; Z88.8 Allergy status to other drugs, medicaments and biological substances

== ENCOUNTER → 2020-05-17 | Outpatient (CLI) | payer MEDICAID | LOC: COL.PUL 12:48 | DX: R06.02 Shortness of breath (principal); Z77.22 Contact with and (suspected) exposure to environmental tobacco smoke (acute) (chronic) | CPT/HCPCS: J7674 ==

== ENCOUNTER 2020-06-06 03:25 | Emergency (ER) | payer MEDICAID ==
[~2020-06-06] VITALS: Ht 157.5 cm; Wt 116.4 kg
[2020-06-06 03:43] VITALS: BP 113/79
[2020-06-06 04:01] VITALS: PULSE 93; TEMP 98.8
== END 2020-06-06 04:06 | disposition left against medical advice (07) ==
LOC: COL.ER 03:25
DX: F43.9 Reaction to severe stress, unspecified (principal); R50.9 Fever, unspecified; Z88.5 Allergy status to narcotic agent; Z88.8 Allergy status to other drugs, medicaments and biological substances

== ENCOUNTER 2020-11-25 15:41 | Emergency (ER) | payer MEDICAID ==
[2020-11-25 16:17] VITALS: TEMP 98
[2020-11-25 16:36] LABS: COLLECTION METHOD CLEAN CATCH
[2020-11-25 16:44] LABS: PH 6 (5-8); SQUAMOUS EPITHELIAL 0-2 /hpf; URINE APPEARANCE Clear; URINE BACTERIA None Seen /hpf; URINE BILIRUBIN Negative (NEGATIVE); URINE BLOOD Negative (NEGATIVE); URINE COLOR Straw; URINE GLUCOSE Negative (NEGATIVE); URINE KETONE Negative (NEGATIVE); URINE LEUKOCYTE ESTERASE Negative (NEGATIVE); URINE NITRATE Negative (NEGATIVE); URINE PROTEIN(semi-quant) Negative (NEGATIVE); URINE RBC 0-2 /hpf; URINE UROBILINOGEN Negative (NEGATIVE)
[2020-11-25 16:52] LABS: TRICYCLIC ANTIDEPRESS URINE NEGATIVE
[2020-11-25 17:06] LABS: BASO # 0.1 (0.0-0.2); BASO % 0.6 % (0.0-2.0); EOS # 0.4 (0.0-0.7); EOS % 4.1 % (0-4.0); HEMATOCRIT 43.2 % (37.0-47.0); HEMOGLOBIN 14.5 g/dl (12.5-16.0); LYMPH # 3.2 (1.2-3.4); LYMPH % 31.5 % (20.0-51.0); MEAN CELL VOLUME 89 fl (80.0-100.0); MEAN CORPUSCULAR HEMOGLOBIN 30 pg (27.0-31.0); MEAN CORPUSCULAR HGB CONC 34 g/dl (33.0-37.0); MEAN PLATELET VOLUME 9.4 fl (7.4-10.4); MONO # 0.5 (0.1-0.6); MONO % 4.6 % (1.7-9.3); PLATELET COUNT 316 K/mm3 (130-400); RED BLOOD COUNT 4.84 M/mm3 (4.10-5.30); REDCELL DISTRIBUTION WIDTH-CV 12.8 % (11.5-14.5)
[2020-11-25 17:19] LABS: ALANINE AMINOTRANSFERASE 20 U/L (4-34); ALKALINE PHOSPHATASE 82 U/L (50-136); ANION GAP 4 mmol/L (7-16); AST,SGOT 23 U/L (15-37); BILIRUBIN,TOTAL 0.2 mg/dL (0.0-1.0); BLOOD UREA NITROGEN 10 mg/dL (7-17); CALCIUM 9.7 mg/dL (8.4-10.2); CARBON DIOXIDE 29 mmol/L (22-30); CHLORIDE 106 mmol/L (98-107); CREATININE, serum 0.66 (0.52-1.25); GLUCOSE 111 mg/dL (74-106); LIPASE 55 U/L (23-300); POTASSIUM 3.6 mmol/L (3.4-5.0); SODIUM 139 mmol/L (137-145); TOTAL PROTEIN 7.3 gm/dL (6.4-8.2)
[2020-11-25 17:22] LABS: ACETAMINOPHEN < 10 ug/mL (10-30); ALCOHOL(ethanol),MEDICAL < 10 mg/dL; SALICYLATE < 1.0 mg/dL
[2020-11-25 18:10] VITALS: BP 122/68; PULSE 71
== END 2020-11-25 18:38 | disposition home or self-care (01) ==
LOC: COL.ER 15:41 → LDRO 15:41 → EDSTATUS 15:59 → COL.ER 18:38
PROVIDERS: Nurse Practitioner Primary Care
DX: F22 Delusional disorders (principal); F20.9 Schizophrenia, unspecified; F17.200 Nicotine dependence, unspecified, uncomplicated; Z79.899 Other long term (current) drug therapy; Z88.8 Allergy status to other drugs, medicaments and biological substances

== ENCOUNTER 2021-05-08 13:49 | Emergency (ER) | payer MEDICAID ==
[~2021-05-08] VITALS: Ht 160 cm; Wt 104.5 kg
[2021-05-08 13:58] VITALS: BP 149/123; PULSE 90; TEMP 98.7
== END 2021-05-08 15:49 | disposition home or self-care (01) ==
LOC: COL.ER 13:49
DX: S63.502A Unspecified sprain of left wrist, initial encounter (principal); S80.01XA Contusion of right knee, initial encounter; J45.909 Unspecified asthma, uncomplicated; E05.00 Thyrotoxicosis with diffuse goiter without thyrotoxic crisis or storm; F17.210 Nicotine dependence, cigarettes, uncomplicated; Z79.899 Other long term (current) drug therapy; Z88.6 Allergy status to analgesic agent; W19.XXXA Unspecified fall, initial encounter

== ENCOUNTER 2021-06-10 01:57 | Emergency (ER) | payer MEDICAID ==
[~2021-06-10] VITALS: Ht 157.5 cm; Wt 104.5 kg
[2021-06-10 02:00] VITALS: TEMP 98
[2021-06-10] MEDS ORDERED: ROXICODONE 55 MG/TAB PO ×2 (02:29)
[2021-06-10 02:52] VITALS: BP 144/70; PULSE 76
[2021-06-10] MEDS ORDERED: PERCOCET 325 MG1 TA2 PO (11:51)
[2021-06-10] MEDS ORDERED: AMOXICILLIN 50500 MG PO (11:51)
== END 2021-06-10 02:52 | disposition home or self-care (01) ==
LOC: COL.ER 01:57
DX: K08.89 Other specified disorders of teeth and supporting structures (principal); J45.909 Unspecified asthma, uncomplicated; F17.210 Nicotine dependence, cigarettes, uncomplicated; Z88.5 Allergy status to narcotic agent

== ENCOUNTER 2021-11-17 20:01 | Emergency (ER) | payer MEDICAID ==
[~2021-11-17] VITALS: Ht 157.5 cm; Wt 103.2 kg
[~2021-11-17 20:01] MED LIST changes: +AMOXICILLIN 50500 MG PO; +PERCOCET 325 MG1 TA2 PO
[2021-11-17 21:33] VITALS: TEMP 97.8
[2021-11-17 23:43] LABS: BASO % 0.2 % (0.0-2.0); EOS % 0.1 % (0.0-4.0); GRAN # 17.9 K/mm3 (1.4-6.5); GRAN % 87.7 % (42.2-75.2); LYMPH # 1.7 K/mm3 (1.2-3.4); LYMPH % 8.5 % (20.0-51.0); MEAN CELL VOLUME 86 fl (80.0-100.0); MEAN CORPUSCULAR HEMOGLOBIN 30 pg (27-31); MEAN CORPUSCULAR HGB CONC 35 g/dl (33.0-37.0); MEAN PLATELET VOLUME 9.2 fl (7.4-10.4); MONO # 0.6 K/mm3 (0.1-0.6); MONO % 3.1 % (1.7-9.3); PLATELET COUNT 351 K/mm3 (130-400); RED BLOOD COUNT 4.66 M/mm3 (4.10-5.30); REDCELL DISTRIBUTION WIDTH-CV 12.3 % (11.5-14.5)
[2021-11-18 00:33] LABS: COLLECTION METHOD CLEAN CATCH
[2021-11-18 00:47] LABS: BUDDING YEAST Present (NOT PRESENT); MUCOUS Present (NOT PRESENT); PH 5 (5-8); SQUAMOUS EPITHELIAL 0-2 /hpf (0-10); URINE APPEARANCE Turbid (CLEAR/HAZY); URINE BACTERIA Rare /hpf (NONE SEEN); URINE BILIRUBIN Negative (NEGATIVE); URINE BLOOD 3+ (NEGATIVE); URINE COLOR Amber (YELLOW); URINE GLUCOSE Negative (NEGATIVE); URINE KETONE 1+ (NEGATIVE); URINE LEUKOCYTE ESTERASE Negative (NEGATIVE); URINE NITRATE Negative (NEGATIVE); URINE PROTEIN(semi-quant) 1+ (NEGATIVE); URINE RBC >50 /hpf (0-2); URINE UROBILINOGEN Negative (NEGATIVE)
[2021-11-18] MEDS ORDERED: CEPHALEXIN500 M1 PO (00:53)
[2021-11-18 01:04] VITALS: BP 124/73; PULSE 94
== END 2021-11-18 01:04 | disposition home or self-care (01) ==
LOC: COL.ER 20:01
PROVIDERS: Emergency Medicine
DX: O03.9 Complete or unspecified spontaneous abortion without complication (principal); N39.0 Urinary tract infection, site not specified; Z28.310 Unvaccinated for COVID-19
CPT/HCPCS: J2270; J2405; J7030

== ENCOUNTER 2022-06-18 18:27 | Outpatient (CLI) | payer MEDICAID ==
[~2022-06-18] VITALS: Ht 160 cm; Wt 94.5 kg
[~2022-06-18 18:27] MED LIST changes: +CEPHALEXIN500 M1 PO
--- NOTE | 2022-06-18 18:45 | NUR ---
G3L0 at 21 weeks and 6 days arrives to unit with complaint of cramping and vaginal pressure. Pt denies vaginal bleeding or LOF. Reports good movement. Pt states she sees maternal medicine for having Graves disease. Pt with extensive problem list and extensive mental health history. Is not taking any psych meds at this time and reports feeling stable and is acting appropriately. Clean gown on, oriented to room, bed in low and locked position, call light within reach. US used as doppler, FHR 160s. Emerson applied. Vitals obtained. Admission assessment complete.
[2022-06-18 18:55] VITALS: BP 105/58; PULSE 96; TEMP 99.5
--- NOTE | 2022-06-18 19:00 | NUR ---
This nurse to bedside to perform SVE and update on plan of care. Pt is ok with plan to discharge home is cervix is closed, states she mainly wanted to make sure her baby was ok. Reassurance given. SVE closed/thick/high 1914 - Discharge instructions reviewed with patient, verbalized understanding. Pt seen ambulating off unit with family member.
[2022-06-18] MEDS ORDERED: PRENATAL TABLET PO (19:46)
[2022-06-18] MEDS ORDERED: ALBUTEROL0.83 MG/ML IH (19:47)
[2022-06-18] MEDS ORDERED: PROAIR HFA0.09 MG/AC IH (19:47)
[2022-06-18] MEDS ORDERED: BRIVIACT50 MG PO (19:48)
== END 2022-06-18 21:15 | disposition home or self-care (01) ==
LOC: LDRO 18:27 → COL.ER 18:27 → EDSTATUS 18:31 → LDRO 21:15
DX: O99.891 Other specified diseases and conditions complicating pregnancy (principal); R10.30 Lower abdominal pain, unspecified; Z3A.21 21 weeks gestation of pregnancy

== ENCOUNTER 2022-09-16 19:52 | Outpatient (CLI) | payer MEDICAID ==
[~2022-09-16] VITALS: Ht 160 cm; Wt 99.1 kg
[~2022-09-16 19:52] MED LIST changes: +BRIVIACT50 MG PO; +PRENATAL TABLET PO
--- NOTE | 2022-09-16 20:00 | NUR ---
G3L0. 34.5. Pt ambulatory to LDR 4 with pt's mother. Clean gown on. EFM and TOCO explained and applied. Pt states she has not felt the baby move as much and states she is having constant cramping and pressure in her vagina. Denies leaking of fluids or vaginal bleeding. Plan of care explained to pt who verbalizes her understanding. Call light within reach.
[2022-09-16] MEDS ORDERED: BRIVIACT100 MG PO (20:19)
[2022-09-16] MEDS ORDERED: PRILOTC PO (20:20)
[2022-09-16] MEDS ORDERED: FOLIC ACID 11 MG/TA1 PO (20:21)
[2022-09-16 20:30] VITALS: BP 112/62; PULSE 98; TEMP 98.9
[2022-09-16 20:45] VITALS: BP 120/80; PULSE 103
[2022-09-16 21:00] VITALS: BP 121/81; PULSE 91
[2022-09-16 21:11] VITALS: BP 121/63; PULSE 88
[2022-09-16] MEDS ORDERED: 00186-0370-20 IH (21:46)
== END 2022-09-16 21:20 | disposition home or self-care (01) ==
LOC: LDRO 19:52
DX: Z34.90 Encounter for supervision of normal pregnancy, unspecified, unspecified trimester (principal); Z3A.00 Weeks of gestation of pregnancy not specified

== ENCOUNTER 2022-10-10 14:35 | Inpatient (IN) | payer MEDICAID ==
[~2022-10-10] VITALS: Ht 160.1 cm; Wt 100.9 kg
[2022-10-10] VITALS (9 sets, daily range): BP systolic 90–116; BP diastolic 53–65; PULSE 83–107; TEMP 98.9
[~2022-10-10 14:35] MED LIST changes: +00186-0370-20 IH; +BRIVIACT100 MG PO; +FOLIC ACID 11 MG/TA1 PO; +PRILOTC PO
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
[2022-10-10 21:08] LABS: BASO % 0.3 % (0.0-2.0); EOS # 0.2 K/mm3 (0.0-0.7); EOS % 1.2 % (0.0-4.0); GRAN # 9.6 K/mm3 (1.4-6.5); GRAN % 70.9 % (42.2-75.2); HEMATOCRIT 38.8 % (37.0-47.0); HEMOGLOBIN 13.4 g/dl (12.5-16.0); LYMPH # 3.1 K/mm3 (1.2-3.4); LYMPH % 23.1 % (20.0-51.0); MEAN CELL VOLUME 89 fl (80.0-100.0); MEAN CORPUSCULAR HEMOGLOBIN 31 pg (27-31); MEAN CORPUSCULAR HGB CONC 35 g/dl (33.0-37.0); MEAN PLATELET VOLUME 10.3 fl (7.4-10.4); MONO # 0.6 K/mm3 (0.1-0.6); MONO % 4.2 % (1.7-9.3); PLATELET COUNT 322 K/mm3 (130-400); RED BLOOD COUNT 4.34 M/mm3 (4.10-5.30); REDCELL DISTRIBUTION WIDTH-CV 12.2 % (11.5-14.5)
[2022-10-10 21:30] LABS: TRICYCLIC ANTIDEPRESS URINE NEGATIVE
--- NOTE | 2022-10-10 21:46 | NUR ---
THE PATIENT HAS NOT TAKEN HER BRIVIACT TODAY. SHE IS SUPPOSED TO TAKE 100MG BID. SHE STATES "I FORGOT" WHEN ASKED IF THERE WAS A REASON SHE DIDN'T TAKE IT TODAY. SHE ALSO LEFT HER MEDICATION AT HOME, SO SHE IS UNABLE TO TAKE IT AT THIS TIME. 2145: CONTACTED REGARDING SITUATION; SEE PHYSICIAN NOTIFICATION.
[2022-10-11] VITALS (38 sets, daily range): BP systolic 77–147; BP diastolic 42–96; PULSE 54–92; TEMP 97.8–98.8
--- NOTE | 2022-10-11 00:30 | NUR ---
AT BEDSIDE TO CHECK SVE, /1. REQUESTS NOT TO GIVE SECOND DOSE OF CYTOTEC AND TO START PITOCIN AT 0200.
--- NOTE | 2022-10-11 04:50 | NUR ---
Pt up to bathroom to void. Back in bed to right lateral position for comfort. Difficulty tracing FHR due to maternal habitus, this RN at bedside adjusting ultrasound.
--- NOTE | 2022-10-11 06:25 | NUR ---
Assumed care of patient. Rests in bed, alert. States has to go to the bathroom. Ambulates to the bathroom and back. Normal saline 1000 ccs hung. Back to bed. Pen g 2.5 usha units hung as ordered. Request to lay on left side.
--- NOTE | 2022-10-11 06:45 | NUR ---
Doctor Sami here, vag check done. 0646 Artificial rupture of membranes, moderate amount of clear fluid noted. Fse and iupc placed by Dr. Gallardo. Pad changed and repositioned.
--- NOTE | 2022-10-11 07:00 | NUR ---
Rests in bed, alert. heart tones down in the eightys for seventy seconds. Patient to hands and knees. Dr. Gallardo told. States to turn pitocin off. Pitocin turned off at 0705. 0715 Blood sugar done, 88.
--- NOTE | 2022-10-11 07:30 | NUR ---
Doctor Lizabeth notified of baby having lates in the back. 0735 Dr. Barone in room with patient. Vag check done, reports still a three. Visits with patient about section. Patient agrees. 0745 section called. Patient clipped at abdominal area. Surgical scrub done.0755 Ambulates to the o.r.
--- NOTE | 2022-10-11 09:05 | NUR ---
To pacu with this nurse and anesthesia Gilbert. Patient alert, talking. Nibp on, vital signs done. Denies any discomfort at this time. Mother at bedside.
--- NOTE | 2022-10-11 09:25 | NUR ---
Asked anesthesia about given some ephedrine for patients blood pressure. Anesthesia Gilbert in room. States to give a 500 bolus of normal saline and lower patients head. Normal saline started.
--- NOTE | 2022-10-11 09:45 | NUR ---
To room 211 via bed and this nurse. Patient alert, denies any discomfort at this time. Family at bedside. Nipb on.
--- NOTE | 2022-10-11 10:30 | NUR ---
Continues to rest in bed. Denies any discomfort or needs at this time. Visits with family.
--- NOTE | 2022-10-11 11:53 | NUR ---
Rests in bed, alert. Tylenol 1000 mg given as ordered.
--- NOTE | 2022-10-11 13:13 | NUR ---
Roxicodone 5 mg one given per request and as ordered. fashion consultant in room, visits with patient.
[2022-10-12] VITALS: BP 128/72; PULSE 70; TEMP 98.1
--- NOTE | 2022-10-12 02:00 | NUR ---
Discussed with pt supervisor intermediates plan about resuming pre- medications. Pt states "I'm going to work with my other providers about what to start. I was only taking 1 psych med and I think I'm doing ok without it." Encouraged pt to follow up carefully with resuming medications as some medications are contraindicated with .
[2022-10-12 08:14] VITALS: BP 116/78; PULSE 75; TEMP 98
--- NOTE | 2022-10-12 12:32 | NUR ---
Government Relations Analyst rounds: Government Relations Analyst visit attempted; RN with Patient.
--- NOTE | 2022-10-12 13:00 | NUR ---
PT UP TO SHOWER, DRESSING REMOVED FROM INCISION. EDGES WELL APPROXIMATED, NO BLEEDING AT INCISION SITE OR SIGNS OF INFECTION. PT STATES "I THINK I OVERDID IT" FOLLOWING THE SHOWER. ASSISTED BACK INTO BED, INFANT SLEEPING IN CRIB. ENCOURAGED TO REST. PT REQUESTS BOTTLE TO SUPPLEMENT THIS FEED DUE TO PAIN AND EXHAUSTION. BOTTLE PROVIDED. MOTHER BOTTLE FEEDS INFANT INDEPENDENTLY.
--- NOTE | 2022-10-12 15:30 | NUR ---
FOB PRESENT AT BEDSIDE PER PT REQUEST. PT'S MOTHER REMAINS AT BEDSIDE AND SUPPORTIVE. APPRORPIATE INTERACTION NOTED AT THIS TIME. PT EDUCATED TO ALERT STAFF WHEN/IF SHE IS READY FOR VISITORS TO LEAVE HER ROOM. PT AGREEABLE.
[2022-10-12 17:00] VITALS: BP 107/49; PULSE 83; TEMP 98
[2022-10-12 21:00] VITALS: BP 117/64; PULSE 77; TEMP 98.4
[2022-10-13] MEDS ORDERED: ROXICODONE 55 MG/TAB PO (06:27)
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
[2022-10-13 08:50] VITALS: BP 102/56; PULSE 72; TEMP 97.8
--- NOTE | 2022-10-13 11:22 | NUR ---
THIS RN FINDS PT CRYING IN HER ROOM AND APPEARS FRUSTRATED. PT STATES SHE IS "OVERWHELMED WITH , HER BOOBS FEEL FULL, AND JOS SEEMS HUNGRY, BUT THEN SHE WONT EAT. IM TIRED, SHES TIRED AND I WANT HER TO HAVE MY MILK, NOT FORMULA." THIS NURSE OFFERS ASSISTANCE WITH BEGINNING TO PUMP AND FEED INFANT FROM BOTTLES PER PT REQUEST FOLLOWING EDUCATION ON OPTIONS MOVING FORWARD TO HELP EASE HER MIND. PT EDUCATED ON BREASTMILK CONTRAINDICATIONS SUCH MARIJUANA USE AND CERTAIN PSYCH MEDICATIONS SHE HAS BEEN ON IN HER PAST. PT STATES "IM NOT ON ANY MEDS, AND FEEL FINE WITHOUT THEM" AND AGREES TO "NOT USE ANY MARIJUANA." PT AGREEABLE TO POC AND REQUESTING TO MOVE FORWARD WITH PUMPING AND FEEDING.
[2022-10-13 16:28] VITALS: BP 132/68; PULSE 70; TEMP 97.9
[2022-10-13 23:30] VITALS: BP 113/50; PULSE 74; TEMP 98.3
[2022-10-14 08:30] VITALS: BP 138/73; PULSE 80; TEMP 98
--- NOTE | 2022-10-14 14:19 | NUR ---
PT APPROPRIATE WITH THROUGHOUT SHIFT. PUMPING AND FEEDING FRESH BREASTMILK Q3 HOURS INDEPENDENTLY. STATES SHE "IS FEELING MUCH BETTER FEEDING THE INFANT THIS WAY INSTEAD OF DIRECTLY FROM THE BREAST, AND MUCH LESS FRUSTRATED TODAY." PAIN WELL CONTROLLED THIS SHIFT WITH PO TYLENOL AND PRN OXY. LOCHIA REMAINS SCANT. VITAL SIGNS STABLE. AMBULATORY AROUND ROOM INDEPENDENTLY. DENIES NEEDS AT THIS TIME.
[2022-10-14 16:45] VITALS: BP 109/66; PULSE 73; TEMP 97.8
[2022-10-14 20:00] VITALS: BP 104/66; PULSE 78; TEMP 98.7
[2022-10-15 07:40] VITALS: BP 120/82; PULSE 72; TEMP 97.9
--- NOTE | 2022-10-15 13:15 | NUR ---
DISCHARGE TEACHING COMPLETED. EDUCATED ON FOLLOW UP APPOINTMENTS AND PRESCRIPTION. QUESTIONS INVITED AND ANSWERED.
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
== END 2022-10-15 13:30 | disposition home or self-care (01) | DRG 787 ==
LOC: OB 14:35 → LDR 18:47 → OB 18:47
PROVIDERS: Obstetrics & Gynecology; ADMIT Student in an Organized Health Care Education/Training Program
PROC: 10D00Z1 Extraction of Products of Conception, Low, Open Approach (ICD-10-PCS; principal; 2022-10-11)
DX: O36.5930 Maternal care for other known or suspected poor fetal growth, third trimester, not applicable or unspecified (principal); F31.81 Bipolar II disorder; O99.354 Diseases of the nervous system complicating childbirth; Z3A.38 38 weeks gestation of pregnancy; Z37.0 Single live birth; K21.9 Gastro-esophageal reflux disease without esophagitis; O99.824 Streptococcus B carrier state complicating childbirth; O99.62 Diseases of the digestive system complicating childbirth; O99.344 Other mental disorders complicating childbirth; J45.909 Unspecified asthma, uncomplicated; O99.52 Diseases of the respiratory system complicating childbirth; O24.420 Gestational diabetes mellitus in childbirth, diet controlled; O69.0XX0 Labor and delivery complicated by prolapse of cord, not applicable or unspecified; F20.9 Schizophrenia, unspecified; O76 Abnormality in fetal heart rate and rhythm complicating labor and delivery; G40.909 Epilepsy, unspecified, not intractable, without status epilepticus; E05.00 Thyrotoxicosis with diffuse goiter without thyrotoxic crisis or storm; O99.284 Endocrine, nutritional and metabolic diseases complicating childbirth; O99.334 Smoking (tobacco) complicating childbirth; F17.210 Nicotine dependence, cigarettes, uncomplicated; O34.13 Maternal care for benign tumor of corpus uteri, third trimester; F41.9 Anxiety disorder, unspecified; F43.10 Post-traumatic stress disorder, unspecified; O99.214 Obesity complicating childbirth; D25.9 Leiomyoma of uterus, unspecified; E28.2 Polycystic ovarian syndrome; G47.00 Insomnia, unspecified; Z90.49 Acquired absence of other specified parts of digestive tract; Z88.6 Allergy status to analgesic agent; Z88.5 Allergy status to narcotic agent; Z91.013 Allergy to seafood; Z88.7 Allergy status to serum and vaccine; Z88.8 Allergy status to other drugs, medicaments and biological substances; Z91.048 Other nonmedicinal substance allergy status; Z91.51 Personal history of suicidal behavior
CPT/HCPCS: J0171; J0690; J1100; J1885; J2370; J2405; J2540; J2590; J7030

== ENCOUNTER 2024-01-26 17:26 | Emergency (ER) | payer MEDICAID ==
[~2024-01-26] VITALS: Ht 160 cm; Wt 100.0 kg
[2024-01-26 17:34] VITALS: TEMP 98.8
[2024-01-26 19:43] LABS: COLLECTION METHOD CLEAN CATCH
[2024-01-26 19:49] LABS: PH 5.5 (5.0-8.5); URINE APPEARANCE CLEAR (CLEAR/HAZY); URINE BLOOD NEGATIVE (NEGATIVE); URINE COLOR YELLOW (YELLOW); URINE GLUCOSE NEGATIVE (NEGATIVE); URINE KETONE 2+ (NEGATIVE); URINE NITRATE NEGATIVE (NEGATIVE); URINE PROTEIN(semi-quant) NEGATIVE (NEGATIVE); URINE UROBILINOGEN 0.2 E.U/dL (0.2-1.0)
[2024-01-26] MEDS ORDERED: NS 1,000 ML IV ONE (20:00)
[2024-01-26] MEDS ORDERED: Ondansetron 4 MG/2 ML VIAL IV ONE (20:00)
[2024-01-26 21:00] VITALS: BP 148/70; PULSE 64
== END 2024-01-26 21:01 | disposition home or self-care (01) ==
LOC: COL.ER 17:26
PROVIDERS: Nurse Practitioner Primary Care
DX: O99.619 Diseases of the digestive system complicating pregnancy, unspecified trimester (principal); K52.9 Noninfective gastroenteritis and colitis, unspecified; O99.330 Smoking (tobacco) complicating pregnancy, unspecified trimester; F17.200 Nicotine dependence, unspecified, uncomplicated; Z3A.00 Weeks of gestation of pregnancy not specified
CPT/HCPCS: J2405; J7030

== ENCOUNTER 2024-04-20 23:18 | Emergency (ER) | payer MEDICAID ==
[~2024-04-20] VITALS: Ht 160 cm; Wt 102.3 kg
[2024-04-20 23:25] VITALS: TEMP 99
[2024-04-20] MEDS ORDERED: NS 1,000 ML IV ONE (23:45)
[2024-04-20 23:49] LABS: COLLECTION METHOD CLEAN CATCH
[2024-04-20 23:57] LABS: PH 6.5 (5.0-8.5); URINE APPEARANCE CLEAR (CLEAR/HAZY); URINE BLOOD NEGATIVE (NEGATIVE); URINE COLOR YELLOW (YELLOW); URINE GLUCOSE NEGATIVE (NEGATIVE); URINE KETONE NEGATIVE (NEGATIVE); URINE NITRATE NEGATIVE (NEGATIVE); URINE PROTEIN(semi-quant) NEGATIVE (NEGATIVE); URINE UROBILINOGEN 0.2 E.U/dL (0.2-1.0)
[2024-04-21 00:05] LABS: BASO % 0.2 % (0.0-2.0); EOS # 0.2 K/mm3 (0.0-0.7); EOS % 1.3 % (0.0-4.0); GRAN # 7.7 K/mm3 (1.4-6.5); HEMOGLOBIN 12.4 g/dl (12.5-16.0); LYMPH # 3.8 K/mm3 (1.2-3.4); LYMPH % 30.8 % (20.0-51.0); MEAN CELL VOLUME 90 fl (80.0-100.0); MEAN CORPUSCULAR HEMOGLOBIN 32 pg (27-31); MEAN CORPUSCULAR HGB CONC 35 g/dl (33.0-37.0); MONO # 0.5 K/mm3 (0.1-0.6); MONO % 4.4 % (1.7-9.3); PLATELET COUNT 268 K/mm3 (130-400); RED BLOOD COUNT 3.93 M/mm3 (4.10-5.30); REDCELL DISTRIBUTION WIDTH-CV 12.7 % (11.5-14.5)
[2024-04-21 00:06] LABS: HEMATOCRIT 35.4 % (37.0-47.0)
[2024-04-21 00:20] LABS: ALBUMIN 2.7 g/dL (3.5-5.0); BILIRUBIN,TOTAL 0.2 mg/dL (0.2-1.2); CREATININE, serum 0.59 mg/dL (0.57-1.11); POTASSIUM 3.6 mEq/L (3.5-4.5); TOTAL PROTEIN 7.3 g/dl (6.2-8.1)
[2024-04-21 01:18] VITALS: BP 106/60; PULSE 94
== END 2024-04-21 01:18 | disposition home or self-care (01) ==
LOC: COL.ER 23:18
PROVIDERS: Nurse Practitioner
DX: O26.892 Other specified pregnancy related conditions, second trimester (principal); R10.30 Lower abdominal pain, unspecified; O99.332 Smoking (tobacco) complicating pregnancy, second trimester; F17.210 Nicotine dependence, cigarettes, uncomplicated; Z3A.23 23 weeks gestation of pregnancy
CPT/HCPCS: J7030